=== PATIENT | female | born 1985 | race Caucasian/White ===

== ENCOUNTER → 2016-07-20 | Outpatient (CLI) | payer BC, OTHER ==
[~2016-07-20] MED LIST: CIPR-255 PO; FERR1TAB23 PO; LPR25 PO; METO25TA56 PO; METR500T PO; ONDA4TAB10 SL; PRENTAB26 PO
[2016-07-20 12:54] LABS: BASO % 0.3 %; BASO ABS # 0.02 K/uL (0-0.2); COMPLETE YES; EOS % 6.8 %; HEMATOCRIT 38.1 % (37-47); IG% 0.3 %; LYMPH % 25.6 %; MEAN CELL VOLUME 84.3 fL (80-100); MEAN CORPUSCULAR HEMOGLOBIN 28.5 pg (25-34); MEAN CORPUSCULAR HGB CONC 33.9 g/dl (32-36); MEAN PLATELET VOLUME 10.1 fL (7.4-10.4); PLATELET COUNT 275 K/uL (130-400); RED BLOOD COUNT 4.52 M/uL (4.2-5.4); WHITE BLOOD COUNT 7.03 K/uL (4.8-10.8)
== END | disposition home or self-care (01) ==
LOC: C.LAB1850 10:57
PROVIDERS: ATTEND Internal Medicine
DX: D64.9 Anemia, unspecified (principal); F43.22 Adjustment disorder with anxiety

== ENCOUNTER 2016-09-19 20:19 | Emergency (ER) | payer BC, OTHER ==
[~2016-09-19] VITALS: Ht 160 cm; Wt 80.3 kg
[~2016-09-19 20:19] MED LIST changes: -CIPR-255 PO; -LPR25 PO; -METR500T PO; -ONDA4TAB10 SL
[2016-09-19 20:22] VITALS: TEMP 36.7; Ht 160 cm; Wt 80.3 kg
[2016-09-19] MEDS ORDERED: METOPROLOL TARTRATE 25 MG TAB PO ONE (20:30)
[2016-09-19] MEDS ORDERED: LPR25 PO (20:52)
[2016-09-19 21:07] VITALS: BP 122/78; PULSE 92; O2SAT 95
--- NOTE | 2016-09-19 23:45 | EMERGENCY ROOM VISIT NOTE ---
History First contact with patient: 20:25 Chief Complaint: MEDICATION REFILL REQUEST Stated Complaint: FORGOT TO [facility], PHARM IS CLOSED History of Present Illness The patient is a 30 year old female who presents to the Emergency Room requesting a dose of Lopressor. The patient has a history of SVT and is on 25 mg twice daily. The patient completed her prescription this morning, and called in her refill. 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 She is concerned that she may have recurrence of her symptoms. She is currently asymptomatic and rates her discomfort a 0/10. Review of Systems More than 6 systems were reviewed and otherwise negative with the exception of history of present illness. Past Medical/Surgical History Medical Problems: (1) Anxiety (2) section (3) ECOLI UTI (4) Fever (5) Mitral valve prolapse (6) with viral (7) with viral (8) Supraventricular tachycardia (9) Tachycardia (10) Viral disease affecting in third trimester, antepartum Family History Diabetes mellitus Heart disease Hypertension Social History Smoking Status: Never Smoker Alcohol Use: occasionally Drug Use: none Marital Status: in relationship Housing Status: lives with family Occupation Status: employed Current/Historical Medications Scheduled Metoprolol Tartrate (Lopressor), 25 MG PO BID Multivit/Min/Iron/Fol Ac/Pren ( Vitamin), 1 TAB PO QAM Allergies Coded Allergies: No Known Allergies (Verified , 03/22/16) Physical Exam Vital Signs Date Time Temp Pulse Resp B/P Pulse Ox O2 Delivery O2 Flow Rate FiO2 09/19/16 21:07 92 18 122/78 95 09/19/16 20:22 36.7 96 18 117/75 95 Room Air Pain Rating (0-10): 0 Physical Exam VITALS: Vitals are noted on the nurse's note and reviewed by myself. Vital signs stable. GENERAL: Well-developed, well-nourished, white female, who is in no acute distress and resting comfortably. Patient is cooperative with the examination. HEART: Regular rate and rhythm without murmurs gallops or rubs. LUNGS: Clear to auscultation bilaterally without wheezes, rales or rhonchi. No retractions or accessory muscle use. Medical Decision & Procedures Medications Administered Medications (Trade) Dose Ordered Sig/Anthony Route Start Time Stop Time Status Last Admin Dose Admin Metoprolol Tartrate (Lopressor Tab) 25 mg NOW ONCE PO 09/19/16 20:30 09/19/16 20:31 DC 09/19/16 21:06 25 MG ED Course Physical exam and history were performed. Nursing notes and EMR were reviewed. Patient appears to have a need for a dose of Toprol. The patient evidently takes 25 mg twice daily, and was given a dose of the medication here in the department. She is confident that she will be able to make it to the pharmacy in the morning, and does not need an additional dose to go home with. The patient was invited back to the emergency department with any new, worsening, or concerning symptoms. The chart was completed utilizing [employer] Speech Voice Recognition Software. Grammatical errors, random word insertions, pronoun errors, and incomplete sentences are an occasional consequence of this system due to software limitations, ambient noise, and hardware issues. Any formal questions or concerns about the content, text, or information contained within the body of this dictation should be directly addressed to the provider for clarification. . Medical Decision Differential diagnosis includes, but is not limited to: Need for medication, medication refill, SVT, and others Impression Primary Impression: Medication administered Departure Information Dispostion Home / Self-Care Condition GOOD Forms HOME CARE DOCUMENTATION FORM, IMPORTANT VISIT INFORMATION Patient Instructions My [facility] Additional Instructions You were seen and evaluated today on an emergency basis only. This is not a substitute for, or an effort to provide, complete comprehensive medical care. It is not possible to recognize and treat all injuries or illnesses in a single emergency department visit. For this reason it is recommended that you followup with your primary care physician with any ongoing or persistent symptoms. Continue your medications as described. You are welcome to return to the emergency department anytime with new, worsening, or concerning symptoms.
== END 2016-09-19 21:08 | disposition home or self-care (01) ==
LOC: C.EDB 20:20 → C.EDD 21:08
DX: Z76.0 Encounter for issue of repeat prescription (principal); I47.1 Supraventricular tachycardia; F41.9 Anxiety disorder, unspecified; I34.1 Nonrheumatic mitral (valve) prolapse; Z83.3 Family history of diabetes mellitus; Z82.49 Family history of ischemic heart disease and other diseases of the circulatory system

== ENCOUNTER 2016-09-28 08:35 | Emergency (ER) | payer BC, OTHER ==
[~2016-09-28] VITALS: Ht 160 cm; Wt 71.0 kg
[~2016-09-28 08:35] MED LIST changes: -FERR1TAB23 PO; +LPR25 PO; -METO25TA56 PO
[2016-09-28 08:41] VITALS: TEMP 36.9; Ht 160 cm; Wt 71.0 kg
--- NOTE | 2016-09-28 09:10 | EMERGENCY ROOM VISIT NOTE ---
ED Visit Note First contact with patient: 09:07 CHIEF COMPLAINT: Allergic reaction HISTORY OF PRESENT ILLNESS: This 30-year-old female is patient presents to the emergency department via EMS after they developed sudden onset of hives and itching that started about 7 AM this morning. Patient states she will comply around 5 this morning having some abdominal cramps secondary to her menstrual period, she took 2 Aleve and went back to bed. She woke up at 7 with itching, redness, swelling of her hands and feet, and noted hives all over her body. She also states she felt that her face and lips were swollen, and she felt some difficulty breathing. She called the ambulance, who noted that her symptoms were improving on arrival and she did not have any notable facial swelling at that time. Patient states her symptoms lasted about 30-45 minutes and self resolved, she did not take any medications to treat her allergic reaction. She states she has taken Aleve one other time with no difficulties. Her only other recent change was a new body wash that she used during her shower last night at 8 PM. The patient does not have swelling of the face and lips and does not currently have a sensation of swelling in the throat. The patient has no current shortness of breath. Has not had previous reactions and like this before. The patient was offered IV Benadryl by EMS, however she declined this because her symptoms were improving. Per the patient she was noted to have an elevated heart rate in the 140s by EMS, which is why she was brought to the ER. Patient states she has a history of SVT and is prescribed metoprolol twice a day, she did not take her morning dose yet today. There have been no other changes in the patient's soaps, detergents, foods, medications, or other environmental factors. REVIEW OF SYSTEMS: A review of systems was performed with positives and pertinent negatives listed in the history of present illness. All other systems were reviewed and are negative. ALLERGIES: See chart MEDICATIONS: See chart PMH: See chart SOCIAL HISTORY: See chart PHYSICAL EXAM:VITALS: Vitals are noted on the nurse's note and reviewed by myself. Vital signs stable. GENERAL: Pleasant and cooperative, in no acute distress, non-diaphoretic, well- developed well-nourished. THROAT: No pharyngeal edema or injection, no exudates or tonsillar hypertrophy. Airway patent. No tongue swelling noted. LUNGS: Clear to auscultation and breath sounds equal, no wheezes, rales, or rhonchi. EYES: PERRLA, EOMI, no discharge or injection. NEUROLOGICAL: Alert and oriented to person, place, and time. Normal sensation to light and sharp touch. HEART: Regular rate without murmurs, ectopy, gallops, or rubs. SKIN: No hives or rash noted. No erythema or swelling to the hands or feet. The lips are not swollen. There is no periorbital swelling. EMERGENCY DEPARTMENT COURSE: I examined the patient. She states that her symptoms have fully resolved, she still remains mildly tachycardic. The patient was given IV fluid bolus, oral Benadryl and Zantac. She was monitored in the ED for more than 2 hours with no return of allergic symptoms. Tachycardia resolved. She felt much improved and was discharged in stable condition with the instructions for continued management and follow-up. Medication Reconciliation: I attest that I have personally reviewed the patient' s current medication list. Blood pressure screening: The patient was found to have normal blood pressure on screening and does not require follow-up for repeat blood pressure check. Problem List Medical Problems: (1) Anxiety Status: Chronic (2) section Status: Resolved (3) Mitral valve prolapse Status: Chronic (4) Supraventricular tachycardia Status: Chronic Current/Historical Medications Scheduled Metoprolol Tartrate (Lopressor), 25 MG PO BID Allergies Coded Allergies: No Known Allergies (Verified , 09/28/16) Vital Signs Date Time Temp Pulse Resp B/P (MAP) Pulse Ox O2 Delivery O2 Flow Rate FiO2 09/28/16 11:30 85 16 102/66 99 Room Air 09/28/16 10:33 79 16 99/66 98 Room Air 09/28/16 08:41 36.9 108 16 113/90 97 Room Air 09/28/16 08:39 110 Medications Administered Medications (Trade) Dose Ordered Sig/Anthony Route Start Time Stop Time Status Last Admin Dose Admin Sodium Chloride 1,000 ml @ 999 mls/hr Q1H1M STAT IV 09/28/16 09:33 09/28/16 10:33 DC 09/28/16 09:42 999 MLS/HR Diphenhydramine HCl (Benadryl Cap) 25 mg NOW ONCE PO 09/28/16 09:45 09/28/16 09:46 DC 09/28/16 09:42 25 MG Ranitidine HCl (zANTac TAB) 150 mg NOW ONCE PO 09/28/16 09:45 09/28/16 09:46 DC 09/28/16 09:41 150 MG Ondansetron HCl (Zofran Inj) 4 mg NOW STAT IV 09/28/16 09:43 09/28/16 09:44 DC 09/28/16 10:04 4 MG Departure Information Impression Primary Impression: Acute allergic reaction Dispostion Home / Self-Care Condition GOOD Referrals RV. Butts MD (PCP) Patient Instructions ED Allergic Reaction General Other, My [facility] Additional Instructions You have been treated in the Emergency Department for an Allergic Reaction. You have been treated and monitored in the Emergency Department appropriately. You may take Benadryl (diphenhydramine) 25-50 mg orally every 6 hours as needed for itching or rash.. This medication is [id number] and you will NOT need a prescription to purchase this at your local pharmacy. Drink plenty of fluids to stay well hydrated. As with every Emergency Department visit, you should follow-up with your primary care provider in a few days for reevaluation. Return to the Emergency Department if your current symptoms worsen despite treatment course outlined above, or if you develop any of the following symptoms : wheezing, tongue or face swelling, tightness in your throat, shortness of breath, or fainting. Problem Qualifiers Primary Impression: Acute allergic reaction Encounter type: initial encounter Qualified Codes: T78.40XA - Allergy, unspecified, initial encounter
[2016-09-28] MEDS ORDERED: SODIUM CHLORIDE 0.9% 1000ML 1,000 ML IV STA (09:33)
[2016-09-28] MEDS ORDERED: ONDANSETRON INJ 2 MG/ML 2 ML VIAL IV STA (09:43)
[2016-09-28] MEDS ORDERED: RANITIDINE HCL 150 MG TAB PO ONE (09:45)
[2016-09-28 11:30] VITALS: BP 102/66; PULSE 85; O2SAT 99
== END 2016-09-28 11:45 | disposition home or self-care (01) ==
LOC: EDBD 08:35 → C.EDB 08:36
DX: T78.40XA Allergy, unspecified, initial encounter (principal); X58.XXXA Exposure to other specified factors, initial encounter; I34.1 Nonrheumatic mitral (valve) prolapse; F41.9 Anxiety disorder, unspecified; Z79.899 Other long term (current) drug therapy

== ENCOUNTER 2016-10-24 05:52 | Emergency (ER) | payer BC, OTHER ==
[~2016-10-24] VITALS: Ht 157.5 cm; Wt 69.9 kg
[~2016-10-24 05:52] MED LIST changes: -PRENTAB26 PO
[2016-10-24 05:56] VITALS: TEMP 36.7; Ht 157.5 cm; Wt 69.9 kg
[2016-10-24] MEDS ORDERED: ONDANSETRON 4MG OD TAB PO STA (06:34)
[2016-10-24 06:41] LABS: BASO % 0.1 %; BASO ABS # 0.01 K/uL (0-0.2); COMPLETE YES; EOS % 2.9 %; HEMATOCRIT 44.6 % (37-47); IG% 0.4 %; LYMPH % 16.1 %; MEAN CELL VOLUME 82.9 fL (80-100); MEAN CORPUSCULAR HEMOGLOBIN 27.9 pg (25-34); MEAN CORPUSCULAR HGB CONC 33.6 g/dl (32-36); MEAN PLATELET VOLUME 9.3 fL (7.4-10.4); MONO % 6.2 %; NEUT % 74.3 %; PLATELET COUNT 392 K/uL (130-400); RED BLOOD COUNT 5.38 M/uL (4.2-5.4); WHITE BLOOD COUNT 13.68 K/uL (4.8-10.8)
[2016-10-24 06:43] LABS: CREATININE 0.86 mg/dl (0.60-1.20); POTASSIUM 3.6 mmol/L (3.5-5.1)
[2016-10-24 06:44] LABS: URINE APPEARANCE CLEAR (CLEAR); URINE BILIRUBIN NEG (NEG); URINE COLOR YELLOW; URINE EPITHELIAL CELL AUTO >30 /lpf (0-5); URINE NITRITE NEG (NEG); URINE SPECIFIC GRAVITY 1.029 (1.000-1.030); UROBILINOGEN NEG (NEG); ZZUR CULT IF INDIC CLEAN CATCH NO
--- NOTE | 2016-10-24 06:44 | EMERGENCY ROOM VISIT NOTE ---
History Report prepared by Amina: Juliana Lindsay Under the Supervision of: Dr. Jalil Contreras M.D. First contact with patient: 06:27 Chief Complaint: ABDOMINAL PAIN Stated Complaint: SEVERE STOMACH PAIN Nursing Triage Summary: Patient c/o upper abdominal pain with associated n/v that began yesterday. History of Present Illness The patient is a 31 year old female who presents to the Emergency Room with complaints of worsening epigastric abdominal pain that started 5 hours ago, around 0100. The patient states that the pain woke her up from sleep and she was unable to sleep afterward. She is also experiencing nausea and diarrhea. The diarrhea started yesterday. The patient denies vomiting as well as fevers and chills. She states that she experienced an achy feeling in her bilateral lower extremities last night, but she denies any lower extremity pain currently. The patient states that she ate [employer] 2 days ago and suspects that the pizza could have made her sick. However, she states that no one else that ate the pizza got sick. The patient states that the only thing that she ate yesterday was yogurt. She experienced similar abdominal pain and associated diarrhea in the past when she was here for an allergic reaction 1 month ago. She states that she experienced abdominal pain and diarrhea then it resolved and she developed hives. The patient states that she had an E. coli infection in her urine in 2010, but denies any history of infections in her stool. Source of History: patient Onset: 5 hours ago, around 0100 Position: abdomen (epigastric) Quality: other (abdominal pain) Timing: worsening Associated Symptoms: + nausea, + diarrhea, No fevers, No chills, No vomiting Note: ache in bilateral lower extremities Review of Systems All systems have been listed, reviewed, and are negative other than those previously mentioned. Please see Additional Medical History Sheet. Past Medical & Surgical Medical Problems: (1) Anxiety (2) section (3) ECOLI UTI (4) Fever (5) Mitral valve prolapse (6) with viral (7) with viral (8) Supraventricular tachycardia (9) Tachycardia (10) Viral disease affecting in third trimester, antepartum Family History Cancer Diabetes mellitus Heart disease Hypertension Lung disease Social History Smoking Status: Never Smoker Alcohol Use: occasionally Drug Use: none Marital Status: in relationship Housing Status: lives with family Occupation Status: employed Current/Historical Medications Scheduled Metoprolol Tartrate (Lopressor), 25 MG PO BID Ondasetron Odt (Zofran Odt), 4 MG SL Q6H Allergies Coded Allergies: Dicyclomine (Verified Allergy, Intermediate, hives, extremity swelling, 10/24/16) po Bentyl given in ER pt had reaction with in 30 mins with hives, swelling Physical Exam Vital Signs Date Time Temp Pulse Resp B/P (MAP) Pulse Ox O2 Delivery O2 Flow Rate FiO2 10/24/16 13:10 106 18 107/68 98 10/24/16 12:01 101 18 114/77 96 Room Air 10/24/16 10:08 109 20 109/79 100 Room Air 10/24/16 09:05 103 10/24/16 08:55 110 20 117/65 100 10/24/16 08:44 139 10/24/16 08:12 125 16 97 10/24/16 08:12 125 16 97 10/24/16 08:11 109/89 10/24/16 08:11 109/89 10/24/16 08:07 134 15 100 10/24/16 08:07 134 15 100 10/24/16 08:06 119/86 10/24/16 08:06 119/86 10/24/16 08:03 117/80 10/24/16 08:03 117/80 10/24/16 08:02 135 16 100 10/24/16 08:02 135 16 100 10/24/16 07:57 105/82 10/24/16 07:57 105/82 10/24/16 07:52 140 20 129/86 100 10/24/16 05:56 36.7 102 18 109/73 97 Room Air Physical Exam GENERAL: Patient awake, alert, oriented x 3. Patient follows commands. Patient does not appear toxic. Patient is adequately hydrated and well- nourished. SKIN: No erythema, pallor, cyanosis or rash HEENT: Normal head, pupils equal, reactive to light and accommodation. Oral cavity and posterior pharynx appear normal. Neck: Without adenopathy, no neck vein distention. LUNGS: Clear to auscultation. No wheezes, no rales, no rhonchi. HEART: No murmurs. No gallops. No rubs ABDOMEN: Vague epigastric tenderness. Bowel sounds present. No masses, no rebound, no guarding, no hepatomegaly or splenomegaly. EXTREMITIES: No signs of trauma. No pedal or pretibial edema. No calf or thigh tenderness. NEUROLOGIC: Cranial nerves II-XII within normal limits. No gross motor sensory function deficits. Medical Decision & Procedures Laboratory Results 10/24/16 06:08 Red Blood Count 5.38, Mean Corpuscular Volume 82.9, Mean Corpuscular Hemoglobin 27.9, Mean Corpuscular Hemoglobin Concent 33.6, Mean Platelet Volume 9.3, Neutrophils (%) (Auto) 74.3, Lymphocytes (%) (Auto) 16.1, Monocytes (%) (Auto) 6.2, Eosinophils (%) (Auto) 2.9, Basophils (%) (Auto) 0.1, Neutrophils # (Auto) 10.17, Lymphocytes # (Auto) 2.20, Monocytes # (Auto) 0.85, Eosinophils # (Auto) 0.39, Basophils # (Auto) 0.01 10/24/16 06:08 Test 10/24/16 06:08 White Blood Count 13.68 K/uL (4.8-10.8) Red Blood Count 5.38 M/uL (4.2-5.4) Hemoglobin 15.0 g/dL (12.0-16.0) Hematocrit 44.6 % (37-47) Mean Corpuscular Volume 82.9 fL (80-100) Mean Corpuscular Hemoglobin 27.9 pg (25-34) Mean Corpuscular Hemoglobin Concent 33.6 g/dl (32-36) Platelet Count 392 K/uL (130-400) Mean Platelet Volume 9.3 fL (7.4-10.4) Neutrophils (%) (Auto) 74.3 % Lymphocytes (%) (Auto) 16.1 % Monocytes (%) (Auto) 6.2 % Eosinophils (%) (Auto) 2.9 % Basophils (%) (Auto) 0.1 % Neutrophils # (Auto) 10.17 K/uL (1.4-6.5) Lymphocytes # (Auto) 2.20 K/uL (1.2-3.4) Monocytes # (Auto) 0.85 K/uL (0.11-0.59) Eosinophils # (Auto) 0.39 K/uL (0-0.5) Basophils # (Auto) 0.01 K/uL (0-0.2) RDW Standard Deviation 38.8 fL (36.4-46.3) RDW Coefficient of Variation 12.8 % (11.5-14.5) Immature Granulocyte % (Auto) 0.4 % Immature Granulocyte # (Auto) 0.06 K/uL (0.00-0.02) Nucleated RBC Absolute Count (auto) 0.00 K/uL (0-0) Nucleated Red Blood Cells % 0.0 % Urine Color YELLOW Urine Appearance CLEAR (CLEAR) Urine pH 6.0 (4.5-7.5) Urine Specific [place] 1.029 (1.000-1.030) Urine Protein TRACE (NEG) Urine Glucose (UA) NEG (NEG) Urine Ketones NEG (NEG) Urine Occult Blood TRACE (NEG) Urine Nitrite NEG (NEG) Urine Bilirubin NEG (NEG) Urine Urobilinogen NEG (NEG) Urine Leukocyte Esterase NEG (NEG) Urine WBC (Auto) 1-5 /hpf (0-5) Urine RBC (Auto) 0-4 /hpf (0-4) Urine Hyaline Casts (Auto) 5-10 /lpf (0-5) Urine Epithelial Cells (Auto) >30 /lpf (0-5) Urine Bacteria (Auto) NEG (NEG) Urine Test NEG (NEG) Anion Gap 7.0 mmol/L (3-11) Est Creatinine Clear Calc Drug Dose 88.4 ml/min Estimated GFR () 105.8 Estimated GFR (Non- 91.3 BUN/Creatinine Ratio 16.0 (10-20) Calcium Level 9.0 mg/dl (8.5-10.1) Total Bilirubin 0.6 mg/dl (0.2-1) Aspartate Amino Transf (AST/SGOT) 12 U/L (15-37) Alanine Aminotransferase (ALT/SGPT) 21 U/L (12-78) Alkaline Phosphatase 116 U/L (45-117) Total Protein 9.1 gm/dl (6.4-8.2) Albumin 4.1 gm/dl (3.4-5.0) Globulin 5.0 gm/dl (2.5-4.0) Albumin/Globulin Ratio 0.8 (0.9-2) Lipase 149 U/L (73-393) Date/Time Source Procedure Growth Status 10/24/16 07:40 Stool C.difficile Toxin B Gene (PCR) - Final No C. difficile toxin B gene detected Complete Laboratory results as stated above per my review. Medications Administered Medications (Trade) Dose Ordered Sig/Anthony Route Start Time Stop Time Status Last Admin Dose Admin Dicyclomine HCl (Bentyl Tab) 20 mg ONE ONCE PO 10/24/16 06:45 10/24/16 06:46 DC 10/24/16 06:59 20 MG Ondansetron HCl (Zofran Odt) 4 mg NOW STAT PO 10/24/16 06:34 10/24/16 06:36 DC 10/24/16 06:38 4 MG Diphenhydramine HCl (Benadryl Inj) 50 mg NOW STAT IV 10/24/16 07:46 10/24/16 07:48 DC 10/24/16 07:51 50 MG Morphine Sulfate (MoRPHine SULFATE INJ) 6 mg Q1H PRN IV 10/24/16 08:00 10/24/16 13:25 DC 10/24/16 09:57 6 MG Sodium Chloride 1,000 ml @ 1,000 mls/hr Q1H ONCE IV 10/24/16 08:00 10/24/16 08:59 DC 10/24/16 08:06 1,000 MLS/HR Methylprednisolone Sodium Succinate (Solu-Medrol IV) 125 mg STK-MED ONCE .ROUTE 10/24/16 07:56 10/24/16 07:57 DC 10/24/16 08:00 125 MG Diphenhydramine HCl (Benadryl Inj) 25 mg NOW STAT IV 10/24/16 10:33 10/24/16 10:34 DC 10/24/16 11:07 25 MG Ondansetron HCl (ZOFRAN ODT 4MG Home Pack) 1 homepack UD ONCE PO 10/24/16 12:30 10/24/16 12:31 DC 10/24/16 12:30 1 HOMEPACK ED Course 0628: Past medical records reviewed. The patient was evaluated in room A12. A complete history and physical examination was performed. 0634: Ordered Zofran Odt 4 mg PO 0645: Ordered Bentyl Tab 20 mg PO 0743: The nurse informed me that the patient seemed to be having an allergic reaction to the Bentyl so I went to reevaluate the patient. Upon reevaluation, the patient had erythema to her skin, tachycardia, and slight shortness of breath. 0746: Ordered Benadryl 50 mg IV 0755: I reassessed the patient. She is still experiencing more symptoms of an allergic reaction. 0756: Ordered Solu-Medrol 125 mg IV 0800: Ordered Sodium Chloride 1000 ml @ 1000 mls/hr IV, Morphine Sulfate 6 mg IV 0904: The patient is feeling much better and her heart rate has improved. 1033: Ordered Benadryl Inj 25 mg IV 1220: Upon reevaluation, the patient appeared to have improvement of her symptoms. The rash has resolve and the abdominal pain has subsided. She feels well enough to go home. I discussed today's findings with her. She verbalized agreement of the treatment plan. She was discharged home. 1230: Ordered Ondansetron HCl 1 homepack PO Medical Decision Nurses notes reviewed. Medical history sheet reviewed. Differential diagnosis includes but is not limited to: acute gastroenteritis, bowel obstruction, diverticulitis, cholecystitis. Medication Reconciliation: I attest that I have personally reviewed the patient' s current medication list. Blood pressure Screening: Patient was found to have normal blood pressure on screening and does not require follow up. Multiple labs were obtained. Please see above. WBC was slightly high. The patient was given IV fluids. The patient was given oral Bentyl and IV Zofran. She has had Zofran the past without reaction. The patient did develop an allergic reaction most likely from the Bentyl. She developed erythema over much of her body including her hands and feet. She had no wheezes. She had no respiratory distress but did have tachycardia. That resolved after treatment with Benadryl and solumedrol. Patient was observed for over 5 hours. At time of discharge the patient had minimal to no abdominal pain and the rash had completely resolved. The patient be sent home with prescription for Zofran. The patient is to take additional Benadryl as needed. She was instructed to drink extra fluids. White count is minimally elevated. C. difficile was negative. Medication Reconciliation: I attest that I have personally reviewed the patient' s current medication list. Blood pressure Screening: Patient was found to have normal blood pressure on screening and does not require follow up. Impression Primary Impression: Acute gastroenteritis Additional Impression: Acute allergic reaction Scribe Attestation The scribe's documentation has been prepared under my direction and personally reviewed by me in its entirety. I confirm that the note above accurately reflects all work, treatment, procedures, and medical decision making performed by me. Departure Information Dispostion Home / Self-Care Prescriptions Ondasetron Odt (ZOFRAN ODT) 4 Mg Tab 4 MG SL Q6H for Nausea, #10 TAB Prov: Jalil Contreras M.D. 10/24/16 Referrals RV. Butts MD (PCP) Forms HOME CARE DOCUMENTATION FORM, IMPORTANT VISIT INFORMATION Patient Instructions My [facility] Additional Instructions 1 Zofran every 4 hours as needed for nausea. Drink plenty of fluids. 25-50 mg of Benadryl every 4 hours as needed for allergic reaction. Follow-up with your family physician in 2-3 days if symptoms have not resolved. Return here sooner if abdominal pain or allergic reaction are getting worse. Problem Qualifiers Additional Impression: Acute allergic reaction Encounter type: initial encounter Qualified Codes: T78.40XA - Allergy, unspecified, initial encounter
[2016-10-24] MEDS ORDERED: DICYCLOMINE HCL 20 MG TAB PO ONE (06:45)
[2016-10-24 06:46] LABS: ALB/GLOB RATIO 0.8 (0.9-2)
[2016-10-24 06:51] LABS: MANUAL MICROSCOPIC REQUIRED? NO; REVIEW REQ? NO
[2016-10-24] MEDS ORDERED: DiphenhydrAMINE HCL 50 MG/ML VIAL IV STA ×2 (07:46→10:33)
[2016-10-24] MEDS: MoRPHine SULFATE 10 MG/ML CARP/VIAL IV PRN ×2 (07:52→09:57)
[2016-10-24] MEDS ORDERED: METHYLPREDNISOLONE 125 MG VIAL IV STA (07:56)
[2016-10-24] MEDS ORDERED: METHYLPREDNISOLONE 125 MG VIAL ONE (07:56)
[2016-10-24] MEDS ORDERED: SODIUM CHLORIDE 0.9% 1000ML 1,000 ML IV ONE (08:00)
[2016-10-24] MEDS ORDERED: ONDA4TAB10 SL (12:27)
[2016-10-24] MEDS ORDERED: ONDANSETRON HOME PACK 4MG OD TAB PO ONE (12:30)
[2016-10-24 13:10] VITALS: BP 107/68; PULSE 106; O2SAT 98
== END 2016-10-24 13:11 | disposition home or self-care (01) ==
LOC: C.EDB 05:53 → C.EDA 13:11
DX: K52.9 Noninfective gastroenteritis and colitis, unspecified (principal); T78.40XA Allergy, unspecified, initial encounter; F41.9 Anxiety disorder, unspecified; Z79.899 Other long term (current) drug therapy; Z86.19 Personal history of other infectious and parasitic diseases; Z86.79 Personal history of other diseases of the circulatory system; Z82.49 Family history of ischemic heart disease and other diseases of the circulatory system; Z83.3 Family history of diabetes mellitus; Z83.6 Family history of other diseases of the respiratory system

== ENCOUNTER 2017-01-15 10:00 | Emergency (ER) | payer BC, OTHER ==
[~2017-01-15] VITALS: Ht 157.5 cm; Wt 69.7 kg
[~2017-01-15 10:00] MED LIST changes: +ONDA4TAB10 SL
[2017-01-15 10:04] VITALS: TEMP 36.8; Ht 157.5 cm; Wt 69.7 kg
--- NOTE | 2017-01-15 10:53 | DIAGNOSTIC IMAGING REPORT ---
CHEST ONE VIEW PORTABLE HISTORY: 31 years-old Female ED eval for cp and SOB. Acute chest pain with shortness of breath. Initial exam. COMPARISON: Chest radiograph 03/22/2016 TECHNIQUE: Portable upright AP view of the chest FINDINGS: Cardiomediastinal and hilar silhouettes are within normal limits. There is no pneumothorax, pleural effusion, focal airspace consolidation or overt pulmonary edema. The bones appear grossly intact. IMPRESSION: No acute cardiopulmonary process. The above report was generated using voice recognition software. It may contain grammatical, syntax or spelling errors. Electronically signed by: Jeremy Guerrero M.D. 01/15/2017 10:52 AM Dictated Date/Time: 01/15/2017 10:51 AM
[2017-01-15 10:59] LABS: HEMATOCRIT 36.4 % (37-47); MEAN CELL VOLUME 83.3 fL (80-100); MEAN CORPUSCULAR HEMOGLOBIN 27.9 pg (25-34); MEAN CORPUSCULAR HGB CONC 33.5 g/dl (32-36); MEAN PLATELET VOLUME 9.8 fL (7.4-10.4); PLATELET COUNT 265 K/uL (130-400); RED BLOOD COUNT 4.37 M/uL (4.2-5.4); WHITE BLOOD COUNT 5.69 K/uL (4.8-10.8)
[2017-01-15] MEDS ORDERED: SODIUM CHLORIDE 0.9% 1000ML 1,000 ML IV STA (10:59)
[2017-01-15] MEDS ORDERED: KETOROLAC TROMETHAMINE 30 MG/ML VIAL IV STA (11:05)
[2017-01-15 11:08] LABS: PARTIAL THROMBOPLASTIN RATIO 1.1
[2017-01-15 11:18] LABS: ALT/SGPT 18 U/L (12-78); AST/SGOT 11 U/L (15-37); BLOOD UREA NITROGEN 12 mg/dl (7-18); BUN/CREATININE RATIO 18.9 (10-20); CALCIUM 8.4 mg/dl (8.5-10.1); CARBON DIOXIDE 23 mmol/L (21-32); CHLORIDE 109 mmol/L (98-107); CREATININE 0.65 mg/dl (0.60-1.20); GLUCOSE 89 mg/dl (70-99); POTASSIUM 3.7 mmol/L (3.5-5.1); SODIUM 140 mmol/L (136-145)
[2017-01-15 11:23] LABS: ALB/GLOB RATIO 0.9 (0.9-2); ALKALINE PHOSPHATASE 82 U/L (45-117)
[2017-01-15 11:41] LABS: PREG INTERNAL NEGATIVE QC NEG CLEAR BACKGROUND; PREG INTERNAL POSITIVE QC POS CONTROL LINE
[2017-01-15 11:59] LABS: MAGNESIUM 2.1 mg/dl (1.8-2.4)
[2017-01-15 12:24] LABS: URINE APPEARANCE CLEAR (CLEAR); URINE BILIRUBIN NEG (NEG); URINE COLOR YELLOW; URINE EPITHELIAL CELL AUTO 20-30 /lpf (0-5); URINE NITRITE NEG (NEG); URINE SPECIFIC GRAVITY 1.019 (1.000-1.030); UROBILINOGEN NEG (NEG); ZZUR CULT IF INDIC CLEAN CATCH NO
[2017-01-15 12:26] LABS: MANUAL MICROSCOPIC REQUIRED? NO; REVIEW REQ? NO
--- NOTE | 2017-01-15 13:10 | EMERGENCY ROOM VISIT NOTE ---
History Report prepared by Amina: Julieth Gaytan Under the Supervision of: Dr. Casimiro Aaron M.D. First contact with patient: 10:44 Chief Complaint: CHEST PAIN Stated Complaint: DR REFERRED, OFF/ON CHEST PAIN SINCE History of Present Illness The patient is a 31 year old female who presents to the Emergency Room with complaints of intermittent chest pain starting 4 days ago. She was sent to the ED after speaking with a nurse at her PCP's office. She has had chest pain several times throughout the day which lasts for 5 minutes at a time. She has had chest pain in the past, but never for several days at a time. The pain goes into her left shoulder and down her left arm. Yesterday, she took a deep breath and felt a sharp pain in her chest and back. She only experienced this 1 time. She has also has SOB and heart palpitations over the past 4 days. Yesterday, she felt lightheaded. She reports a persistent headache for the past 3 days. She notes that 1 week ago she had some right abdominal pain and aching in her hips. She notes that she has had this pain at times since she had a tubal ligation 1 year ago. She denies any nausea, vomiting, diaphoresis, cough, congestion, diarrhea, urinary symptoms, fever, or chills. Her last menstrual period was 3 weeks ago. She is not on control. She has a history of SVT and mitral valve prolapse. She experiences SVT once a year which usually required adenosine in the ED. She was recommended to have an ablation in the future. Her currently symptoms do not feel like SVT. She is on metoprolol. She denies any history of clots or cancer. She denies any recent travel or surgery. Source of History: patient Onset: 4 days ago Position: chest Quality: sharp, other (pain) Timing: intermittent Modifying Factors (Worsening): breathing (deep breathing, one time) Associated Symptoms: + headache, + SOB, + abdominal pain (right), + back pain (episodic), No fevers, No chills, No diaphoresis, No cough, No nausea, No vomiting, No diarrhea, No urinary symptoms Note: Pt reports left shoulder and left arm pain, palpitations, lightheadedness, hip pain. Pt denies congestion. Review of Systems See HPI for pertinent positives and negatives. A total of ten systems were reviewed and were otherwise negative. Past Medical & Surgical Medical Problems: (1) Anxiety (2) section (3) ECOLI UTI (4) Fever (5) Mitral valve prolapse (6) with viral (7) with viral (8) Supraventricular tachycardia (9) Tachycardia (10) Viral disease affecting in third trimester, antepartum Family History Cancer Diabetes mellitus Heart disease Hypertension Lung disease Social History Smoking Status: Never Smoker Alcohol Use: occasionally Drug Use: none Marital Status: in relationship Housing Status: lives with family Occupation Status: employed Current/Historical Medications Scheduled Metoprolol Tartrate (Lopressor), 25 MG PO BID Ondasetron Odt (Zofran Odt), 4 MG SL Q6H Allergies Coded Allergies: Dicyclomine (Verified Allergy, Intermediate, hives, extremity swelling, ) po Bentyl given in ER pt had reaction with in 30 mins with hives, swelling Physical Exam Vital Signs Date Time Temp Pulse Resp B/P (MAP) Pulse Ox O2 Delivery O2 Flow Rate FiO2 01/15/17 13:23 68 18 108/66 100 01/15/17 13:13 67 01/15/17 11:25 67 18 114/67 100 Room Air 01/15/17 10:35 99 Room Air 01/15/17 10:33 73 01/15/17 10:04 36.8 80 20 124/76 99 Room Air Physical Exam GENERAL: Awake, alert, well-appearing, in no distress HENT: Normocephalic, atraumatic. Oropharynx unremarkable. EYES: Normal conjunctiva. Sclera non-icteric. NECK: Supple. No nuchal rigidity. FROM. No JVD. RESPIRATORY: Clear to auscultation. CARDIAC: Regular rate, normal rhythm. Extremities warm and well perfused. Pulses equal. ABDOMEN: Soft, non-distended. No tenderness to palpation. No rebound or guarding. No masses. RECTAL: Deferred. MUSCULOSKELETAL: Chest examination reveals no tenderness. The back is symmetrical on inspection without obvious abnormality. There is no CVA tenderness to palpation. No joint edema. LOWER EXTREMITIES: Calves are equal size bilaterally and non-tender. No edema. No discoloration. NEURO: Normal sensorium. No sensory or motor deficits noted. SKIN: No rash or jaundice noted. Medical Decision & Procedures ER Provider Diagnostic Interpretation: Radiology results as stated below per my review and radiologist interpretation: CHEST ONE VIEW PORTABLE HISTORY: 31 years-old Female ED eval for cp and SOB. Acute chest pain with shortness of breath. Initial exam. COMPARISON: Chest radiograph 03/22/2016 TECHNIQUE: Portable upright AP view of the chest FINDINGS: Cardiomediastinal and hilar silhouettes are within normal limits. There is no pneumothorax, pleural effusion, focal airspace consolidation or overt pulmonary edema. The bones appear grossly intact. IMPRESSION: No acute cardiopulmonary process. The above report was generated using voice recognition software. It may contain grammatical, syntax or spelling errors. Electronically signed by: Jeremy Guerrero M.D. 01/15/2017 10:52 AM Dictated Date/Time: 01/15/2017 10:51 AM Laboratory Results 01/15/17 10:35 01/15/17 10:35 Test 01/15/17 10:35 01/15/17 11:20 Red Blood Count 4.37 M/uL (4.2-5.4) Mean Corpuscular Volume 83.3 fL (80-100) Mean Corpuscular Hemoglobin 27.9 pg (25-34) Mean Corpuscular Hemoglobin Concent 33.5 g/dl (32-36) RDW Standard Deviation 37.9 fL (36.4-46.3) RDW Coefficient of Variation 12.5 % (11.5-14.5) Mean Platelet Volume 9.8 fL (7.4-10.4) Prothrombin Time 11.0 SECONDS (9.0-12.0) Prothromb Time International Ratio 1.0 (0.9-1.1) Activated Partial Thromboplast Time 29.3 SECONDS (21.0-31.0) Partial Thromboplastin Ratio 1.1 Anion Gap 8.0 mmol/L (3-11) Est Creatinine Clear Calc Drug Dose 116.8 ml/min Estimated GFR () 139.1 Estimated GFR (Non- 120.0 BUN/Creatinine Ratio 18.9 (10-20) Calcium Level 8.4 mg/dl (8.5-10.1) Magnesium Level 2.1 mg/dl (1.8-2.4) Total Bilirubin 0.4 mg/dl (0.2-1) Aspartate Amino Transf (AST/SGOT) 11 U/L (15-37) Alanine Aminotransferase (ALT/SGPT) 18 U/L (12-78) Alkaline Phosphatase 82 U/L (45-117) Total Creatine Kinase 50 U/L (26-192) Creatine Kinase MB < 0.5 ng/ml (0.5-3.6) Creatine Kinase MB Ratio (0-3.0) Troponin I < 0.015 ng/ml (0-0.045) Total Protein 7.6 gm/dl (6.4-8.2) Albumin 3.7 gm/dl (3.4-5.0) Globulin 3.9 gm/dl (2.5-4.0) Albumin/Globulin Ratio 0.9 (0.9-2) Thyroid Stimulating Hormone (TSH) 1.350 uIu/ml (0.300-4.500) Human Chorionic Gonadotropin, Qual NEG (NEG) Urine Color YELLOW Urine Appearance CLEAR (CLEAR) Urine pH 7.0 (4.5-7.5) Urine Specific [place] 1.019 (1.000-1.030) Urine Protein NEG (NEG) Urine Glucose (UA) NEG (NEG) Urine Ketones NEG (NEG) Urine Occult Blood TRACE (NEG) Urine Nitrite NEG (NEG) Urine Bilirubin NEG (NEG) Urine Urobilinogen NEG (NEG) Urine Leukocyte Esterase NEG (NEG) Urine WBC (Auto) 0 /hpf (0-5) Urine RBC (Auto) 5-10 /hpf (0-4) Urine Hyaline Casts (Auto) 1-5 /lpf (0-5) Urine Epithelial Cells (Auto) 20-30 /lpf (0-5) Urine Bacteria (Auto) NEG (NEG) Laboratory results reviewed by me Medications Administered Medications (Trade) Dose Ordered Sig/Anthony Route Start Time Stop Time Status Last Admin Dose Admin Sodium Chloride 1,000 ml @ 999 mls/hr Q1H1M STAT IV 01/15/17 10:59 01/15/17 11:59 DC 01/15/17 11:19 999 MLS/HR Ketorolac Tromethamine (Toradol Inj) 30 mg NOW STAT IV 01/15/17 11:05 01/15/17 11:07 DC 01/15/17 11:19 30 MG ECG Indication: chest pain Rate (beats per minute): 75 Rhythm: normal sinus Findings: no acute ischemic change, other (normal axis, no PA depression) ED Course 1058: The patient was evaluated in room B10. A complete history and physical exam was performed. 1059: NSS 1000 ml @ 999 mls/hr IV. 1105: Toradol Inj 30 mg IV. 1252: I reevaluated the patient. She is feeling better. I discussed results and discharge instructions: she verbalized understanding and agreement. The patient is ready for discharge. Medical Decision I reviewed the patient's past medical history, medications, and the nursing notes as described above. Differential diagnosis: arrhythmia, ectopy, pericarditis, myocarditis, ACS, pneumonia, bronchitis, dehydration, electrolyte abnormality. The patient is a 31-year-old woman with a past medical history of SVT presents emergency Department with intermittent episodes of chest pain and palpitations. History of present illness. Arrival patient is well-appearing, no acute distress, afebrile with stable vital signs. EKG is unremarkable without PA depressions or PHI. Negative Spodick sign. Sherly-myocarditis not likely. Troponin negative setting of several days of pain and otherwise has a heart score of 0, low risk. Perc negative. PE not likely. Chest x-ray unremarkable. No ectopy on telemetry during ED observation. Labs otherwise unremarkable. Findings and plan for follow-up d/w patient. Patient agreeable and d/c'd per discharge instructions. Medication Reconcilliation Current Medication List: was personally reviewed by me Blood Pressure Screening Patient's blood pressure: Normal blood pressure Blood pressure disposition: Did not require urgent referral Impression Primary Impression: Left sided chest pain Scribe Attestation The scribe's documentation has been prepared under my direction and personally reviewed by me in its entirety. I confirm that the note above accurately reflects all work, treatment, procedures, and medical decision making performed by me. Departure Information Dispostion Home / Self-Care Referrals RV. Butts MD (PCP) Patient Instructions Chest Pain - [facility], My [facility] Additional Instructions Please follow up with your glass grinder in the next 1-3 days for re-evaluation and possible holter monitor. Your exam, EKG, chest xray, and lab results did not show signs of an emergent condition at this time. Ensure hydration. Return to the emergency department for worsening symptoms as described in the accompanying instructions.
[2017-01-15 13:23] VITALS: BP 108/66; PULSE 68; O2SAT 100
== END 2017-01-15 13:20 | disposition home or self-care (01) ==
LOC: C.EDB 10:02
DX: R07.9 Chest pain, unspecified (principal); I47.1 Supraventricular tachycardia; F41.9 Anxiety disorder, unspecified; Z98.51 Tubal ligation status; Z80.9 Family history of malignant neoplasm, unspecified; Z83.3 Family history of diabetes mellitus; Z82.49 Family history of ischemic heart disease and other diseases of the circulatory system; Z79.899 Other long term (current) drug therapy

== ENCOUNTER 2017-01-19 13:10 | Emergency (ER) | payer BC, OTHER ==
[~2017-01-19] VITALS: Ht 157.5 cm; Wt 66.7 kg
[2017-01-19 13:20] VITALS: Ht 157.5 cm; Wt 66.7 kg
[2017-01-19] MEDS ORDERED: SODIUM CHLORIDE 0.9% 1000ML 1,000 ML IV STA (14:17)
[2017-01-19] MEDS ORDERED: ONDANSETRON INJ 2 MG/ML 2 ML VIAL IV STA (14:17)
--- NOTE | 2017-01-19 14:20 | EMERGENCY ROOM VISIT NOTE ---
History First contact with patient: 14:05 Chief Complaint: GI ASSESSMENT Stated Complaint: SEVERE STOMACH PAIN,DIARRHEA,VOMITING History of Present Illness The patient is a 31 year old female who presents to the Emergency Room with complaints of abdominal pain, nausea and diarrhea. The patient states that for the past 2 days, she has had upper abdominal pain with associated diarrhea and nausea. She has not been vomiting. She has been unable to eat and states that she is trying to drink fluids, but this makes her very nauseous. She states that she did make chicken for dinner 2 days ago prior to onset of symptoms and states that it did not smell right, but none of her family members who ate the same meal became sick. She denies any recent antibiotic use or unusual water sources. She states the pain is located across the upper abdomen and is crampy in nature. She denies any associated fever. She denies any history of abdominal surgeries. The patient reports that she is concerned because she has had multiple episodes of similar symptoms in the past and has never been evaluated for it. Review of Systems A complete 10 point review of systems was reviewed with the patient with pertinent positives and negatives as per history of present illness. All else were negative. Past Medical/Surgical History Medical Problems: (1) Anxiety (2) section (3) ECOLI UTI (4) Fever (5) Mitral valve prolapse (6) with viral (7) with viral (8) Supraventricular tachycardia (9) Tachycardia (10) Viral disease affecting in third trimester, antepartum Family History Cancer Diabetes mellitus Heart disease Hypertension Lung disease Social History Smoking Status: Never Smoker Alcohol Use: occasionally Drug Use: none Marital Status: in relationship Housing Status: lives with family Occupation Status: employed Current/Historical Medications Scheduled Metoprolol Tartrate (Lopressor), 25 MG PO BID Physical Exam Vital Signs Date Time Temp Pulse Resp B/P (MAP) Pulse Ox O2 Delivery O2 Flow Rate FiO2 01/19/17 18:23 36.7 89 18 151/93 100 01/19/17 17:35 89 18 151/93 01/19/17 17:02 88 18 100 Room Air 01/19/17 13:20 36.7 101 18 112/79 100 Room Air Physical Exam VITALS: Vitals are noted on the nurse's note and reviewed by myself. Vital signs stable. GENERAL: This is a 31-year-old female, in no acute distress, nondiaphoretic, well-developed well-nourished. SKIN: Capillary reflex less than 2 seconds. HEENT: Normocephalic. PERRLA. Mucous membranes moist. Neck is supple without nuchal rigidity. HEART: Regular rate and rhythm without murmurs gallops or rubs. LUNGS: Clear to auscultation bilaterally without wheezes, rales or rhonchi. ABDOMEN: Positive bowel sounds x 4. Soft, nontender, without masses or organomegaly. NEURO: Patient was alert and oriented to person place and time. Medical Decision & Procedures ER Provider Diagnostic Interpretation: ABDOMINAL ULTRASOUND, RIGHT UPPER QUADRANT HISTORY: upper abd pain, nausea. COMPARISON: Abdomen and pelvis CT 09/24/2015. FINDINGS: Pancreas: Obscured by overlying bowel gas. Liver: Unremarkable. Gallbladder: No gallbladder wall thickening. No gallstones. CBD: 5 mm. Right kidney: No hydronephrosis. IMPRESSION: No significant abnormality identified within the right upper quadrant. The pancreas was obscured by overlying bowel gas. Laboratory Results 01/19/17 14:35 Red Blood Count 5.30, Mean Corpuscular Volume 84.0, Mean Corpuscular Hemoglobin 27.9, Mean Corpuscular Hemoglobin Concent 33.3, Mean Platelet Volume 9.3, Neutrophils (%) (Auto) 70.1, Lymphocytes (%) (Auto) 14.8, Monocytes (%) (Auto) 10.3, Eosinophils (%) (Auto) 4.4, Basophils (%) (Auto) 0.1, Neutrophils # (Auto ) 5.62, Lymphocytes # (Auto) 1.18, Monocytes # (Auto) 0.82, Eosinophils # (Auto ) 0.35, Basophils # (Auto) 0.01 01/19/17 14:35 Test 01/19/17 13:23 01/19/17 14:35 Urine Color DK YELLOW Urine Appearance CLOUDY (CLEAR) Urine pH 5.5 (4.5-7.5) Urine Specific [place] 1.045 (1.000-1.030) Urine Protein 1+ (NEG) Urine Glucose (UA) NEG (NEG) Urine Ketones 1+ (NEG) Urine Occult Blood 2+ (NEG) Urine Nitrite NEG (NEG) Urine Bilirubin NEG (NEG) Urine Urobilinogen NEG (NEG) Urine Leukocyte Esterase NEG (NEG) Urine WBC (Auto) 1-5 /hpf (0-5) Urine RBC (Auto) 10-30 /hpf (0-4) Urine Hyaline Casts (Auto) 5-10 /lpf (0-5) Urine Epithelial Cells (Auto) >30 /lpf (0-5) Urine Bacteria (Auto) 1+ (NEG) Urine Renal Epithelial Cells /lpf (0-5) Urine Pathogenic Casts /lpf (0) Urine Yeast (Auto) (NONE PRSENT) Urine Test NEG (NEG) White Blood Count 8.00 K/uL (4.8-10.8) Red Blood Count 5.30 M/uL (4.2-5.4) Hemoglobin 14.8 g/dL (12.0-16.0) Hematocrit 44.5 % (37-47) Mean Corpuscular Volume 84.0 fL (80-100) Mean Corpuscular Hemoglobin 27.9 pg (25-34) Mean Corpuscular Hemoglobin Concent 33.3 g/dl (32-36) Platelet Count 264 K/uL (130-400) Mean Platelet Volume 9.3 fL (7.4-10.4) Neutrophils (%) (Auto) 70.1 % Lymphocytes (%) (Auto) 14.8 % Monocytes (%) (Auto) 10.3 % Eosinophils (%) (Auto) 4.4 % Basophils (%) (Auto) 0.1 % Neutrophils # (Auto) 5.62 K/uL (1.4-6.5) Lymphocytes # (Auto) 1.18 K/uL (1.2-3.4) Monocytes # (Auto) 0.82 K/uL (0.11-0.59) Eosinophils # (Auto) 0.35 K/uL (0-0.5) Basophils # (Auto) 0.01 K/uL (0-0.2) RDW Standard Deviation 38.8 fL (36.4-46.3) RDW Coefficient of Variation 12.9 % (11.5-14.5) Immature Granulocyte % (Auto) 0.3 % Immature Granulocyte # (Auto) 0.02 K/uL (0.00-0.02) Anion Gap 9.0 mmol/L (3-11) Est Creatinine Clear Calc Drug Dose 85.5 ml/min Estimated GFR () 104.3 Estimated GFR (Non- 90.0 BUN/Creatinine Ratio 21.9 (10-20) Calcium Level 8.7 mg/dl (8.5-10.1) Total Bilirubin 0.7 mg/dl (0.2-1) Aspartate Amino Transf (AST/SGOT) 17 U/L (15-37) Alanine Aminotransferase (ALT/SGPT) 19 U/L (12-78) Alkaline Phosphatase 98 U/L (45-117) Total Protein 8.5 gm/dl (6.4-8.2) Albumin 4.1 gm/dl (3.4-5.0) Globulin 4.4 gm/dl (2.5-4.0) Albumin/Globulin Ratio 0.9 (0.9-2) Lipase 100 U/L (73-393) Medications Administered Medications (Trade) Dose Ordered Sig/Anthony Route Start Time Stop Time Status Last Admin Dose Admin Sodium Chloride 1,000 ml @ 999 mls/hr Q1H1M STAT IV 01/19/17 14:17 01/19/17 15:17 DC 01/19/17 14:52 999 MLS/HR Ondansetron HCl (Zofran Inj) 4 mg NOW STAT IV 01/19/17 14:17 01/19/17 14:18 DC 01/19/17 14:52 4 MG Ketorolac Tromethamine (Toradol Inj) 30 mg NOW STAT IV 01/19/17 17:16 01/19/17 17:18 DC 01/19/17 17:35 30 MG ECG Indication: abdominal pain Rate (beats per minute): 101 Rhythm: sinus tachycardia Findings: no acute ischemic change, no ectopy Change: no significant change ED Course The patient was evaluated as above. Labs were drawn and IV access was obtained. Patient was medicated with 1 L normal saline solution and 4 mg Zofran IV. Right upper quadrant ultrasound was performed and read by radiology as above. Patient was reevaluated and Toradol was ordered for pain. Discharge instructions were reviewed with the patient. The patient verbalized understanding of my assessment and treatment plan and was discharged home in good condition. Medical Decision Differential diagnosis includes gastroenteritis, colitis, cholecystitis, pancreatitis, hepatitis, GERD, among others. The patient is a 31-year-old female who presents today complaining of crampy upper abdominal pain, diarrhea and nausea. Labs revealed no leukocytosis, anemia or concerning electrolyte abnormalities. Urinalysis was suggestive of contamination and will be sent for culture. Urine was negative. EKG was interpreted by myself and shows a sinus tachycardia. The patient has no tenderness on exam. As she has had multiple episodes of upper abdominal pain and nausea in the past, I did choose to perform right upper quadrant ultrasound to rule out biliary disease. This was read by radiology and was within normal limits. Patient was hydrated with normal saline and medicated with Zofran and Toradol with some relief of symptoms. Patient likely has a gastroenteritis and was encouraged to follow-up with her primary care provider for further evaluation of these symptoms. She was given a home pack of Zofran for symptomatic relief. Based on the patient's presentation and work up, I feel the patient is stable for outpatient treatment. The patient was educated to return to the emergency department for any worsening of their current condition or new/concerning symptoms. She will follow up with her PCP. Medication Reconcilliation Current Medication List: was personally reviewed by me Blood Pressure Screening Patient's blood pressure: Elevated blood pressure Blood pressure disposition: Elevated BP felt to be situational Impression Primary Impression: Diarrhea Departure Information Dispostion Home / Self-Care Condition GOOD Referrals No Doctor, Assigned (PCP) Patient Instructions My [facility] Additional Instructions You have been prescribed Zofran to be used for any nausea or vomiting. Take as prescribed. For pain control, you can use the following [id number] medicines (if >12 yo): - Regular strength (325mg/tab) Tylenol (acetaminophen) 2 tabs every 4-6 hours as needed. Do not exceed 12 tablets in a 24 hour period. Avoid taking more than 4 grams (4000 mg) of Tylenol per day. This includes any other sources of acetaminophen you may take on a regular basis. - Regular strength (200 mg/tab) Advil (ibuprofen) 1-2 tabs every 4-6 hours as needed. Do not exceed a dose of 3200 mg per day. Rest and drink plenty of fluids. Follow-up with your primary care provider for further evaluation. Return here for any worsening or new/concerning symptoms. Problem Qualifiers Primary Impression: Diarrhea Diarrhea type: unspecified type Qualified Codes: R19.7 - Diarrhea, unspecified
[2017-01-19 14:53] LABS: BASO % 0.1 %; BASO ABS # 0.01 K/uL (0-0.2); COMPLETE YES; EOS % 4.4 %; HEMATOCRIT 44.5 % (37-47); IG% 0.3 %; LYMPH % 14.8 %; LYMPH ABS # 1.18 K/uL (1.2-3.4); MEAN CORPUSCULAR HEMOGLOBIN 27.9 pg (25-34); MEAN CORPUSCULAR HGB CONC 33.3 g/dl (32-36); MEAN PLATELET VOLUME 9.3 fL (7.4-10.4); MONO % 10.3 %; NEUT % 70.1 %; PLATELET COUNT 264 K/uL (130-400)
[2017-01-19 15:12] LABS: BUN/CREATININE RATIO 21.9 (10-20); CALCIUM 8.7 mg/dl (8.5-10.1); CREATININE 0.87 mg/dl (0.60-1.20); POTASSIUM 3.9 mmol/L (3.5-5.1)
[2017-01-19 15:15] LABS: ALB/GLOB RATIO 0.9 (0.9-2)
--- NOTE | 2017-01-19 16:47 | DIAGNOSTIC IMAGING REPORT ---
ABDOMINAL ULTRASOUND, RIGHT UPPER QUADRANT HISTORY: upper abd pain, nausea. COMPARISON: Abdomen and pelvis CT 09/24/2015. FINDINGS: Pancreas: Obscured by overlying bowel gas. Liver: Unremarkable. Gallbladder: No gallbladder wall thickening. No gallstones. CBD: 5 mm. Right kidney: No hydronephrosis. IMPRESSION: No significant abnormality identified within the right upper quadrant. The pancreas was obscured by overlying bowel gas. Electronically signed by: Nate Joshi M.D. 01/19/2017 4:45 PM Dictated Date/Time: 01/19/2017 4:42 PM
[2017-01-19] MEDS ORDERED: KETOROLAC TROMETHAMINE 30 MG/ML VIAL IV STA (17:16)
[2017-01-19] MEDS ORDERED: ONDA4TAB10 SL (18:08)
[2017-01-19 18:23] VITALS: BP 151/93; PULSE 89; TEMP 36.7; O2SAT 100
[2017-01-19 18:33] LABS: URINE APPEARANCE CLOUDY (CLEAR); URINE COLOR DK YELLOW; URINE EPITHELIAL CELL AUTO >30 /lpf (0-5); URINE NITRITE NEG (NEG); URINE PH 5.5 (4.5-7.5); URINE SPECIFIC GRAVITY 1.045 (1.000-1.030); UROBILINOGEN NEG (NEG); ZZUR CULT IF INDIC CLEAN CATCH YES
[2017-01-19 18:38] LABS: MANUAL MICROSCOPIC REQUIRED? NO; REVIEW REQ? YES; URINE BILIRUBIN NEG (NEG)
== END 2017-01-19 18:24 | disposition home or self-care (01) ==
LOC: C.EDB 13:11
DX: R19.7 Diarrhea, unspecified (principal); R10.10 Upper abdominal pain, unspecified; I34.1 Nonrheumatic mitral (valve) prolapse; F41.9 Anxiety disorder, unspecified; Z87.440 Personal history of urinary (tract) infections; Z79.899 Other long term (current) drug therapy; Z80.9 Family history of malignant neoplasm, unspecified; Z83.3 Family history of diabetes mellitus; Z82.49 Family history of ischemic heart disease and other diseases of the circulatory system

== ENCOUNTER 2017-01-20 19:13 | Emergency (ER) | payer BC, OTHER ==
[~2017-01-20] VITALS: Ht 157.5 cm; Wt 67.4 kg
[2017-01-20 19:17] VITALS: TEMP 36.6; Ht 157.5 cm; Wt 67.4 kg
[2017-01-20] MEDS ORDERED: SODIUM CHLORIDE 0.9% 1000ML 1,000 ML IV STA ×2 (19:25→20:55)
[2017-01-20] MEDS ORDERED: ONDANSETRON INJ 2 MG/ML 2 ML VIAL IV STA ×2 (19:25→21:07)
--- NOTE | 2017-01-20 19:31 | EMERGENCY ROOM VISIT NOTE ---
History Report prepared by Amina: Zeus Louise Under the Supervision of: Dr. Alvino Barrera D.O. First contact with patient: 19:19 Chief Complaint: SHORTNESS OF BREATH Stated Complaint: SOB,HEARTBETING FAST AND HARD History of Present Illness The patient is a 31 year old female who presents to the Emergency Room with complaints of shortness of breath that began last week. Ever since then, she has been battling GI symptoms such as diarrhea and nausea. However, last night the patient began to feel heart palpitations and more short of breath with exertion as well. She is having a strange feeling in her chest that she describes as "not getting enough oxygen throughout her body." She has a history of SVT and a mitral valve prolapse and is taking Metoprolol twice a day. She took her morning dose today. She denies any pain or swelling in her legs. She denies any history of blood clots in her legs or lungs. She is not on control and is currently on her period. She denies any problems with her thyroid. She has had 3 sections. She is currently nauseated. Source of History: patient Onset: 1 week ago Position: other (Respiratory System) Symptom Intensity: moderate Quality: other (Shortness of breath) Timing: other (Persistent) Modifying Factors (Worsening): exertion Associated Symptoms: + chest pain (Sensation of not getting enough oxygen into her body), + nausea, + diarrhea, No vomiting Review of Systems See HPI for pertinent positives & negatives. A total of 10 systems reviewed and were otherwise negative. Past Medical & Surgical Medical Problems: (1) Anxiety (2) section (3) ECOLI UTI (4) Fever (5) Mitral valve prolapse (6) with viral (7) with viral (8) Supraventricular tachycardia (9) Tachycardia (10) Viral disease affecting in third trimester, antepartum Family History Cancer Diabetes mellitus Heart disease Hypertension Lung disease Social History Smoking Status: Never Smoker Alcohol Use: occasionally Drug Use: none Marital Status: in relationship Housing Status: lives with family Occupation Status: employed Current/Historical Medications Scheduled Metoprolol Tartrate (Lopressor), 25 MG PO BID Allergies Coded Allergies: Dicyclomine (Verified Allergy, Intermediate, hives, extremity swelling, ) po Bentyl given in ER pt had reaction with in 30 mins with hives, swelling Physical Exam Vital Signs Date Time Temp Pulse Resp B/P (MAP) Pulse Ox O2 Delivery O2 Flow Rate FiO2 01/21/17 00:03 85 18 108/66 98 01/20/17 23:04 87 17 109/70 100 Room Air 01/20/17 20:54 92 20 108/66 100 Room Air 01/20/17 19:52 Room Air 01/20/17 19:50 90 01/20/17 19:17 36.6 116 22 121/73 100 Room Air Physical Exam GENERAL: Patient is awake, alert, and in no acute distress. Patient is resting comfortably and showing no signs of anxiety EYES: The conjunctivae are clear. The pupils are round and reactive. EARS, NOSE, MOUTH AND THROAT: The nose is without any evidence of any deformity. Mucous membranes are moist tongue is midline NECK: The neck is nontender and supple. RESPIRATORY: Normal respiratory effort is noted there is no evidence of wheezing rhonchi or rales CARDIOVASCULAR: Regular rate and rhythm noted there no murmurs rubs or gallops normal S1 normal S2 GASTROINTESTINAL: The abdomen is soft. Bowel sounds are present in all quadrants. Abdomen is nontender BACK: No midline tenderness or or step-off noted range of motion in flexion extension as well as rotation no signs of muscle spasm noted MUSCULOSKELETAL/EXTREMITIES: There is no evidence of gross deformity full range of motion is noted in the hips and shoulders SKIN: There is no obvious evidence of any rash. There are no petechiae, pallor or cyanosis noted. NEUROLOGIC: Patient is awake alert and oriented x3 strength is symmetric patellar reflexes are 2+ bilaterally Medical Decision & Procedures ER Provider Diagnostic Interpretation: Radiology results as stated below per my review and radiologist interpretation: CHEST ONE VIEW PORTABLE CLINICAL HISTORY: 31 years-old Female presenting with ABDOMINAL PAIN/GI. TECHNIQUE: Portable upright AP view of the chest was obtained. COMPARISON: 01/15/2017. FINDINGS: Cardiomediastinal silhouette normal. Lungs and pleural spaces clear. Osseous structures normal. Upper abdomen normal. IMPRESSION: 1. No acute cardiopulmonary disease. Electronically signed by: Delmar Pepe M.D. 01/20/2017 7:47 PM Dictated Date/Time: 01/20/2017 7:47 PM (CHEST FOR PE) ANGIO WITH CLINICAL HISTORY: 31 years-old Female presenting with shortness of breath. TECHNIQUE: Multidetector CT angiography of the chest was performed after administration of intravenous contrast. 3-D volumetric and/or maximum intensity projection (MIP) images were subsequently reconstructed for review. IV contrast: 104 mL of Optiray 320. A dose lowering technique was used consistent with the principles of ALARA (as low as reasonably achievable). COMPARISON: 05/27/2015. CT DOSE (mGy.cm): The estimated cumulative dose is 217.60 mGy.cm. FINDINGS: Equipment Superintendent topogram: Unremarkable. Pulmonary vasculature: The study is adequate for assessment of the pulmonary vascular tree. No filling defect within the pulmonary arteries to suggest embolus. Main pulmonary artery is not enlarged. No flattening of the interventricular septum. No intracardiac intracardiac filling defect. No reflux of contrast into the hepatic veins. Remaining chest: On soft tissue windows, normal thyroid and thoracic inlet. No axillary, supraclavicular, hilar, or mediastinal lymphadenopathy. Normal aorta. Normal heart size. No pericardial or pleural effusion. Upper abdomen normal. On lung windows, no focal infiltrate or nodule. Airways patent. On bone windows, normal osseous structures. IMPRESSION: 1. No evidence of pulmonary embolus. No acute intrathoracic pathology. Electronically signed by: Delmar Pepe M.D. 01/20/2017 8:46 PM Dictated Date/Time: 01/20/2017 8:41 PM Laboratory Results 01/20/17 19:45 Red Blood Count 4.98, Mean Corpuscular Volume 81.7, Mean Corpuscular Hemoglobin 27.7, Mean Corpuscular Hemoglobin Concent 33.9, Mean Platelet Volume 9.3, Neutrophils (%) (Auto) 60.8, Lymphocytes (%) (Auto) 18.7, Monocytes (%) (Auto) 12.6, Eosinophils (%) (Auto) 7.5, Basophils (%) (Auto) 0.1, Neutrophils # (Auto ) 4.81, Lymphocytes # (Auto) 1.48, Monocytes # (Auto) 1.00, Eosinophils # (Auto ) 0.59, Basophils # (Auto) 0.01 01/20/17 19:45 Test 01/20/17 19:45 01/20/17 19:49 White Blood Count 7.91 K/uL (4.8-10.8) Red Blood Count 4.98 M/uL (4.2-5.4) Hemoglobin 13.8 g/dL (12.0-16.0) Hematocrit 40.7 % (37-47) Mean Corpuscular Volume 81.7 fL (80-100) Mean Corpuscular Hemoglobin 27.7 pg (25-34) Mean Corpuscular Hemoglobin Concent 33.9 g/dl (32-36) Platelet Count 253 K/uL (130-400) Mean Platelet Volume 9.3 fL (7.4-10.4) Neutrophils (%) (Auto) 60.8 % Lymphocytes (%) (Auto) 18.7 % Monocytes (%) (Auto) 12.6 % Eosinophils (%) (Auto) 7.5 % Basophils (%) (Auto) 0.1 % Neutrophils # (Auto) 4.81 K/uL (1.4-6.5) Lymphocytes # (Auto) 1.48 K/uL (1.2-3.4) Monocytes # (Auto) 1.00 K/uL (0.11-0.59) Eosinophils # (Auto) 0.59 K/uL (0-0.5) Basophils # (Auto) 0.01 K/uL (0-0.2) RDW Standard Deviation 38.0 fL (36.4-46.3) RDW Coefficient of Variation 12.7 % (11.5-14.5) Immature Granulocyte % (Auto) 0.3 % Immature Granulocyte # (Auto) 0.02 K/uL (0.00-0.02) Prothrombin Time 11.7 SECONDS (9.0-12.0) Prothromb Time International Ratio 1.1 (0.9-1.1) Activated Partial Thromboplast Time 31.0 SECONDS (21.0-31.0) Partial Thromboplastin Ratio 1.2 Urine Color RED Urine Appearance CLOUDY (CLEAR) Urine pH 6.5 (4.5-7.5) Urine Specific Lovejoy >= 1.030 (1.000-1.030) Urine Protein 2+ (NEG) Urine Glucose (UA) NEG (NEG) Urine Ketones 3+ (NEG) Urine Occult Blood 3+ (NEG) Urine Nitrite NEG (NEG) Urine Bilirubin NEG (NEG) Urine Urobilinogen NEG (NEG) Urine Leukocyte Esterase NEG (NEG) Urine RBC >30 /hpf (0-4) Urine WBC 10-30 /hpf (0-5) Urine Epithelial Cells 10-20 /lpf (0-5) Urine Bacteria NEG (NEG) Urine Hyaline Casts 0 /lpf (0-5) Anion Gap 9.0 mmol/L (3-11) Est Creatinine Clear Calc Drug Dose 89.0 ml/min Estimated GFR () 108.9 Estimated GFR (Non- 93.9 BUN/Creatinine Ratio 16.8 (10-20) Calcium Level 8.4 mg/dl (8.5-10.1) Magnesium Level 1.8 mg/dl (1.8-2.4) Total Bilirubin 0.5 mg/dl (0.2-1) Direct Bilirubin 0.1 mg/dl (0-0.2) Aspartate Amino Transf (AST/SGOT) 19 U/L (15-37) Alanine Aminotransferase (ALT/SGPT) 15 U/L (12-78) Alkaline Phosphatase 83 U/L (45-117) Total Creatine Kinase 34 U/L (26-192) Creatine Kinase MB < 0.5 ng/ml (0.5-3.6) Creatine Kinase MB Ratio (0-3.0) Troponin I < 0.015 ng/ml (0-0.045) Total Protein 7.8 gm/dl (6.4-8.2) Albumin 3.7 gm/dl (3.4-5.0) Lipase 105 U/L (73-393) Thyroid Stimulating Hormone (TSH) 2.060 uIu/ml (0.300-4.500) Human Chorionic Gonadotropin, Qual NEG (NEG) Bedside D-Dimer > 450 ng/mlFEU (0-450) Date/Time Source Procedure Growth Status 01/20/17 21:50 Stool C.difficile Toxin B Gene (PCR) - Final No C. difficile toxin B gene detected Complete Laboratory results per my review. Medications Administered Medications (Trade) Dose Ordered Sig/Anthony Route Start Time Stop Time Status Last Admin Dose Admin Sodium Chloride 1,000 ml @ 999 mls/hr Q1H1M STAT IV 01/20/17 19:25 01/20/17 20:25 DC 01/20/17 19:45 999 MLS/HR Ondansetron HCl (Zofran Inj) 4 mg NOW STAT IV 01/20/17 19:25 01/20/17 19:28 DC 01/20/17 19:45 4 MG Sodium Chloride 1,000 ml @ 999 mls/hr Q1H1M STAT IV 01/20/17 20:55 01/20/17 21:55 DC 01/20/17 21:00 999 MLS/HR Ondansetron HCl (Zofran Inj) 4 mg NOW STAT IV 01/20/17 21:07 01/20/17 21:08 DC 01/20/17 21:10 4 MG Oxycodone HCl (Roxicodone Immediate Rel Tab) 5 mg NOW STAT PO 01/20/17 22:21 01/20/17 22:22 DC 01/20/17 22:28 5 MG Metoprolol Tartrate (Lopressor Tab) 25 mg NOW STAT PO 01/20/17 23:06 01/20/17 23:07 DC 01/20/17 23:11 25 MG ECG Indication: SOB/dyspnea Rate (beats per minute): 84 Rhythm: normal sinus Findings: no ectopy, other (No acute STS abnormalities) Comparison ECG Date: no prior available (15 Jan 2017) Change: no significant change ED Course 1918: The patient was evaluated in room C4. A complete history and physical examination were performed. 1924: Zofran Inj 4 mg IV, NSS 1,000 ml @ 999 mls/hr IV 2054: Ordered NSS 1,000 ml @ 999 mls/hr IV 2106: Ordered Zofran Inj 4 mg IV 2220: Ordered Oxycodone HCl 5 mg PO 2306: Ordered Lopressor Tab 25 mg PO 0000: Upon reevaluation, the patient is resting. I discussed the results and treatment plan with her. She verbalized agreement of the treatment plan. She was discharged home. Medical Decision Differential diagnosis: Etiologies such as premature contractions, electrolyte abnormality, cardiac dysrhythmia, thyroid dysfunction, pulmonary embolism, infection, gastrointestinal, as well as others were entertained. Nursing notes reviewed. The patient's previous electronic medical records reviewed. The patient is a 31-year-old female who presented to the emergency department for evaluation of palpitations. The patient has had a recent GI illness included nausea and diarrhea. She was treated recently for dehydration. She states that her symptoms felt better but she return to emergency department today for palpitations and shortness of breath. The patient was treated with IV fluids in the emergency department. On subsequent reevaluation she was somewhat improved. I discussed the patient's laboratory and radiographic studies with her. She was encouraged to rest and avoid any strenuous activity. She was also encouraged to continue all medications as prescribed and drink plenty clear liquids. She was also encouraged return to the emergency department immediately if symptoms change worsen or the need arises. Medication Reconcilliation Current Medication List: was personally reviewed by me Blood Pressure Screening Patient's blood pressure: Normal blood pressure Blood pressure disposition: Did not require urgent referral Impression Primary Impression: Dehydration Additional Impressions: SOB (shortness of breath) Palpitations Scribe Attestation The scribe's documentation has been prepared under my direction and personally reviewed by me in its entirety. I confirm that the note above accurately reflects all work, treatment, procedures, and medical decision making performed by me. Departure Information Dispostion Home / Self-Care Referrals RV. Butts MD (PCP) Forms HOME CARE DOCUMENTATION FORM, IMPORTANT VISIT INFORMATION Patient Instructions Dehydration, My [facility] Additional Instructions Call your family to schedule a follow-up appointment. Drink plenty clear liquids. Rest and avoid any strenuous activity. Problem Qualifiers
--- NOTE | 2017-01-20 19:48 | DIAGNOSTIC IMAGING REPORT ---
CHEST ONE VIEW PORTABLE CLINICAL HISTORY: 31 years-old Female presenting with ABDOMINAL PAIN/GI. TECHNIQUE: Portable upright AP view of the chest was obtained. COMPARISON: 01/15/2017. FINDINGS: Cardiomediastinal silhouette normal. Lungs and pleural spaces clear. Osseous structures normal. Upper abdomen normal. IMPRESSION: 1. No acute cardiopulmonary disease. Electronically signed by: Delmar Pepe M.D. 01/20/2017 7:47 PM Dictated Date/Time: 01/20/2017 7:47 PM
[2017-01-20 19:58] LABS: BASO % 0.1 %; BASO ABS # 0.01 K/uL (0-0.2); COMPLETE YES; EOS % 7.5 %; HEMATOCRIT 40.7 % (37-47); IG% 0.3 %; LYMPH % 18.7 %; LYMPH ABS # 1.48 K/uL (1.2-3.4); MEAN CELL VOLUME 81.7 fL (80-100); MEAN CORPUSCULAR HEMOGLOBIN 27.7 pg (25-34); MEAN CORPUSCULAR HGB CONC 33.9 g/dl (32-36); MEAN PLATELET VOLUME 9.3 fL (7.4-10.4); MONO % 12.6 %; NEUT % 60.8 %; PLATELET COUNT 253 K/uL (130-400); RED BLOOD COUNT 4.98 M/uL (4.2-5.4); WHITE BLOOD COUNT 7.91 K/uL (4.8-10.8)
[2017-01-20 20:06] LABS: MANUAL MICROSCOPIC REQUIRED? YES; URINE APPEARANCE CLOUDY (CLEAR); URINE COLOR RED; URINE NITRITE NEG (NEG); URINE PH 6.5 (4.5-7.5); URINE SPECIFIC GRAVITY >= 1.030 (1.000-1.030); UROBILINOGEN NEG (NEG)
[2017-01-20 20:07] LABS: INR 1.1 (0.9-1.1); PARTIAL THROMBOPLASTIN RATIO 1.2; PROTHROMBIN TIME (PATIENT) 11.7 SECONDS (9.0-12.0)
[2017-01-20 20:11] LABS: REVIEW REQ? NO
[2017-01-20 20:12] LABS: URINE BILIRUBIN NEG (NEG)
[2017-01-20 20:17] LABS: ALT/SGPT 15 U/L (12-78); BLOOD UREA NITROGEN 14 mg/dl (7-18); BUN/CREATININE RATIO 16.8 (10-20); CALCIUM 8.4 mg/dl (8.5-10.1); CARBON DIOXIDE 19 mmol/L (21-32); CHLORIDE 109 mmol/L (98-107); CREATININE 0.84 mg/dl (0.60-1.20); GLUCOSE 90 mg/dl (70-99); MAGNESIUM 1.8 mg/dl (1.8-2.4); SODIUM 137 mmol/L (136-145)
[2017-01-20 20:18] LABS: URINE BACTERIA NEG (NEG); URINE RBC >30 /hpf (0-4)
[2017-01-20 20:20] LABS: URINE HYALINE CAST 0 /lpf (0-5)
[2017-01-20 20:28] LABS: ALKALINE PHOSPHATASE 83 U/L (45-117); AST/SGOT 19 U/L (15-37)
[2017-01-20 20:29] LABS: POTASSIUM 3.3 mmol/L (3.5-5.1)
[2017-01-20 20:37] LABS: PREG INTERNAL NEGATIVE QC NEG CLEAR BACKGROUND; PREG INTERNAL POSITIVE QC POS CONTROL LINE
[2017-01-20] MEDS ORDERED: OPTIRAY 320 IV PRN (20:45)
--- NOTE | 2017-01-20 20:47 | DIAGNOSTIC IMAGING REPORT ---
(CHEST FOR PE) ANGIO WITH CLINICAL HISTORY: 31 years-old Female presenting with shortness of breath. TECHNIQUE: Multidetector CT angiography of the chest was performed after administration of intravenous contrast. 3-D volumetric and/or maximum intensity projection (MIP) images were subsequently reconstructed for review. IV contrast: 104 mL of Optiray 320. A dose lowering technique was used consistent with the principles of ALARA (as low as reasonably achievable). COMPARISON: 05/27/2015. CT DOSE (mGy.cm): The estimated cumulative dose is 217.60 mGy.cm. FINDINGS: Cash Poster topogram: Unremarkable. Pulmonary vasculature: The study is adequate for assessment of the pulmonary vascular tree. No filling defect within the pulmonary arteries to suggest embolus. Main pulmonary artery is not enlarged. No flattening of the interventricular septum. No intracardiac intracardiac filling defect. No reflux of contrast into the hepatic veins. Remaining chest: On soft tissue windows, normal thyroid and thoracic inlet. No axillary, supraclavicular, hilar, or mediastinal lymphadenopathy. Normal aorta. Normal heart size. No pericardial or pleural effusion. Upper abdomen normal. On lung windows, no focal infiltrate or nodule. Airways patent. On bone windows, normal osseous structures. IMPRESSION: 1. No evidence of pulmonary embolus. No acute intrathoracic pathology. Electronically signed by: Delmar Pepe M.D. 01/20/2017 8:46 PM Dictated Date/Time: 01/20/2017 8:41 PM
[2017-01-20] MEDS ORDERED: OXYCODONE HCL IR 5 MG TAB (IMMEDIATE RELEASE) PO STA (22:21)
[2017-01-20] MEDS ORDERED: METOPROLOL TARTRATE 50 MG TAB PO STA (23:06)
[2017-01-21 00:03] VITALS: BP 108/66; PULSE 85; O2SAT 98
[2017-01-22] MEDS ORDERED: ONDA4TAB10 SL (22:32)
[2017-01-22] MEDS ORDERED: METR500T PO (22:32)
[2017-01-22] MEDS ORDERED: CIPR-255 PO (22:32)
== END 2017-01-21 00:05 | disposition home or self-care (01) ==
LOC: C.EDB 19:14 → C.EDC 01-21 00:05
DX: E86.0 Dehydration (principal); R06.02 Shortness of breath; R00.2 Palpitations; R07.9 Chest pain, unspecified; R11.0 Nausea; R19.7 Diarrhea, unspecified; F41.9 Anxiety disorder, unspecified; Z79.899 Other long term (current) drug therapy; Z86.79 Personal history of other diseases of the circulatory system; Z87.440 Personal history of urinary (tract) infections; Z82.49 Family history of ischemic heart disease and other diseases of the circulatory system; Z83.3 Family history of diabetes mellitus; Z83.6 Family history of other diseases of the respiratory system

== ENCOUNTER 2017-01-22 18:24 | Emergency (ER) | payer BC, OTHER ==
[~2017-01-22] VITALS: Ht 157.5 cm; Wt 66.2 kg
[~2017-01-22 18:24] MED LIST changes: -ONDA4TAB10 SL
[2017-01-22 18:33] VITALS: Ht 157.5 cm; Wt 66.2 kg
[2017-01-22] MEDS ORDERED: SODIUM CHLORIDE 0.9% 1000ML 1,000 ML IV STA ×2 (19:11→21:20)
[2017-01-22] MEDS ORDERED: ONDANSETRON INJ 2 MG/ML 2 ML VIAL IV STA ×2 (19:11→22:01)
[2017-01-22] MEDS ORDERED: OPTIRAY 320 IV PRN (19:45)
--- NOTE | 2017-01-22 19:49 | EMERGENCY ROOM VISIT NOTE ---
History Report prepared by Sairaibabelardo: Abelino Brunson Under the Supervision of: Dr. Martin Mckeon M.D. First contact with patient: 18:59 Chief Complaint: TACHYCARDIA Stated Complaint: HEART RACING, SHORTNESS OF BREATH, STOMACH PAIN Nursing Triage Summary: Pt states feels like her heart is racing, has been sick and started with a fever today, has been here 4 times in the last week. Pt a/ox3, lungs CTA, abd soft positive BS, states she has diarrhea, and not drinking enough fluids, positive BS, positive pulses. History of Present Illness The patient is a 31 year old white female with a past medical history of SVT, NVP, 3 C-sections who presents to the ED with a cc of constant tachycardia beginning three days ago. She rates her discomfort as an 8/10 in severity. The patient states that she has been experiencing nausea and diarrhea starting 5 days ago. She reports that starting 3 days ago she started to experience tachycardia. The patient states that she has had a headache everyday that is unaffected by Tylenol and Ibuprofen. She reports that she checked her heart rate today, which was 118. The patient also reports a fever of 101. She reports that she has been experiencing normal bowel movements and urination. The patient admits that she is currently on her menstrual period. She states that she has been here 4 times in one week. Positive abdominal pain, nausea, diarrhea , headache, fever. Negative alcohol, drug, tobacco use, sore throat, cough, sick contact, recent travel. Source of History: patient Onset: three days ago Position: other (global) Symptom Intensity: 8/10 Quality: other (118) Timing: constant Associated Symptoms: + fevers, + headache, + nausea, + abdominal pain, + diarrhea, No sorethroat, No cough Review of Systems See HPI for pertinent positives and negatives. A total of ten systems were reviewed and were otherwise negative. Past Medical & Surgical Medical Problems: (1) Anxiety (2) section (3) ECOLI UTI (4) Fever (5) Mitral valve prolapse (6) with viral (7) with viral (8) Supraventricular tachycardia (9) Tachycardia (10) Viral disease affecting in third trimester, antepartum Family History Cancer Diabetes mellitus Heart disease Hypertension Lung disease Social History Smoking Status: Never Smoker Alcohol Use: occasionally Drug Use: none Marital Status: in relationship Housing Status: lives with family Occupation Status: employed Current/Historical Medications Scheduled Ciprofloxacin Hcl (Cipro), 500 MG PO BID Metoprolol Tartrate (Lopressor), 25 MG PO BID Metronidazole (Flagyl), 500 MG PO TID Ondasetron Odt (Zofran Odt), 4 MG SL Q6H Allergies Coded Allergies: Dicyclomine (Verified Allergy, Intermediate, hives, extremity swelling, ) po Bentyl given in ER pt had reaction with in 30 mins with hives, swelling Physical Exam Vital Signs Date Time Temp Pulse Resp B/P (MAP) Pulse Ox O2 Delivery O2 Flow Rate FiO2 01/22/17 23:13 36.6 105 18 119/70 100 Room Air 01/22/17 21:43 102 18 117/77 100 Room Air 01/22/17 20:38 104 18 113/75 100 Room Air 01/22/17 20:11 100 Room Air 01/22/17 19:25 107 01/22/17 18:49 Room Air 01/22/17 18:33 36.8 130 18 114/74 100 Room Air Physical Exam GENERAL: Awake, alert, well-appearing, NAD HENT: Normocephalic, atraumatic. EYES: Normal conjunctiva. Sclera non-icteric. NECK: Supple. No nuchal rigidity. FROM. RESPIRATORY: CTAB, no rhonchi, wheezing, crackles CARDIAC: tachycardic but regular no MRG ABDOMEN: Soft, ND, BS+, mild diffuse nonspecific tenderness to palpation. Negative obturator's and psoae's sign. MSK: No chest wall TTP, no LE edema, no erythema or calor. NEURO: GCS 15, CN 2-12 intact, moves all 4s on command SKIN: No rash or jaundice noted. Medical Decision & Procedures ER Provider Diagnostic Interpretation: Radiology results as stated below per my review and radiologist interpretation CT OF THE ABDOMEN AND PELVIS WITH CONTRAST CLINICAL HISTORY: Diffuse abdominal pain. COMPARISON STUDY: CT of the abdomen and pelvis September 24, 2015 and right upper quadrant ultrasound January 19, 2017. TECHNIQUE: Following IV administration of 92 mL of Optiray-320, axial images of the abdomen and pelvis were obtained from the lung bases to the proximal femurs. Images were reviewed in the axial, sagittal, and coronal planes. IV contrast was administered without complication. A dose lowering technique was utilized adhering to the principles of ALARA. CT DOSE: 317.52 mGy.cm FINDINGS: The liver, adrenal glands, kidneys and pancreas are unremarkable. There is no biliary or pancreatic ductal dilatation. No hydronephrosis is present. Mild splenomegaly is noted. This similar to previous exam. There is no evidence for a bowel obstruction. The appendix is normal. The colon and small bowel are fluid filled. There are multiple mildly enlarged mesenteric lymph nodes. An index mesenteric node shown on image 210 of 466 measures 1.8 x 1.2 cm. This lymphadenopathy was not present on exam of September 24, 2015. There is no pneumatosis, free air or portal venous gas. Trace fluid within the pelvis is noted. No significant bowel wall thickening is present. No suspicious skeletal lesions are identified. IMPRESSION: 1. Fluid-filled small and large bowel. No bowel obstruction. The findings may reflect an enterocolitis with diarrheal state. Trace fluid within the pelvis. 2. Normal appendix. 3. Mild mesenteric lymphadenopathy. This is likely reactive however a follow-up CT in 3 months is recommended to ensure resolution and exclude the less likely possibility of a lymphoproliferative process. 4. Mild splenomegaly, similar to prior exam. Electronically signed by: Magno Romo M.D. 01/22/2017 9:13 PM Dictated Date/Time: 01/22/2017 9:02 PM Laboratory Results 01/22/17 19:30 Red Blood Count 4.75, Mean Corpuscular Volume 82.3, Mean Corpuscular Hemoglobin 28.0, Mean Corpuscular Hemoglobin Concent 34.0, Mean Platelet Volume 9.3, Neutrophils (%) (Auto) 46.9, Lymphocytes (%) (Auto) 31.8, Monocytes (%) (Auto) 14.5, Eosinophils (%) (Auto) 5.2, Basophils (%) (Auto) 1.2, Neutrophils # (Auto ) 2.36, Lymphocytes # (Auto) 1.60, Monocytes # (Auto) 0.73, Eosinophils # (Auto ) 0.26, Basophils # (Auto) 0.06 01/22/17 19:30 Test 01/22/17 19:30 01/22/17 20:45 01/22/17 21:00 01/22/17 21:35 White Blood Count 5.03 K/uL (4.8-10.8) Red Blood Count 4.75 M/uL (4.2-5.4) Hemoglobin 13.3 g/dL (12.0-16.0) Hematocrit 39.1 % (37-47) Mean Corpuscular Volume 82.3 fL (80-100) Mean Corpuscular Hemoglobin 28.0 pg (25-34) Mean Corpuscular Hemoglobin Concent 34.0 g/dl (32-36) Platelet Count 244 K/uL (130-400) Mean Platelet Volume 9.3 fL (7.4-10.4) Neutrophils (%) (Auto) 46.9 % Lymphocytes (%) (Auto) 31.8 % Monocytes (%) (Auto) 14.5 % Eosinophils (%) (Auto) 5.2 % Basophils (%) (Auto) 1.2 % Neutrophils # (Auto) 2.36 K/uL (1.4-6.5) Lymphocytes # (Auto) 1.60 K/uL (1.2-3.4) Monocytes # (Auto) 0.73 K/uL (0.11-0.59) Eosinophils # (Auto) 0.26 K/uL (0-0.5) Basophils # (Auto) 0.06 K/uL (0-0.2) RDW Standard Deviation 39.8 fL (36.4-46.3) RDW Coefficient of Variation 13.1 % (11.5-14.5) Immature Granulocyte % (Auto) 0.4 % Immature Granulocyte # (Auto) 0.02 K/uL (0.00-0.02) Prothrombin Time 11.7 SECONDS (9.0-12.0) Prothromb Time International Ratio 1.1 (0.9-1.1) Activated Partial Thromboplast Time 28.5 SECONDS (21.0-31.0) Partial Thromboplastin Ratio 1.1 Est Creatinine Clear Calc Drug Dose 96.2 ml/min Estimated GFR () 120.9 Estimated GFR (Non- 104.3 BUN/Creatinine Ratio 6.6 (10-20) Calcium Level 8.5 mg/dl (8.5-10.1) Magnesium Level 1.8 mg/dl (1.8-2.4) Total Bilirubin 0.3 mg/dl (0.2-1) Direct Bilirubin < 0.1 mg/dl (0-0.2) Aspartate Amino Transf (AST/SGOT) 24 U/L (15-37) Alanine Aminotransferase (ALT/SGPT) 19 U/L (12-78) Alkaline Phosphatase 70 U/L (45-117) Total Protein 7.5 gm/dl (6.4-8.2) Albumin 3.4 gm/dl (3.4-5.0) Lipase 139 U/L (73-393) Thyroid Stimulating Hormone (TSH) 1.070 uIu/ml (0.300-4.500) Bedside Hemoglobin 12.9 g/dl (12.0-16.0) Bedside Hematocrit 38 % (37-47) Bedside Sodium 140 mEq/L (135-144) Bedside Potassium 3.2 mEq/L (3.3-5.0) Bedside Chloride 109 mEq/L (101-112) Bedside Total CO2 15 mEq/l (24-31) Anion Gap 20.0 mmol/L (16-25) Bedside Blood Urea Nitrogen 4 mg/dl (7-18) Bedside Creatinine 0.7 mg/dl (0.6-1.3) Bedside Glucose (other) 60 mg/dl (70-99) Bedside Ionized Calcium (Serina) 1.22 mmol/l (1.12-1.32) Urine Color YELLOW Urine Appearance CLEAR (CLEAR) Urine pH 6.0 (4.5-7.5) Urine Specific [place] > 1.045 (1.000-1.030) Urine Protein 1+ (NEG) Urine Glucose (UA) NEG (NEG) Urine Ketones 4+ (NEG) Urine Occult Blood 3+ (NEG) Urine Nitrite NEG (NEG) Urine Bilirubin NEG (NEG) Urine Urobilinogen NEG (NEG) Urine Leukocyte Esterase NEG (NEG) Urine WBC (Auto) 1-5 /hpf (0-5) Urine RBC (Auto) >30 /hpf (0-4) Urine Hyaline Casts (Auto) 0 /lpf (0-5) Urine Epithelial Cells (Auto) >30 /lpf (0-5) Urine Bacteria (Auto) NEG (NEG) Venous Blood pH 7.23 (7.36-7.41) Venous Blood Partial Pressure CO2 34 mmHg (38.0-50.0) Venous Blood Partial Pressure O2 25 mmHg Venous Blood HCO3 14 mmol/L Venous Blood Oxygen Saturation < 60.0 % Venous Blood Base Excess -12.8 mEq/L Lactic Acid Level 1.2 mmol/L (0.4-2.0) Test 01/22/17 22:22 Laboratory results reviewed by me Medications Administered Medications (Trade) Dose Ordered Sig/Anthony Route Start Time Stop Time Status Last Admin Dose Admin Sodium Chloride 1,000 ml @ 999 mls/hr Q1H1M STAT IV 01/22/17 19:11 01/22/17 20:11 DC 01/22/17 19:11 999 MLS/HR Ondansetron HCl (Zofran Inj) 4 mg NOW STAT IV 01/22/17 19:11 01/22/17 19:12 DC 01/22/17 20:40 4 MG Ciprofloxacin (Cipro Tab) 500 mg NOW STAT PO 01/22/17 21:19 01/22/17 21:21 DC 01/22/17 21:33 500 MG Metronidazole (Flagyl Tab) 500 mg NOW STAT PO 01/22/17 21:19 01/22/17 21:21 DC 01/22/17 21:34 500 MG Sodium Chloride 1,000 ml @ 999 mls/hr Q1H1M STAT IV 01/22/17 21:20 01/22/17 22:20 DC 01/22/17 21:37 999 MLS/HR Magnesium Oxide (Mag-Ox Tab) 800 mg QAM STAT PO 01/22/17 21:21 01/22/17 21:22 DC 01/22/17 21:35 800 MG Potassium Chloride (Klor-Con M10) 40 meq NOW STAT PO 01/22/17 21:21 01/22/17 21:22 DC 01/22/17 21:34 40 MEQ Morphine Sulfate (MoRPHine SULFATE INJ) 4 mg NOW STAT IV 01/22/17 22:01 01/22/17 22:07 DC 01/22/17 22:23 4 MG Ondansetron HCl (Zofran Inj) 4 mg NOW STAT IV 01/22/17 22:01 01/22/17 22:07 DC 01/22/17 22:22 4 MG ECG Indication: tachycardia Rate (beats per minute): 106 Rhythm: sinus tachycardia Findings: other (Normal axis and intervals. T wave flattening inferiorly. No other ST changes or TWI.) ED Course 1917: The patient was evaluated in room C03. A complete history and physical exam was performed. 2234: I reevaluated the patient. Discussed results and discharge instructions: She verbalized understanding and agreement. The patient is ready for discharge. Medical Decision Differential diagnosis: Etiologies such as appendicitis, diverticulitis, PUD, biliary pathology, UTI, pancreatitis, obstruction, mesenteric ischemia, aortic pathology, infections, inflammatory bowel disease, renal colic, as well as others were entertained. Patient was seen and evaluated at the bedside. Patient did have blood work, urine, and CT the abdomen pelvis completed. Patient said multiple visits within last 5 days. Patient has had a recent CTA of the chest without any noted PE. Patient complains more of infectious symptoms with diarrhea. Patient does complain of some mild diffuse abdominal pain. Patient's blood work was notable for a bicarbonate of 14 which isn't limited downtrending since her last 3 visits. Patient did have a VBG lactate completed. Patient's pH was greater than 7.2 with a PCO2 in the 30s. Patient likely has just slightly under the appropriate respiratory compensation for her metabolic acidosis. Patient did have a lactate that was completed which is less than 2. Patient did have ketones in the urine. Patient has not been eating very much. Patient' s CT was consistent with some mild enterocolitis. Patient was given antibiotics given her severity of symptoms. Patient's pain had improved. Patient had been taking some Motrin and Tylenol but had not been taking any salicylates. Given the patient's mild anion gap of 16 with a low bicarbonate patient is had a sugar greater than 60. She is not uremic. Patient has not been drinking alcohol. Patient does not have an elevated lactate. Patient is not on iron supplements. Given the patient's symptomatology she may have a concomitant diarrheal illness combined with starvation ketosis. Patient was able tolerate by mouth here. Patient was informed of all findings and told to stick with clear liquids with calories and consulted reintroduce items back into her diet. Patient agreed with plan of care patient was safely discharged home. Medication Reconcilliation Current Medication List: was personally reviewed by me Blood Pressure Screening Patient's blood pressure: Normal blood pressure Impression Primary Impression: Abdominal pain Additional Impressions: Enterocolitis Dehydration Starvation ketoacidosis Scribe Attestation The scribe's documentation has been prepared under my direction and personally reviewed by me in its entirety. I confirm that the note above accurately reflects all work, treatment, procedures, and medical decision making performed by me. Departure Information Dispostion Home / Self-Care Prescriptions Ondasetron Odt (ZOFRAN ODT) 4 Mg Tab 4 MG SL Q6H for Nausea, #12 TAB Prov: Martin Mckeon M.D. 01/22/17 Metronidazole (FLAGYL) 500 Mg Tab 500 MG PO TID for 7 Days, #21 TAB Prov: Martin Mckeon M.D. 01/22/17 Ciprofloxacin Hcl (CIPRO) 500 Mg Tab 500 MG PO BID, #14 TAB Prov: Martin Mckeon M.D. 01/22/17 Referrals RV. Butts MD (PCP) Patient Instructions ED Gastritis, My [facility] Additional Instructions Please return to the emergency department if you have worsening or recurrent symptoms not amenable to at-home treatment. Please call for a follow-up appointment with her primary care physician. Please take your medications as prescribed. If you have other concerns and/or complaints please feel free to also call your primary care physician's office or return the ED for further evaluation, management, and treatment. You were found to have an elevated blood pressure today (>120 sytolic or >90 diastolic). Per medicare guidelines, you need to follow up with this blood pressure screening with your Primary Care Physician (PCP). For a new PCP call [phone]. You received narcotic or benzodiazepene medication while in the emergency room today. This is an addictive medication that may cause drowziness as well as constipation. Do not drive, operate heavy machinery, or drink alcohol under the influence of this medication. You may take 600 mg Ibuprofen every 6 hours as needed for pain with food for no more than 2 consecutive days. You may take tylenol 1000 mg every 6 hours as needed for pain. You may take motrin and tylenol separately or at the same time. Take your antibiotics as prescribed. Please avoid alcohol while taking these. You may take zofran for nausea. Consider clear liquid diet and slowly advance as your are able. You have been examined and treated today on an emergency basis only. This is not a substitute for, or an effort to provide, complete comprehensive medical care. It is impossible to recognize and treat all injuries or illnesses in a single emergency department visit. It is therefore important that you follow up closely with [facility]. Call as soon as possible for an appointment. Thank you for your time and consideration. I look forward to speaking with you again soon. Please don't hesitate to call us if you have any questions. Problem Qualifiers Primary Impression: Abdominal pain Abdominal location: generalized Qualified Codes: R10.84 - Generalized abdominal pain
[2017-01-22 20:02] LABS: BASO % 1.2 %; BASO ABS # 0.06 K/uL (0-0.2); COMPLETE YES; EOS % 5.2 %; HEMATOCRIT 39.1 % (37-47); IG% 0.4 %; LYMPH % 31.8 %; MEAN CELL VOLUME 82.3 fL (80-100); MEAN PLATELET VOLUME 9.3 fL (7.4-10.4); MONO % 14.5 %; NEUT % 46.9 %; PLATELET COUNT 244 K/uL (130-400); RED BLOOD COUNT 4.75 M/uL (4.2-5.4); WHITE BLOOD COUNT 5.03 K/uL (4.8-10.8)
[2017-01-22 20:11] VITALS: O2SAT 100
[2017-01-22 20:12] LABS: INR 1.1 (0.9-1.1); PARTIAL THROMBOPLASTIN RATIO 1.1; PROTHROMBIN TIME (PATIENT) 11.7 SECONDS (9.0-12.0)
[2017-01-22 20:31] LABS: CREATININE 0.77 mg/dl (0.60-1.20); GLUCOSE 61 mg/dl (70-99)
[2017-01-22 20:32] LABS: ALT/SGPT 19 U/L (12-78); BUN/CREATININE RATIO 6.6 (10-20); CALCIUM 8.5 mg/dl (8.5-10.1); CARBON DIOXIDE 14 mmol/L (21-32); CHLORIDE 110 mmol/L (98-107); MAGNESIUM 1.8 mg/dl (1.8-2.4); POTASSIUM 3.2 mmol/L (3.5-5.1); SODIUM 140 mmol/L (136-145)
[2017-01-22 20:45] LABS: ALKALINE PHOSPHATASE 70 U/L (45-117); AST/SGOT 24 U/L (15-37)
[2017-01-22 20:46] LABS: BLOOD UREA NITROGEN 5 mg/dl (7-18)
[2017-01-22 20:55] LABS: ISTAT CREATININE 0.7 mg/dl (0.6-1.3); ISTAT HEMOGLOBIN 12.9 g/dl (12.0-16.0); ISTAT IONIZED CALCIUM 1.22 mmol/l (1.12-1.32)
--- NOTE | 2017-01-22 21:15 | DIAGNOSTIC IMAGING REPORT ---
CT OF THE ABDOMEN AND PELVIS WITH CONTRAST CLINICAL HISTORY: Diffuse abdominal pain. COMPARISON STUDY: CT of the abdomen and pelvis September 24, 2015 and right upper quadrant ultrasound January 19, 2017. TECHNIQUE: Following IV administration of 92 mL of Optiray-320, axial images of the abdomen and pelvis were obtained from the lung bases to the proximal femurs. Images were reviewed in the axial, sagittal, and coronal planes. IV contrast was administered without complication. A dose lowering technique was utilized adhering to the principles of ALARA. CT DOSE: 317.52 mGy.cm FINDINGS: The liver, adrenal glands, kidneys and pancreas are unremarkable. There is no biliary or pancreatic ductal dilatation. No hydronephrosis is present. Mild splenomegaly is noted. This similar to previous exam. There is no evidence for a bowel obstruction. The appendix is normal. The colon and small bowel are fluid filled. There are multiple mildly enlarged mesenteric lymph nodes. An index mesenteric node shown on image 210 of 466 measures 1.8 x 1.2 cm. This lymphadenopathy was not present on exam of September 24, 2015. There is no pneumatosis, free air or portal venous gas. Trace fluid within the pelvis is noted. No significant bowel wall thickening is present. No suspicious skeletal lesions are identified. IMPRESSION: 1. Fluid-filled small and large bowel. No bowel obstruction. The findings may reflect an enterocolitis with diarrheal state. Trace fluid within the pelvis. 2. Normal appendix. 3. Mild mesenteric lymphadenopathy. This is likely reactive however a follow-up CT in 3 months is recommended to ensure resolution and exclude the less likely possibility of a lymphoproliferative process. 4. Mild splenomegaly, similar to prior exam. Electronically signed by: Magno Romo M.D. 01/22/2017 9:13 PM Dictated Date/Time: 01/22/2017 9:02 PM
[2017-01-22] MEDS ORDERED: METRONIDAZOLE 250 MG TAB PO STA (21:19)
[2017-01-22] MEDS ORDERED: CIPROFLOXACIN 500 MG TAB PO STA (21:19)
[2017-01-22] MEDS ORDERED: MAGNESIUM OXIDE 400 MG TAB PO STA (21:21)
[2017-01-22] MEDS ORDERED: POTASSIUM CHLORIDE 10 MEQ TABCR PO STA (21:21)
[2017-01-22 21:55] LABS: VEN BLOOD GAS BASE EXCESS -12.8 mEq/L; VENOUS BLOOD GAS PCO2 34 mmHg (38.0-50.0); VENOUS BLOOD GAS PO2 25 mmHg
[2017-01-22 21:56] LABS: VEN BLD GAS O2 SATURATION < 60.0 %
[2017-01-22] MEDS ORDERED: MoRPHine SULFATE 4 MG/ML 1 ML CARP\\VIAL IV STA (22:01)
[2017-01-22] MEDS ORDERED: CIPR-255 PO (22:32)
[2017-01-22] MEDS ORDERED: METR500T PO (22:32)
[2017-01-22] MEDS ORDERED: ONDA4TAB10 SL (22:32)
[2017-01-22 22:44] LABS: URINE APPEARANCE CLEAR (CLEAR); URINE BILIRUBIN NEG (NEG); URINE COLOR YELLOW; URINE EPITHELIAL CELL AUTO >30 /lpf (0-5); URINE NITRITE NEG (NEG); URINE SPECIFIC GRAVITY > 1.045 (1.000-1.030); UROBILINOGEN NEG (NEG)
[2017-01-22 22:45] LABS: MANUAL MICROSCOPIC REQUIRED? NO; REVIEW REQ? NO
[2017-01-22 23:13] VITALS: BP 119/70; PULSE 105; TEMP 36.6; O2SAT 100
[2017-01-24 19:14] LABS: O&P GIARDIA AG NOT DETECTED (NOT DETECTED)
== END 2017-01-22 23:26 | disposition home or self-care (01) ==
LOC: C.EDB 18:25 → C.EDC 23:26
DX: R10.84 Generalized abdominal pain (principal); K52.9 Noninfective gastroenteritis and colitis, unspecified; E86.0 Dehydration; E87.2 Acidosis; T73.0XXA Starvation, initial encounter; X58.XXXA Exposure to other specified factors, initial encounter; F41.9 Anxiety disorder, unspecified; I34.1 Nonrheumatic mitral (valve) prolapse; Z80.9 Family history of malignant neoplasm, unspecified; Z83.3 Family history of diabetes mellitus; Z82.49 Family history of ischemic heart disease and other diseases of the circulatory system; Z83.6 Family history of other diseases of the respiratory system

== ENCOUNTER 2017-05-20 03:15 | Emergency (ER) | payer OTHER ==
[~2017-05-20] VITALS: Ht 157.5 cm; Wt 70.0 kg
[~2017-05-20 03:15] MED LIST changes: +CIPR-255 PO; +ONDA4TAB10 SL
[2017-05-20] MEDS ORDERED: METHYLPREDNISOLONE 125 MG VIAL ONE (03:16)
[2017-05-20 03:18] VITALS: TEMP 36.1; Ht 157.5 cm; Wt 70.0 kg
[2017-05-20] MEDS ORDERED: FAMOTIDINE 20MG/102 ML D5W IV STA (03:39)
--- NOTE | 2017-05-20 04:05 | EMERGENCY ROOM VISIT NOTE ---
History First contact with patient: 03:21 Chief Complaint: ALLERGIC REACTION Stated Complaint: ALLERGIC REACTION Nursing Triage Summary: pt arrives via EMS reports being woke out of sleep with itchy skin, abdominal pain and feeling like throat was closing pt reports cont feeling of tightness in throat , denies difficulty swallowing or talking pt took 50mg of benedryl pt denies exposure to any known allergy History of Present Illness The patient is a 31 year old female who presents to the Emergency Room with complaints of an allergic reaction. The patient states that she woke up with abdominal cramping and had a bowel movement. She reports that she then developed itching of her skin, swelling of her lips, hands and feet, and a feeling of difficulty swallowing. The patient took 50 mg of Benadryl. She called EMS when her symptoms did not improve. She was given 125 mg Solu-Medrol en route. She states she feels much better at this time. She does still report some abdominal cramping and has had diarrhea. She reports she has had a similar reaction in the past, but is unsure what she could be allergic to. She denies any new environmental exposures, medications, foods, lotions or detergents. She denies shortness of breath or chest pain. Review of Systems A complete 10 point review of systems was reviewed with the patient with pertinent positives and negatives as per history of present illness. All else were negative. Past Medical/Surgical History Medical Problems: (1) Anxiety (2) section (3) ECOLI UTI (4) Fever (5) Mitral valve prolapse (6) with viral (7) with viral (8) Supraventricular tachycardia (9) Tachycardia (10) Viral disease affecting in third trimester, antepartum Family History Cancer Diabetes mellitus Heart disease Hypertension Lung disease Social History Smoking Status: Never Smoker Alcohol Use: occasionally Drug Use: none Marital Status: in relationship Housing Status: lives with family Occupation Status: employed Current/Historical Medications Scheduled Epinephrine (Epipen), 0.3 MG IM UD Metoprolol Tartrate (Lopressor), 25 MG PO BID Physical Exam Vital Signs Date Time Temp Pulse Resp B/P (MAP) Pulse Ox O2 Delivery O2 Flow Rate FiO2 05/20/17 05:49 95 18 113/66 98 05/20/17 04:50 87 20 92/63 98 Room Air 05/20/17 03:22 105 05/20/17 03:18 36.1 105 20 117/92 98 Room Air Physical Exam VITALS: Vitals are noted on the nurse's note and reviewed by myself. Vital signs stable. GENERAL: This is a 31-year-old female, in no acute distress, nondiaphoretic, well-developed well-nourished. SKIN: The skin is mildly erythematous without obvious hives. EARS: External auditory canals clear, tympanic membranes pearly guevara without erythema or effusion bilaterally. EYES: Pupils equal round and reactive to light and accommodation. MOUTH: Mucous membranes moist. Tonsils are not enlarged. Pharynx without erythema or exudate. Airway patent. NECK: Supple without nuchal rigidity. No lymphadenopathy. HEART: Regular rate and rhythm without murmurs gallops or rubs. LUNGS: Clear to auscultation bilaterally without wheezes, rales or rhonchi. No retractions or accessory muscle use. ABDOMEN: Positive bowel sounds x 4. Soft, mild epigastric tenderness to palpation. No guarding or rebound tenderness. NEURO: Patient was alert and oriented to person place and time. Medical Decision & Procedures Medications Administered Medications (Trade) Dose Ordered Sig/Anthony Route Start Time Stop Time Status Last Admin Dose Admin Famotidine (Pepcid 20mg Iv Push) 20 mg STK-MED ONCE IV 05/20/17 04:12 05/20/17 04:13 DC 05/20/17 04:12 20 MG Ketorolac Tromethamine (Toradol Inj) 30 mg NOW STAT IV 05/20/17 04:37 05/20/17 04:38 DC 05/20/17 04:50 30 MG Sodium Chloride 1,000 ml @ 999 mls/hr Q1H1M STAT IV 05/20/17 04:56 05/20/17 05:56 DC 05/20/17 04:56 999 MLS/HR ED Course The patient was evaluated as above. Labs were drawn and IV access was obtained. Patient was medicated with 20 mg Pepcid. Patient was reevaluated and was feeling slightly better. She complained of some stomach cramping. She was given 30 mg Toradol with good relief. Discharge instructions were reviewed with the patient. The patient verbalized understanding of my assessment and treatment plan and was discharged home in good condition. Medical Decision Differential diagnosis includes allergic reaction, anaphylaxis, among others. The patient was evaluated as above. She was treated with Benadryl and Solu- Medrol prior to arrival. She was given IV Pepcid here with improvement. She was given Toradol for abdominal cramping. Patient reports she has had an identical episode of symptoms a few months ago. She is unsure what she is allergic to. I recommended she go for allergy testing. She'll follow-up with her primary care provider for recheck. She verbalized understanding of my assessment and treatment plan was discharged home in good condition. Medication Reconcilliation Current Medication List: was personally reviewed by me Blood Pressure Screening Patient's blood pressure: Normal blood pressure Impression Primary Impression: Allergic reaction Departure Information Dispostion Home / Self-Care Condition GOOD Prescriptions Epinephrine (EPIPEN) 0.3 Mg/0.3 Ml Inj 0.3 MG IM UD, #1 BOX Prov: Cindy Vargas ., GINO 05/20/17 Referrals RV. Butts MD (PCP) Patient Instructions My [facility] Additional Instructions You have been treated in the Emergency Department for an Allergic Reaction. You have been treated and monitored in the Emergency Department appropriately. You should take Benadryl (diphenhydramine) 25-50 mg orally every 4-6 hours for the next 3-4 days. This medication is [id number] and you will NOT need a prescription to purchase this at your local pharmacy. You should take Zantac (ranitidine) 75 mg orally twice daily for the next 7 days. This medication is [id number] and you will NOT need a prescription to purchase this at your local pharmacy. You have been prescribed an EpiPen to be used in the case of an Emergency. Please read the packet you have been given and ask your pharmacist for instructions on proper administration. If you begin to experience the symptoms that brought you to the Emergency Department today, you should give yourself the injection and then report IMMEDIATELY to the Emergency Department for further evaluation and treatment. As with every Emergency Department visit, you should follow-up with your primary care provider in 2-3 days for reevaluation. You may also want to follow up with an back padder. You may consider taking a daily antihistamine (Claritin, Zyrtec, Romy) for prevention of allergic reactions. Return to the Emergency Department if your current symptoms worsen despite treatment course outlined above, or if you develop any of the following symptoms : wheezing, tongue or face swelling, tightness in your throat, shortness of breath, or fainting. Problem Qualifiers Primary Impression: Allergic reaction Encounter type: initial encounter Qualified Codes: T78.40XA - Allergy, unspecified, initial encounter
[2017-05-20] MEDS ORDERED: FAMOTIDINE 20MG/5ML IV PUSH IV ONE (04:12)
[2017-05-20] MEDS ORDERED: KETOROLAC TROMETHAMINE 30 MG/ML VIAL IV STA (04:37)
[2017-05-20] MEDS ORDERED: SODIUM CHLORIDE 0.9% 1000ML 1,000 ML IV STA (04:56)
[2017-05-20] MEDS ORDERED: EPP3/2 IM (05:29)
[2017-05-20 05:49] VITALS: BP 113/66; PULSE 95; O2SAT 98
== END 2017-05-20 05:50 | disposition home or self-care (01) ==
LOC: EDBD 03:15 → C.EDB 03:18
DX: T78.40XA Allergy, unspecified, initial encounter (principal); X58.XXXA Exposure to other specified factors, initial encounter; Z80.9 Family history of malignant neoplasm, unspecified; Z83.3 Family history of diabetes mellitus; Z82.49 Family history of ischemic heart disease and other diseases of the circulatory system

== ENCOUNTER → 2017-11-13 | Outpatient (CLI) | payer OTHER ==
[~2017-11-13] MED LIST changes: -CIPR-255 PO; +EPP3/2 IM; -ONDA4TAB10 SL
== END | disposition home or self-care (01) ==
LOC: C.LAB1850 14:21
PROVIDERS: ATTEND Physician Assistant
DX: R19.7 Diarrhea, unspecified (principal)

== ENCOUNTER → 2017-11-16 | Outpatient (CLI) | payer OTHER ==
--- NOTE | 2017-11-16 14:42 | DIAGNOSTIC IMAGING REPORT ---
ABDOMEN AND PELVIS CT WITH IV AND ORAL CONTRAST CT DOSE: 363.69 mGy.cm HISTORY: Acute diarrhea R19.[id number] scan, gastrointestinal [id number]. TECHNIQUE: Multiaxial CT images of the abdomen and pelvis were performed following the use of intravenous and oral contrast. A dose lowering technique was utilized adhering to the principles of ALARA. COMPARISON STUDY: CT abdomen and pelvis 01/22/2017. FINDINGS: Lung bases appear generally clear. No pneumatosis or pneumoperitoneum. Imaged inferior cardiac chambers are unremarkable. Spleen is mildly enlarged, 14.3 cm. Gallbladder, liver, pancreas and adrenal glands are unremarkable. Kidneys, ureters and bladder are unremarkable. Uterus and adnexa are also within normal limits. The aorta and IVC are unremarkable. Mildly prominent lymph nodes of the mid mesentery measuring up to 6 mm have decreased in size from comparison, previously measuring up to 1.2 cm in short axis. No bowel obstruction. Mild to moderate formed stool throughout the colon. Terminal ileum and appendix appear normal. There is resolution of the previously described multiple fluid-filled loops of bowel. No ascites or mesenteric inflammatory changes. Mild diastases recti. The soft tissues and imaged breast parenchyma otherwise appear unremarkable. The bones appear to be intact. Mild degenerative spurring about the SI joints. IMPRESSION: 1. No acute intra-abdominal or intrapelvic abnormality identified. 2. Mild to moderate formed stool throughout the colon may reflect constipation. No evidence of bowel obstruction or focal bowel wall thickening. 3. Normal appendix. 4. Resolution of the previously described mesenteric adenopathy suggests resolved physiologic response. 5. Mild splenomegaly. Electronically signed by: Jeremy Guerrero M.D. 11/16/2017 2:40 PM Dictated Date/Time: 11/16/2017 2:35 PM
== END | disposition home or self-care (01) ==
LOC: C.CTS 13:59
PROVIDERS: ATTEND Physician Assistant
DX: R19.7 Diarrhea, unspecified (principal); R10.9 Unspecified abdominal pain; R93.3 Abnormal findings on diagnostic imaging of other parts of digestive tract

== ENCOUNTER 2017-12-16 19:58 | Emergency (ER) | payer OTHER ==
[~2017-12-16] VITALS: Ht 157.5 cm; Wt 75.7 kg
[~2017-12-16 19:58] MED LIST changes: -LPR25 PO
[2017-12-16 20:01] VITALS: Ht 157.5 cm; Wt 75.7 kg
[2017-12-16] MEDS ORDERED: PENI-82 PO (20:19)
[2017-12-16] MEDS ORDERED: ACET-1256 PO (20:22)
[2017-12-16] MEDS ORDERED: IBUP-103 PO (20:22)
[2017-12-16] MEDS ORDERED: EPP3/2 IM (20:22)
[2017-12-16] MEDS ORDERED: PENICILLIN HOME PACK 500MG (4 DOSES)BTL PO ONE (20:30)
[2017-12-16] MEDS ORDERED: NORCO 5/325MG HOME PACK PO ONE (20:30)
[2017-12-16 20:32] VITALS: BP 119/78; PULSE 92; TEMP 36.9; O2SAT 98
--- NOTE | 2017-12-16 20:37 | EMERGENCY ROOM VISIT NOTE ---
ED Visit Note First contact with patient: 20:09 CHIEF COMPLAINT: Right upper dental pain HISTORY OF PRESENT ILLNESS: This 32-year-old white female patient has had a progressive toothache since last night. She denies any trauma. The pain is now steady and severe and radiates to the cheek. She has been unable to see a dentist. She states it is giving her headache. Denies facial swelling, chills , sweats, or fever. No nausea or vomiting. No foul taste. She has been using Tylenol and Motrin every 6 hours without improvement in her pain. Pain is 8/ 10. She states she had 5 teeth removed a few months ago. She was seen here previously for right upper dental pain, and states she had that tooth removed. REVIEW OF SYSTEMS: Head: No headache, injury or neck pain. Throat: No sore throat, dysphagia, or hoarseness. Neck: No stiffness, or swelling. Respiratory: No cough, change in sputum, wheezes, hemoptysis, shortness of breath, or stridor. PMH: Supplemental sheet was reviewed. Previous Surgeries: Dental surgery, Medical history: Significant for SVT and anxiety Family history: Noncontributory Current medications: Lopressor, EpiPen Allergies: Dicyclomine SOCIAL HISTORY: Patient lives at home. PHYSICAL EXAM: Vital Signs: Afebrile. Reviewed and filed in patient's chart. General: Well-developed, well-nourished, young white female, in no acute distress. They appear in some discomfort. She is sitting on a bed. Alert and oriented. Skin: Warm and dry with good turgor. No rashes or lesions. No ecchymosis or erythema. The patient is not diaphoretic. No abrasions. HEENT : Normocephalic atraumatic. Eyes PERRLA, EOMI. No conjunctiva or scleral injection. Nares patent bilaterally without turbinate enlargement. No significant drainage. No epistaxis. Oropharynx without erythema or exudate. Uvula midline, oral mucosa moist. No lesions present. The tooth in question, # 3, has multiple fillings and the gum tissue is tender around it. No edema or pointing. It is nonfluctuant. Tooth is not loose. There is no facial swelling , cervical or submandibular lymphadenopathy. DIAGNOSIS: Dental pain DISCHARGE INSTRUCTIONS & TREATMENT: The patient was educated regarding today's findings. Conservative care measures were discussed. [place] 5mg every 6 hours if needed for pain. Driving precautions were given. Home pack was provided. Penicillin V, 500 mg 4 times a day for 10 days. Home pack and prescription were provided. See a dentist as soon as possible for definitive care. She will call tomorrow. Saltwater gargles after every meal. Continue to brush her teeth. Continue Orajel or oil of clove for breakthrough pain. She was reassured that there is nothing to drain at this point and no abscesses visible. Problem List Medical Problems: (1) Anxiety Status: Chronic (2) section Status: Resolved (3) Mitral valve prolapse Status: Chronic (4) Supraventricular tachycardia Status: Chronic Current/Historical Medications Scheduled Metoprolol Tartrate (Lopressor), 25 MG PO BID Penicillin V Potassium (Veetids), 500 MG PO QID Scheduled PRN Acetaminophen (Tylenol), 1,000 MG PO Q6H PRN for Pain Epinephrine (Epipen), 0.3 MG IM UD PRN for Allergic Reaction Ibuprofen Tab (Advil), 400 MG PO Q6H PRN for Pain Allergies Coded Allergies: Dicyclomine (Verified Allergy, Intermediate, hives, extremity swelling, 10/26/17) po Bentyl given in ER pt had reaction with in 30 mins with hives, swelling Vital Signs Date Time Temp Pulse Resp B/P (MAP) Pulse Ox O2 Delivery O2 Flow Rate FiO2 12/16/17 20:32 36.9 92 20 119/78 98 12/16/17 20:01 36.9 92 20 119/78 98 Room Air Medications Administered Medications (Trade) Dose Ordered Sig/Anthony Route Start Time Stop Time Status Last Admin Dose Admin Acetaminophen/ Hydrocodone Bitart ([place] 5/325mg Home Pack) 1 homepack UD ONCE PO 12/16/17 20:30 12/16/17 20:31 DC 12/16/17 20:28 1 HOMEPACK Penicillin V Potassium (Pen-Vk 500MG Home Pack) 1 homepack UD ONCE PO 12/16/17 20:30 12/16/17 20:31 DC 12/16/17 20:28 1 HOMEPACK Departure Information Impression Primary Impression: Pain, dental Dispostion Home / Self-Care Prescriptions Penicillin V Potassium (Veetids) 500 Mg Tab 500 MG PO QID, #40 TAB Prov: Nikolay Wallis,P.A. 12/16/17 Forms HOME CARE DOCUMENTATION FORM, SPECIAL NARCOTICS INSTRUCTIONS, MOTRIN USE, TYLENOL USE, IMPORTANT VISIT INFORMATION Patient Instructions My [facility] Additional Instructions Continue to brush your teeth You may try saltwater gargles after every meal Penicillin 1 pill 4 times a day 10 days [place] 1-2 tablets every 6 hours as needed for severe pain-no driving Tylenol 650mg and Motrin 600mg every 6 hours as needed for mild discomfort Call your dentist in the morning for follow-up this week
[2017-12-16] MEDS ORDERED: LPR25 PO (20:52)
== END 2017-12-16 20:33 | disposition home or self-care (01) ==
LOC: C.EDB 19:59 → C.EDD 20:33
DX: K08.89 Other specified disorders of teeth and supporting structures (principal); R51 Headache; I47.1 Supraventricular tachycardia; Z98.890 Other specified postprocedural states; Z79.899 Other long term (current) drug therapy; Z88.8 Allergy status to other drugs, medicaments and biological substances

== ENCOUNTER 2022-02-05 13:01 | Inpatient (IN) ==
[2022-02-05] MEDS ORDERED: SODIUM CHLORIDE 0.9% 1000ML 1,000 ML IV SCH (13:30)
--- NOTE | 2022-02-05 13:32 | Emergency Department Note ---
Impression & Plan Dysfunctional uterine bleeding, Symptomatic anemia ED Provider Note NAME: JEB POTTER AGE: 36 SEX: F : 1985 ARRIVES VIA: Ambulance INFORMANT: Patient ED PROVIDER(S): Uriel Cisneros DO CHIEF COMPLAINT: vaginal bleeding HPI: Patient is a 36-year-old female who presents to the ER for vaginal bleeding. She notes this started 5 days ago and was the appropriate time for her normal menstrual cycle. Since then her bleeding has remained persistent like it usually is in the first 2 days of her menstrual cycle. She is going through a tampon twice an hour. She admits to dizziness, lightheadedness, weakness, and some shortness of breath without moving around. No chest pain or belly pain. She does feel her heart rate racing. No dysuria, urgency, or frequency. She does have a history of SVT. No other exacerbating or remitting factors. ROS: See above HPI for pertinent positives & negatives. A total of 10 systems reviewed and were otherwise negative. PAST MEDICAL HISTORY:See Below PAST SURGICAL HISTORY:See Below FAMILY HISTORY:See Below SOCIAL HISTORY:See Below HOME MEDICATIONS:See Below ALLERGIES:See Below VITALS:See Below PHYSICAL EXAMINATION: GENERAL: Sitting up in bed, alert, well appearing, well nourished, no distress, non-toxic EYE EXAM: normal conjunctiva. OROPHARYNX: no exudate, no erythema, lips, buccal mucosa, and tongue normal and mucous membranes are moist NECK: supple, no nuchal rigidity, no adenopathy, non-tender LUNGS: Clear to auscultation. Normal chest wall mechanics HEART: no murmurs, S1 normal and S2 normal ABDOMEN: abdomen soft, non-tender, normo-active bowel sounds, no masses, no rebound or guarding. UPPER EXTREMITIES: upper extremities are grossly normal. LOWER EXTREMITIES: No pitting edema. NEURO EXAM: Normal sensorium, cranial nerves II-XII grossly intact, normal speech, no gross weakness of arms, no gross weakness of legs. MEDICAL DECISION MAKING: Patient is a 36-year-old female who presents ER for vaginal bleeding which is been present for the past 5 days. She is going through 2 pads an hour. No blood thinners. Labs show mild leukopenia 4. There is a significant anemia at 7 which is down from baseline of 13 back in August. BMP was unremarkable as well as bilirubin LFTs and lipase. hCG was negative. UA shows a ton of red cells. There were some white cells. Favor the secondary from the vaginal bleeding. COVID was negative. Patient was typed and crossed and given 2 units PRBCs while in the ER. Discussed with Dr. Madrigal who evaluate the patient at bedside admitted her to the hospital service. Ultrasound did show questionable retained products/hypervascular region in the uterus. was negative. Triage Nursing notes reviewed. Limited review of prior medical records performed Vital Signs: reviewed and remarkable for no significant abnormalities Differential diagnosis: Differential diagnoses includes but is not limited to appendicitis, diverticulitis, small bowel obstruction, malignancy, hernia, urinary tract infection, torsion, and ectopic (if female), perforation, trauma, infectious. ER treatment provided: See below Diagnostics interpreted by me: ECG: Sinus rhythm rate of 73 Normal axis No PVCs QTC 438 Cardiac Monitoring: An order was placed for continuous cardiac monitoring. The monitor shows a rate of 70 with sinus rhythm. Laboratory studies: As stated above and show below. Imaging studies: Ultrasound as described above Consultation(s): Discussed with Dr. Krishnamurthy as described above Procedures: none Critical Care: I have personally spent 32 minutes of critical care time in the direct management of this patient. This includes bedside care, interpretation of diagnostic studies, and testing, discussion with consultants, patient, and family members, and other required patient management activities. This 32 minutes is in excess of all separately billable procedures. 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 [employer] Feels Safe at Home: Yes Childhood Exposure to Second-Hand Smoke: Yes Dental Care, Regularly: Yes Physical Activity Frequency: 3-4 Times per Week Seatbelt Use: always Sunscreen Use: Yes Allergies Allergies Allergy/AdvReac Type Severity Reaction Status Date / Time dicyclomine Allergy Intermediate hives, Verified 02/05/22 15:07 extremity swelling Home Meds Home Medications Medication Instructions Recorded Confirmed ferrous sulfate 325 mg (65 mg 325 mg PO BID 08/17/20 02/05/22 iron) tablet (FeroSul) hydroxyzine HCl 25 mg tablet 25 mg PO HS PRN as directed 02/05/22 02/05/22 Previous Rx's Medication Instructions Recorded metoprolol tartrate 25 mg tablet 25 mg PO BID #180 tabs 03/08/20 omeprazole 20 mg tablet,delayed 20 mg PO DAILY #14 tabs 08/23/21 release ondansetron 4 mg disintegrating 4 mg PO Q6H PRN nausea and 09/07/21 tablet vomiting #12 tabs promethazine 25 mg tablet 25 mg PO TID PRN nausea and 09/07/21 vomiting #10 tabs oxybutynin chloride 5 mg tablet 5 mg PO BID PRN bladder spasms #60 01/17/22 tabs Results & Data (ED) Vital Signs Vital Signs - 24 hr 02/05/22 13:06 02/05/22 13:45 02/05/22 15:13 Temperature 36.9 C Temperature Source Oral Pulse Rate 90 Pulse Rate [Right Finger] 106 H Respiratory Rate 18 Blood Pressure 107/60 Blood Pressure [Right Arm] 132/87 Blood Pressure Mean 75 Blood Pressure Mean [Right Arm] 102 Pulse Oximetry 98 98 98 Oxygen Delivery Method Room Air Room Air Room Air Sepsis Recent Fever Within 48 Hours No Sepsis New/Unexplained Change in Mental Status No Sepsis Action Taken by Nursing No Action Required 02/05/22 15:40 02/05/22 16:01 02/05/22 16:37 Temperature 36.5 C 36.6 C Temperature Source Oral Oral Pulse Rate 130 H 113 H Pulse Rate [Right Finger] Respiratory Rate 24 Blood Pressure 109/82 Blood Pressure [Right Arm] Blood Pressure Mean 91 Blood Pressure Mean [Right Arm] Pulse Oximetry 100 100 100 Oxygen Delivery Method Room Air Sepsis Recent Fever Within 48 Hours Sepsis New/Unexplained Change in Mental Status Sepsis Action Taken by Nursing 02/05/22 16:16 02/05/22 16:46 Temperature 36.9 C Temperature Source Oral Pulse Rate 126 H 105 H Pulse Rate [Right Finger] Respiratory Rate Blood Pressure 110/66 111/72 Blood Pressure [Right Arm] Blood Pressure Mean 80 85 Blood Pressure Mean [Right Arm] Pulse Oximetry 100 100 Oxygen Delivery Method Sepsis Recent Fever Within 48 Hours Sepsis New/Unexplained Change in Mental Status Sepsis Action Taken by Nursing Laboratory Data Result diagrams: 02/05/22 13:44 02/05/22 13:44 Lab Results 02/05/22 02/05/22 02/05/22 Range/Units 13:44 13:44 13:44 WBC 4.30 L (4.8-10.8) K/ul RBC 2.37 L (3.93-5.22) M/uL Hgb 7.0 L (12.0-16.0) g/dl Hct 21.0 L (34.1-44.9) % MCV 88.6 (80.0-100.0) fL MCH 29.5 (25.0-34.0) pg MCHC 33.3 (32.0-36.0) g/dL RDW Std Deviation 39.7 (36.4-46.3) fL RDW Coeff of [place]al[place] 12.3 (11.5-14.5) % Plt Count 226 (130-400) K/uL MPV 10.1 (9.4-12.3) fL Immature Gran % (Auto) 0.2 % Neut % (Auto) 63.2 % Lymph % (Auto) 23.7 % [place] % (Auto) 7.4 % Eos % (Auto) 5.3 % Baso % (Auto) 0.2 % Neut # (Auto) 2.71 (1.4-6.5) K/uL Lymph # (Auto) 1.02 L (1.2-3.4) K/uL [place] # (Auto) 0.32 (0.24-0.82) K/uL Eos # (Auto) 0.23 (0-0.50) K/uL Baso # (Auto) 0.01 (0-0.2) K/uL Immature Gran # (Auto) 0.01 (0.00-0.02) K/uL Anisocytosis Present Sodium 139 (136-145) mmol/L Potassium 3.6 (3.5-5.1) mmol/L Chloride 109 H (98-107) mmol/L Carbon Dioxide 25 (21-32) mmol/L Anion Gap 5 (3-11) BUN 14 (6-23) mg/dl Creatinine 0.71 (0.6-1.2) mg/dl Est Cr Clr Drug Dosing 92.4 ml/min Est GFR ( Amer) 128.8 ml/min Est GFR (Non-Af Amer) 111.1 ml/min BUN/Creatinine Ratio 19.7 (10-20) Glucose 95 (70-99(Fasting)) mg/dl Calcium 8.2 L (8.5-10.1) mg/dl Total Bilirubin 0.2 (0.2-1.0) mg/dl AST 15 (13-39) U/L ALT 14 (7-52) U/L Alkaline Phosphatase 46 (34-104) U/L Total Protein 5.9 L (6.0-8.3) gm/dl Albumin 3.4 (3.4-5.0) gm/dl Globulin 2.5 (2.5-4.0) gm/dl Albumin/Globulin Ratio 1.4 (0.9-2) Lipase 21 (11-82) U/L HCG, Quant mIU/ml Urine Color Red Urine Appearance Turbid A (Clear) Urine pH 6.0 (4.5-7.5) Ur Specific [place] >= 1.030 (1.000-1.030) Urine Protein 3+ H (Negative) Urine Glucose (UA) Negative (Negative) Urine Ketones Negative (Negative) Urine Blood 2+ H (Negative) Urine Nitrite Negative (Negative) Urine Bilirubin Negative (Negative) Urine Urobilinogen Negative (Negative) Ur Leukocyte Esterase Negative (Negative) Urine RBC >30 H (0-4) /hpf Urine WBC 10-30 H (0-5) /hpf Ur Epithelial Cells 0-5 (0-5) /lpf Urine Bacteria Negative (Negative) Urine Test (Negative) SARS-CoV-2, RNA, NAAT (NEGATIVE) Blood Type Blood Type Recheck Antibody Screen Crossmatch 02/05/22 02/05/22 02/05/22 Range/Units 13:44 14:00 14:40 WBC (4.8-10.8) K/ul RBC (3.93-5.22) M/uL Hgb (12.0-16.0) g/dl Hct (34.1-44.9) % MCV (80.0-100.0) fL MCH (25.0-34.0) pg MCHC (32.0-36.0) g/dL RDW Std Deviation (36.4-46.3) fL RDW Coeff of [place] (11.5-14.5) % Plt Count (130-400) K/uL MPV (9.4-12.3) fL Immature Gran % (Auto) % Neut % (Auto) % Lymph % (Auto) % [place] % (Auto) % Eos % (Auto) % Baso % (Auto) % Neut # (Auto) (1.4-6.5) K/uL Lymph # (Auto) (1.2-3.4) K/uL [place] # (Auto) (0.24-0.82) K/uL Eos # (Auto) (0-0.50) K/uL Baso # (Auto) (0-0.2) K/uL Immature Gran # (Auto) (0.00-0.02) K/uL Anisocytosis Sodium (136-145) mmol/L Potassium (3.5-5.1) mmol/L Chloride (98-107) mmol/L Carbon Dioxide (21-32) mmol/L Anion Gap (3-11) BUN (6-23) mg/dl Creatinine (0.6-1.2) mg/dl Est Cr Clr Drug Dosing ml/min Est GFR ( Amer) ml/min Est GFR (Non-Af Amer) ml/min BUN/Creatinine Ratio (10-20) Glucose (70-99(Fasting)) mg/dl Calcium (8.5-10.1) mg/dl Total Bilirubin (0.2-1.0) mg/dl AST (13-39) U/L ALT (7-52) U/L Alkaline Phosphatase (34-104) U/L Total Protein (6.0-8.3) gm/dl Albumin (3.4-5.0) gm/dl Globulin (2.5-4.0) gm/dl Albumin/Globulin Ratio (0.9-2) Lipase (11-82) U/L HCG, Quant < 1 mIU/ml Urine Color Urine Appearance (Clear) Urine pH (4.5-7.5) Ur Specific [place] (1.000-1.030) Urine Protein (Negative) Urine Glucose (UA) (Negative) Urine Ketones (Negative) Urine Blood (Negative) Urine Nitrite (Negative) Urine Bilirubin (Negative) Urine Urobilinogen (Negative) Ur Leukocyte Esterase (Negative) Urine RBC (0-4) /hpf Urine WBC (0-5) /hpf Ur Epithelial Cells (0-5) /lpf Urine Bacteria (Negative) Urine Test (Negative) SARS-CoV-2, RNA, NAAT NEGATIVE (NEGATIVE) Blood Type O Positive Blood Type Recheck Antibody Screen NEGATIVE Crossmatch See Detail 02/05/22 02/05/22 Range/Units 15:29 Unknown WBC (4.8-10.8) K/ul RBC (3.93-5.22) M/uL Hgb (12.0-16.0) g/dl Hct (34.1-44.9) % MCV (80.0-100.0) fL MCH (25.0-34.0) pg MCHC (32.0-36.0) g/dL RDW Std Deviation (36.4-46.3) fL RDW Coeff of [place] (11.5-14.5) % Plt Count (130-400) K/uL MPV (9.4-12.3) fL Immature Gran % (Auto) % Neut % (Auto) % Lymph % (Auto) % [place] % (Auto) % Eos % (Auto) % Baso % (Auto) % Neut # (Auto) (1.4-6.5) K/uL Lymph # (Auto) (1.2-3.4) K/uL [place] # (Auto) (0.24-0.82) K/uL Eos # (Auto) (0-0.50) K/uL Baso # (Auto) (0-0.2) K/uL Immature Gran # (Auto) (0.00-0.02) K/uL Anisocytosis Sodium (136-145) mmol/L Potassium (3.5-5.1) mmol/L Chloride (98-107) mmol/L Carbon Dioxide (21-32) mmol/L Anion Gap (3-11) BUN (6-23) mg/dl Creatinine (0.6-1.2) mg/dl Est Cr Clr Drug Dosing ml/min Est GFR ( Amer) ml/min Est GFR (Non-Af Amer) ml/min BUN/Creatinine Ratio (10-20) Glucose (70-99(Fasting)) mg/dl Calcium (8.5-10.1) mg/dl Total Bilirubin (0.2-1.0) mg/dl AST (13-39) U/L ALT (7-52) U/L Alkaline Phosphatase (34-104) U/L Total Protein (6.0-8.3) gm/dl Albumin (3.4-5.0) gm/dl Globulin (2.5-4.0) gm/dl Albumin/Globulin Ratio (0.9-2) Lipase (11-82) U/L HCG, Quant mIU/ml Urine Color Urine Appearance (Clear) Urine pH (4.5-7.5) Ur Specific [place] (1.000-1.030) Urine Protein (Negative) Urine Glucose (UA) (Negative) Urine Ketones (Negative) Urine Blood (Negative) Urine Nitrite (Negative) Urine Bilirubin (Negative) Urine Urobilinogen (Negative) Ur Leukocyte Esterase (Negative) Urine RBC (0-4) /hpf Urine WBC (0-5) /hpf Ur Epithelial Cells (0-5) /lpf Urine Bacteria (Negative) Urine Test Negative (Negative) SARS-CoV-2, RNA, NAAT (NEGATIVE) Blood Type Blood Type Recheck O Positive Antibody Screen Crossmatch Administered Medications Discontinued Medications Estradiol (Estradiol 1 Mg Tab) 2 mg PO NOW STA Stop: 02/05/22 15:21 Last Admin: 02/05/22 15:49 Dose: 2 mg Documented By: MES Sodium Chloride (Nss 1000ml) 1,000 mls @ 999 mls/hr IV .Q1H1M RAJAN Stop: 02/05/22 14:30 Last Infusion: 02/05/22 14:52 Dose: 0 mls/hr Documented By: Admin: 02/05/22 13:48 Dose: 999 mls/hr Documented By: ES Lorazepam (Lorazepam 1 Mg Tab) 1 mg SL NOW STA Stop: 02/05/22 15:13 Last Admin: 02/05/22 15:19 Dose: 1 mg Documented By: MES Imaging Data Radiologist's Impression: Pelvis Ultrasound 02/05/22 13:28 US pelvic complete CLINICAL HISTORY: vag bleed TECHNIQUE: Real-time sonographic images of the pelvic contents were obtained with transabdominal and transvaginal technique. Comparison: None available at the time of this dictation. FINDINGS: The uterus measures 9.1 x 4.7 x 6.1 cm. The endometrial cavity echo stripe measures 0.4 cm in thickness. There is a vascular area seen in the lower uterine segment just above the cervix measuring 4.6 x 2.8 x 2.7 cm. The right ovary measures 2.3 x 2.0 x 3.2 cm. The left ovary measures 3.0 x 1.4 x 2.6 cm. Normal appearance of the ovaries bilaterally. Doppler flow is seen bilaterally. There was trace fluid in the cul-de-sac. IMPRESSION: There is a hypervascular focus in the lower uterus. Clinical correlation is recommended as this may represent retained products of conception, gestational trophoblastic disease, or other acute abnormality. ACT 112: Negative or not required by law. Electronically signed by: Damon Napier M.D. 02/05/2022 3:02 PM Discharge Plan Visit Data Chief Complaint: Vaginal Bleeding Stated Complaint: VAG, BLEEDING, SOB, DIZZINESS, ED Provider: Uriel Cisneros Discharge Problem: Dysfunctional uterine bleeding, Symptomatic anemia Forms Stand Alone Forms: My [facility] [employer] Prescriptions Prescriptions: No Action metoprolol tartrate 25 mg tablet 25 mg PO BID Qty: 180 3RF ferrous sulfate [FeroSul] 325 mg (65 mg iron) tablet 325 mg PO BID oxybutynin chloride 5 mg tablet 5 mg PO BID PRN (Reason: bladder spasms) Qty: 60 5RF omeprazole 20 mg tablet,delayed release (DR/EC) 20 mg PO DAILY Qty: 14 0RF ondansetron 4 mg tablet,disintegrating 4 mg PO Q6H PRN (Reason: nausea and vomiting) Qty: 12 0RF promethazine 25 mg tablet 25 mg PO TID PRN (Reason: nausea and vomiting) Qty: 10 0RF hydroxyzine HCl 25 mg tablet 25 mg PO HS PRN (Reason: as directed) Referrals Referrals: Alvino Griffin MD [Primary Care Provider] -
[2022-02-05 13:57] LABS: Basophils # (auto) 0.01 K/uL (0-0.2); Basophils % (auto) 0.2 %; Eosinophils # (auto) 0.23 K/uL (0-0.50); Eosinophils % (auto) 5.3 %; Immature Granulocytes # (auto) 0.01 K/uL (0.00-0.02); Immature Granulocytes % (auto) 0.2 %; Lymphocytes # (auto) 1.02 K/uL (1.2-3.4); Lymphocytes % (auto) 23.7 %; Mean Corpuscular Hemoglobin 29.5 pg (25.0-34.0); Mean Corpuscular Hgb Conc 33.3 g/dL (32.0-36.0); Mean Corpuscular Volume 88.6 fL (80.0-100.0); Mean Platelet Volume 10.1 fL (9.4-12.3); Monocytes # (auto) 0.32 K/uL (0.24-0.82); Monocytes % (auto) 7.4 %; Neutrophils # (auto) 2.71 K/uL (1.4-6.5); Neutrophils % (auto) 63.2 %; Platelet Count 226 K/uL (130-400); RDW Coefficient of Variation 12.3 % (11.5-14.5); RDW Standard Deviation 39.7 fL (36.4-46.3); Red Blood Count 2.37 M/uL (3.93-5.22)
[2022-02-05 14:10] LABS: Appearance Urine Turbid (Clear); Bilirubin Urine Negative (Negative); Blood Urine 2+ (Negative); Color Urine Red; Glucose Urine UA Negative (Negative); Ketones Urine Negative (Negative); Leukocyte Esterase Urine Negative (Negative); Nitrite Urine Negative (Negative); Protein Urine 3+ (Negative); Specific Gravity Urine >= 1.030 (1.000-1.030); Urobilinogen Urine Negative (Negative)
[2022-02-05 14:14] LABS: Anisocytosis Present
[2022-02-05 14:18] LABS: Albumin Globulin Ratio 1.4 (0.9-2); Albumin Level 3.4 gm/dl (3.4-5.0); BUN Creatinine Ratio 19.7 (10-20); Bilirubin,Total 0.2 mg/dl (0.2-1.0); Calcium 8.2 mg/dl (8.5-10.1); Creatinine Clr Calc Pharmacy 92.4 ml/min; Est GFR (African American) 128.8 ml/min; Est GFR (Non-African American) 111.1 ml/min; Globulin 2.5 gm/dl (2.5-4.0); Potassium 3.6 mmol/L (3.5-5.1); Total Protein 5.9 gm/dl (6.0-8.3)
[2022-02-05] MEDS ORDERED: SODIUM CHLORIDE 0.9% 250 ML IV PRN ×2 (14:23→14:29)
[2022-02-05 14:28] LABS: Pregnancy Test, Urine Negative (Negative)
[2022-02-05 14:37] LABS: Epithelial Cell Urine 0-5 /lpf (0-5); RBC Urine >30 /hpf (0-4)
[2022-02-05 14:58] LABS: Bacteria Urine Negative (Negative)
--- NOTE | 2022-02-05 15:04 | Ultrasound Report ---
US pelvic complete CLINICAL HISTORY: vag bleed TECHNIQUE: Real-time sonographic images of the pelvic contents were obtained with transabdominal and transvaginal technique. Comparison: None available at the time of this dictation. FINDINGS: The uterus measures 9.1 x 4.7 x 6.1 cm. The endometrial cavity echo stripe measures 0.4 cm in thickne ss. There is a vascular area seen in the lower uterine segment just above the cervix measuring 4.6 x 2.8 x 2.7 cm. The right ovary measures 2.3 x 2.0 x 3.2 cm. The left ovary measures 3.0 x 1.4 x 2.6 cm. Normal appea dread of the ovaries bilaterally. Doppler flow is seen bilaterally. There was trace fluid in the cul-de-sac. IMPRESSION: There is a hypervascular focus in the lower uterus. Clinical correlation is recommended as this may r epresent retained products of conception, gestational trophoblastic disease, or other acute abnormali ty. ACT 112: Negative or not required by law. Electronically signed by: Damon Napier M.D. 02/05/2022 3:02 PM
[2022-02-05] MEDS ORDERED: LORazepam 1 MG TAB SL STA (15:12)
[2022-02-05] MEDS ORDERED: estradioL 1 MG TAB PO STA (15:20)
[2022-02-05] MEDS ORDERED: ONDANSETRON INJ 2 MG/ML 2 ML VIAL IV PRN (16:16)
[2022-02-05] MEDS ORDERED: ZOLPIDEM TARTRATE 5 MG TAB PO PRN (16:16)
[2022-02-05] MEDS ORDERED: ACETAMINOPHEN 325 MG TAB PO PRN (16:16)
[2022-02-05] MEDS ORDERED: ALUMINUM/MAGNESIUM/SIMETH (MAALOX MAX) 30 ML UDC PO PRN (16:16)
[2022-02-05] MEDS ORDERED: LORazepam 0.5 MG TAB PO PRN (16:16)
[2022-02-05] MEDS ORDERED: MAGNESIUM HYDROXIDE SUSP 30 ML UDC PO PRN (16:16)
[2022-02-05] MEDS ORDERED: OXYBUTYNIN CHLORIDE 5 MG TAB PO PRN (16:19)
[2022-02-05] MEDS ORDERED: hydrOXYzine HCl 25 MG TAB PO PRN (16:19)
--- NOTE | 2022-02-05 16:44 | OB/GYN Consultation ---
Date of Consultation February 05, 2022 Assessment & Plan (1) H/O tubal ligation: (2) Anxiety: (3) Heavy menstrual period: 36-year-old -0-0-3 status post 3 C-sections and tubal ligation, presenting with heavy vaginal bleeding, symptomatic anemia, tachycardia, getting blood transfusion now, Clinically stable, no active bleeding per pelvic exam, Ultrasound with normal endometrial lining and the upper uterine cavity with thickening on lower uterine cavity, ?blood clots, ?tissue or polyp? No s/s of Plan to admit, monitor, complete 2 units of packed red blood cell, p.o. estrogen, repeat ultrasound tomorrow and possible discharge tomorrow morning, Discussed future management of heavy periods with possible hysteroscopy, biopsy of lesion, polypectomy if needed, Mirena IUD versus control pills versus endometrial ablation in details, Patient agrees to follow-up in office. All questions were answered. (4) Episode of heavy vaginal bleeding: (5) Anemia due to blood loss, acute: History of Present Illness Reason for Consultation: Heavy vaginal bleeding History of Present Illness Patient is a 36-year-old -0-0-3, s/p 3 C-sections and tubal ligation, who is presenting with episodes of heavy vaginal bleeding. Her periods have been regular with 2 days of heavy bleeding followed by light bleeding for total of 5 days. This time she is on day 5 and still heavy. She has been changing her pad and tampon every 30 to 45 minutes and passing large clots, plum size. She felt palpitations and dizzy/lightheaded at home and came to ER. Blood pressures have been normal but her pulse has been high since she presented to ER. She believes she is also anxious this is affecting her symptoms. She gets painful cramping with her periods and saw [employer] in November 2021 when she was recommended to get Mirena IUD. She was thinking about that and is also asking for endometrial ablation. We discussed endometrial ablation in details and failure rate and intrauterine scarring/synechia and post tubal/ ablation syndrome. He denies pelvic pain today, has not taken anything for pain. She has been with same partner for 8 years and has not had STDs in the past. Allergies Allergy/AdvReac Type Severity Reaction Status Date / Time dicyclomine Allergy Intermediate hives, Verified 02/05/22 15:07 extremity swelling Home Medications Medication Instructions Recorded Confirmed Type metoprolol tartrate 25 mg tablet 25 mg PO BID #180 tabs 03/08/20 02/05/22 Rx ferrous sulfate 325 mg (65 mg 325 mg PO BID 08/17/20 02/05/22 History iron) tablet (FeroSul) omeprazole 20 mg tablet,delayed 20 mg PO DAILY #14 tabs 08/23/21 02/05/22 Rx release ondansetron 4 mg disintegrating 4 mg PO Q6H PRN nausea and 09/07/21 02/05/22 Rx tablet vomiting #12 tabs promethazine 25 mg tablet 25 mg PO TID PRN nausea and 09/07/21 02/05/22 Rx vomiting #10 tabs oxybutynin chloride 5 mg tablet 5 mg PO BID PRN bladder spasms #60 01/17/22 02/05/22 Rx tabs hydroxyzine HCl 25 mg tablet 25 mg PO HS PRN as directed 02/05/22 02/05/22 History Patient History Medical History Anxiety SVT (supraventricular tachycardia) Surgical History H/O tubal ligation Family History Other No pertinent family history Denies family history of Ovarian cancer Prostate cancer Myocardial infarction Breast cancer Colorectal cancer Social History Smoking Status: Never smoker Second Hand Exposure: No; Hx Alcohol Use: Yes (Rarely ) Hx Substance Use: No Preferred Language: Arabic marital status: current occupational status: employed 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 [employer] Feels Safe at Home: Yes Childhood Exposure to Second-Hand Smoke: Yes Dental Care, Regularly: Yes Physical Activity Frequency: 3-4 Times per Week Seatbelt Use: always Sunscreen Use: Yes Review of Systems Constitutional: as per Subjective / HPI Physical Exam Constitutional: WD/WN, vitals as above well developed, well nourished and comfortable Not in acute distress, mildly anxious Gastrointestinal (Abdomen): normal bowel sounds, soft, nontender, no hepatosplenomegaly Genitourinary: normal external appearance (Blood) Speculum/Bimanual Exam: normal appearance of the vagina (No blood in vagina), normal appearance of the cervix (No blood on cervix, cleaned and cervix is normal, stenotic, no active bleed), + abnormal uterine size (8-week size), normal vaginal palpation and normal cervical palpation Uterus is nontender, no cervical motion tenderness, adnexa are nonpalpable nontender. Results & Data ([facility]) Vital Signs (Past 12 Hours) Vital Signs Temp Pulse Pulse Resp BP BP Pulse Ox 02/05/22 16:01 36.6 C 113 H 100 02/05/22 15:40 36.5 C 130 H 24 109/82 100 02/05/22 15:13 106 H 132/87 98 02/05/22 13:45 98 02/05/22 13:06 36.9 C 90 18 107/60 98 O2 Del Method 02/05/22 16:01 02/05/22 15:40 02/05/22 15:13 Room Air 02/05/22 13:45 Room Air 02/05/22 13:06 Room Air Laboratory Results Lab Results 02/05/22 02/05/22 02/05/22 Range/Units 13:44 13:44 13:44 WBC 4.30 L (4.8-10.8) K/ul RBC 2.37 L (3.93-5.22) M/uL Hgb 7.0 L (12.0-16.0) g/dl Hct 21.0 L (34.1-44.9) % MCV 88.6 (80.0-100.0) fL MCH 29.5 (25.0-34.0) pg MCHC 33.3 (32.0-36.0) g/dL RDW Std Deviation 39.7 (36.4-46.3) fL RDW Coeff of Rosalinda 12.3 (11.5-14.5) % Plt Count 226 (130-400) K/uL MPV 10.1 (9.4-12.3) fL Immature Gran % (Auto) 0.2 % Neut % (Auto) 63.2 % Lymph % (Auto) 23.7 % Mitchell % (Auto) 7.4 % Eos % (Auto) 5.3 % Baso % (Auto) 0.2 % Neut # (Auto) 2.71 (1.4-6.5) K/uL Lymph # (Auto) 1.02 L (1.2-3.4) K/uL Mitchell # (Auto) 0.32 (0.24-0.82) K/uL Eos # (Auto) 0.23 (0-0.50) K/uL Baso # (Auto) 0.01 (0-0.2) K/uL Immature Gran # (Auto) 0.01 (0.00-0.02) K/uL Anisocytosis Present Sodium 139 (136-145) mmol/L Potassium 3.6 (3.5-5.1) mmol/L Chloride 109 H (98-107) mmol/L Carbon Dioxide 25 (21-32) mmol/L Anion Gap 5 (3-11) BUN 14 (6-23) mg/dl Creatinine 0.71 (0.6-1.2) mg/dl Est Cr Clr Drug Dosing 92.4 ml/min Est GFR ( Amer) 128.8 ml/min Est GFR (Non-Af Amer) 111.1 ml/min BUN/Creatinine Ratio 19.7 (10-20) Glucose 95 (70-99(Fasting)) mg/dl Calcium 8.2 L (8.5-10.1) mg/dl Total Bilirubin 0.2 (0.2-1.0) mg/dl AST 15 (13-39) U/L ALT 14 (7-52) U/L Alkaline Phosphatase 46 (34-104) U/L Total Protein 5.9 L (6.0-8.3) gm/dl Albumin 3.4 (3.4-5.0) gm/dl Globulin 2.5 (2.5-4.0) gm/dl Albumin/Globulin Ratio 1.4 (0.9-2) Lipase 21 (11-82) U/L HCG, Quant mIU/ml Urine Color Red Urine Appearance Turbid A (Clear) Urine pH 6.0 (4.5-7.5) Ur Specific [place] >= 1.030 (1.000-1.030) Urine Protein 3+ H (Negative) Urine Glucose (UA) Negative (Negative) Urine Ketones Negative (Negative) Urine Blood 2+ H (Negative) Urine Nitrite Negative (Negative) Urine Bilirubin Negative (Negative) Urine Urobilinogen Negative (Negative) Ur Leukocyte Esterase Negative (Negative) Urine RBC >30 H (0-4) /hpf Urine WBC 10-30 H (0-5) /hpf Ur Epithelial Cells 0-5 (0-5) /lpf Urine Bacteria Negative (Negative) Urine Test (Negative) SARS-CoV-2, RNA, NAAT (NEGATIVE) Blood Type Blood Type Recheck Antibody Screen Crossmatch 02/05/22 02/05/22 02/05/22 Range/Units 13:44 14:00 14:40 WBC (4.8-10.8) K/ul RBC (3.93-5.22) M/uL Hgb (12.0-16.0) g/dl Hct (34.1-44.9) % MCV (80.0-100.0) fL MCH (25.0-34.0) pg MCHC (32.0-36.0) g/dL RDW Std Deviation (36.4-46.3) fL RDW Coeff of Rosalinda (11.5-14.5) % Plt Count (130-400) K/uL MPV (9.4-12.3) fL Immature Gran % (Auto) % Neut % (Auto) % Lymph % (Auto) % Mitchell % (Auto) % Eos % (Auto) % Baso % (Auto) % Neut # (Auto) (1.4-6.5) K/uL Lymph # (Auto) (1.2-3.4) K/uL [place] # (Auto) (0.24-0.82) K/uL Eos # (Auto) (0-0.50) K/uL Baso # (Auto) (0-0.2) K/uL Immature Gran # (Auto) (0.00-0.02) K/uL Anisocytosis Sodium (136-145) mmol/L Potassium (3.5-5.1) mmol/L Chloride (98-107) mmol/L Carbon Dioxide (21-32) mmol/L Anion Gap (3-11) BUN (6-23) mg/dl Creatinine (0.6-1.2) mg/dl Est Cr Clr Drug Dosing ml/min Est GFR ( Amer) ml/min Est GFR (Non-Af Amer) ml/min BUN/Creatinine Ratio (10-20) Glucose (70-99(Fasting)) mg/dl Calcium (8.5-10.1) mg/dl Total Bilirubin (0.2-1.0) mg/dl AST (13-39) U/L ALT (7-52) U/L Alkaline Phosphatase (34-104) U/L Total Protein (6.0-8.3) gm/dl Albumin (3.4-5.0) gm/dl Globulin (2.5-4.0) gm/dl Albumin/Globulin Ratio (0.9-2) Lipase (11-82) U/L HCG, Quant < 1 mIU/ml Urine Color Urine Appearance (Clear) Urine pH (4.5-7.5) Ur Specific [place] (1.000-1.030) Urine Protein (Negative) Urine Glucose (UA) (Negative) Urine Ketones (Negative) Urine Blood (Negative) Urine Nitrite (Negative) Urine Bilirubin (Negative) Urine Urobilinogen (Negative) Ur Leukocyte Esterase (Negative) Urine RBC (0-4) /hpf Urine WBC (0-5) /hpf Ur Epithelial Cells (0-5) /lpf Urine Bacteria (Negative) Urine Test (Negative) SARS-CoV-2, RNA, NAAT NEGATIVE (NEGATIVE) Blood Type O Positive Blood Type Recheck Antibody Screen NEGATIVE Crossmatch See Detail 02/05/22 02/05/22 Range/Units 15:29 Unknown WBC (4.8-10.8) K/ul RBC (3.93-5.22) M/uL Hgb (12.0-16.0) g/dl Hct (34.1-44.9) % MCV (80.0-100.0) fL MCH (25.0-34.0) pg MCHC (32.0-36.0) g/dL RDW Std Deviation (36.4-46.3) fL RDW Coeff of Rosalinda (11.5-14.5) % Plt Count (130-400) K/uL MPV (9.4-12.3) fL Immature Gran % (Auto) % Neut % (Auto) % Lymph % (Auto) % [place] % (Auto) % Eos % (Auto) % Baso % (Auto) % Neut # (Auto) (1.4-6.5) K/uL Lymph # (Auto) (1.2-3.4) K/uL [place] # (Auto) (0.24-0.82) K/uL Eos # (Auto) (0-0.50) K/uL Baso # (Auto) (0-0.2) K/uL Immature Gran # (Auto) (0.00-0.02) K/uL Anisocytosis Sodium (136-145) mmol/L Potassium (3.5-5.1) mmol/L Chloride (98-107) mmol/L Carbon Dioxide (21-32) mmol/L Anion Gap (3-11) BUN (6-23) mg/dl Creatinine (0.6-1.2) mg/dl Est Cr Clr Drug Dosing ml/min Est GFR ( Amer) ml/min Est GFR (Non-Af Amer) ml/min BUN/Creatinine Ratio (10-20) Glucose (70-99(Fasting)) mg/dl Calcium (8.5-10.1) mg/dl Total Bilirubin (0.2-1.0) mg/dl AST (13-39) U/L ALT (7-52) U/L Alkaline Phosphatase (34-104) U/L Total Protein (6.0-8.3) gm/dl Albumin (3.4-5.0) gm/dl Globulin (2.5-4.0) gm/dl Albumin/Globulin Ratio (0.9-2) Lipase (11-82) U/L HCG, Quant mIU/ml Urine Color Urine Appearance (Clear) Urine pH (4.5-7.5) Ur Specific [place] (1.000-1.030) Urine Protein (Negative) Urine Glucose (UA) (Negative) Urine Ketones (Negative) Urine Blood (Negative) Urine Nitrite (Negative) Urine Bilirubin (Negative) Urine Urobilinogen (Negative) Ur Leukocyte Esterase (Negative) Urine RBC (0-4) /hpf Urine WBC (0-5) /hpf Ur Epithelial Cells (0-5) /lpf Urine Bacteria (Negative) Urine Test Negative (Negative) SARS-CoV-2, RNA, NAAT (NEGATIVE) Blood Type Blood Type Recheck O Positive Antibody Screen Crossmatch Diagnostic Findings FINDINGS: The uterus measures 9.1 x 4.7 x 6.1 cm. The endometrial cavity echo stripe measures 0.4 cm in thickness. There is a vascular area seen in the lower uterine segment just above the cervix measuring 4.6 x 2.8 x 2.7 cm. The right ovary measures 2.3 x 2.0 x 3.2 cm. The left ovary measures 3.0 x 1.4 x 2.6 cm. Normal appearance of the ovaries bilaterally. Doppler flow is seen bilaterally. There was trace fluid in the cul-de-sac. IMPRESSION: There is a hypervascular focus in the lower uterus. Clinical correlation is recommended as this may represent retained products of conception, gestational trophoblastic disease, or other acute abnormality.
[2022-02-05] MEDS: METOPROLOL TARTRATE 25 MG TAB PO SCH (21:41)
[2022-02-05] MEDS: FERROUS SULFATE 325 MG TAB PO SCH (21:41)
[2022-02-05] MEDS: PANTOprazole 40 MG TAB PO SCH ×2 (21:42→21:44)
--- NOTE | 2022-02-06 06:18 | Obstetrical Progress Note ---
Date of Service February 06, 2022 Assessment & Plan Admission and Anticipated Discharge Date Admission Date: February 05, 2022 Subjective Epic chart review: US done at [facility] on 07/2021: 1. A hypoechoic area with vascularity extending from the anterior lower uterine segment into the cervical/endometrial region. As before, findings may represent a fibroid, scar or lesion. Recommend correlation with MRI pelvis with contrast. MRI of pelvis on 09/2021: UTERUS: Anteverted in position measuring 6.0 x 6.5 x 10.4 cm (AP x TR x CC). Postsurgical changes of prior . Prolapsing 2.3 x 2.6 x 3.5 cm predominately intracavitary viable fibroid within lower uterine segment/upper endocervix. This fibroid originates off the lower anterior uterine body. Normal thickness endometrium. Mildly distended in the cervix, otherwise normal appearance of the cervix Patient was scheduled for Hysterectomy, Removal of fibroid vs polyp, placement of IUD on 01/[address] Ward but she has cancelled the procedure. The vascular area seen on yesterdays US most likely the same lesion. Patient was changing jobs at that point and had to cancel. She likes to schedule again. I will let office know to help to schedule. Her bleeding stopped. All questions were answered. Plan to d/c after CBC. Results & Data ([facility]) Vital Signs (Past 12 Hours) Vital Signs Temp Pulse Pulse Resp BP BP Pulse Ox 02/06/22 04:30 36.7 C 85 16 94/58 L 99 02/06/22 00:00 36.9 C 86 16 92/58 L 98 02/05/22 22:20 36.9 C 86 16 92/58 L 98 02/05/22 21:50 36.9 C 97 H 16 95/62 L 101 H 02/05/22 21:20 36.8 C 107 H 16 108/67 98 02/05/22 20:50 37 C 101 H 16 96/61 L 100 02/05/22 21:00 37 C 101 H 16 96/61 L 100 02/05/22 20:35 37.4 C 113 H 18 99/62 L 98 02/05/22 20:16 37.1 C 111 H 18 103/67 97 02/05/22 18:25 37.3 C 101 H 18 116/71 100 O2 Del Method 02/06/22 04:30 Room Air 02/06/22 00:00 Room Air 02/05/22 22:20 02/05/22 21:50 02/05/22 21:20 02/05/22 20:50 02/05/22 21:00 Room Air 02/05/22 20:35 02/05/22 20:16 02/05/22 18:25 Room Air
[2022-02-06 07:24] LABS: Basophils # (auto) 0.03 K/uL (0-0.2); Basophils % (auto) 0.6 %; Eosinophils # (auto) 0.23 K/uL (0-0.50); Eosinophils % (auto) 4.9 %; Hemoglobin 8.3 g/dl (12.0-16.0); Immature Granulocytes # (auto) 0.02 K/uL (0.00-0.02); Immature Granulocytes % (auto) 0.4 %; Lymphocytes # (auto) 1.98 K/uL (1.2-3.4); Lymphocytes % (auto) 42.1 %; Mean Corpuscular Hemoglobin 29.3 pg (25.0-34.0); Mean Corpuscular Hgb Conc 33.2 g/dL (32.0-36.0); Mean Corpuscular Volume 88.3 fL (80.0-100.0); Mean Platelet Volume 10.1 fL (9.4-12.3); Monocytes # (auto) 0.43 K/uL (0.24-0.82); Monocytes % (auto) 9.1 %; Neutrophils # (auto) 2.01 K/uL (1.4-6.5); Neutrophils % (auto) 42.9 %; Platelet Count 202 K/uL (130-400); RDW Coefficient of Variation 12.8 % (11.5-14.5); RDW Standard Deviation 41.4 fL (36.4-46.3); Red Blood Count 2.83 M/uL (3.93-5.22)
--- NOTE | 2022-02-06 08:15 | Electrocardiogram Report ---
Test Reason : Blood Pressure : / mmHG Vent. Rate : 073 BPM Atrial Rate : 073 BPM P-R Int : 168 ms QRS Dur : 080 ms QT Int : 398 ms P-R-T Axes : 071 070 063 degrees QTc Int : 438 ms Sinus rhythm with occasional Premature ventricular complexes Otherwise normal ECG When compared with ECG of 07-SEP-2021 05:31, Premature ventricular complexes are now Present Confirmed by Pablo Godwin ([id number]) on 02/06/2022 8:15:33 AM Referred By: REFERRED SELF Confirmed By:Pablo Godwin
[2022-02-06] MEDS: METOPROLOL TARTRATE 25 MG TAB PO SCH (08:26)
[2022-02-06] MEDS: PANTOprazole 40 MG TAB PO SCH (08:30)
[2022-02-06] MEDS: FERROUS SULFATE 325 MG TAB PO SCH (08:30)
[2022-02-06] MEDS ORDERED: estradioL 1 MG TAB PO SCH (09:00)
--- NOTE | 2022-02-06 10:05 | Gynecologic Progress Note ---
Date of Service February 06, 2022 Assessment & Plan (1) Dysfunctional uterine bleeding: Plan: follow up in office for IUD continue Fe as outpatient (2) Symptomatic anemia: (3) Anemia due to blood loss, acute: Admission and Anticipated Discharge Date Admission Date: February 05, 2022 Subjective doing well bleeding has stopped and would like to go home Physical Exam Constitutional: WD/WN, vitals as above Gastrointestinal (Abdomen): normal bowel sounds, soft, nontender, no hepatosplenomegaly Inspection/Auscultation: abdomen normal to inspection abdomen soft and non-tender Musculoskeletal: no cyanosis or clubbing, extremities motor strength 5/5 Extremities: extremities normal to inspection Skin: no rashes, warm and dry Neurologic: patellar DTR's 2+ bilat, sensation intact Results & Data ([facility]) Vital Signs (Past 12 Hours) Vital Signs Temp Pulse Pulse Resp BP BP BP 02/06/22 07:30 37 C 88 16 102/64 02/06/22 04:30 36.7 C 85 16 94/58 L 02/06/22 00:00 36.9 C 86 16 92/58 L 02/05/22 22:20 36.9 C 86 16 92/58 L Pulse Ox O2 Del Method 02/06/22 07:30 99 Room Air 02/06/22 04:30 99 Room Air 02/06/22 00:00 98 Room Air 02/05/22 22:20 98 Laboratory Results 02/05/22 02/05/22 02/05/22 13:44 13:44 13:44 WBC 4.30 L RBC 2.37 L Hgb 7.0 L Hct 21.0 L MCV 88.6 MCH 29.5 MCHC 33.3 RDW Std Deviation 39.7 RDW Coeff of Rosalinda 12.3 Plt Count 226 MPV 10.1 Immature Gran % (Auto) 0.2 Neut % (Auto) 63.2 Lymph % (Auto) 23.7 Dol[place] % (Auto) 7.4 Eos % (Auto) 5.3 Baso % (Auto) 0.2 Neut # (Auto) 2.71 Lymph # (Auto) 1.02 L [place] # (Auto) 0.32 Eos # (Auto) 0.23 Baso # (Auto) 0.01 Immature Gran # (Auto) 0.01 Anisocytosis Present Sodium 139 Potassium 3.6 Chloride 109 H Carbon Dioxide 25 Anion Gap 5 BUN 14 Creatinine 0.71 Est Cr Clr Drug Dosing 92.4 Est GFR ( Amer) 128.8 Est GFR (Non-Af Amer) 111.1 BUN/Creatinine Ratio 19.7 Glucose 95 Calcium 8.2 L Total Bilirubin 0.2 AST 15 ALT 14 Alkaline Phosphatase 46 Total Protein 5.9 L Albumin 3.4 Globulin 2.5 Albumin/Globulin Ratio 1.4 Lipase 21 HCG, Quant Urine Color Red Urine Appearance Turbid A Urine pH 6.0 Ur Specific [place] >= 1.030 Urine Protein 3+ H Urine Glucose (UA) Negative Urine Ketones Negative Urine Blood 2+ H Urine Nitrite Negative Urine Bilirubin Negative Urine Urobilinogen Negative Ur Leukocyte Esterase Negative Urine RBC >30 H Urine WBC 10-30 H Ur Epithelial Cells 0-5 Urine Bacteria Negative Urine Test SARS-CoV-2, RNA, NAAT Blood Type Blood Type Recheck Antibody Screen Crossmatch 02/05/22 02/05/22 02/05/22 13:44 14:00 14:40 WBC RBC Hgb Hct MCV MCH MCHC RDW Std Deviation RDW Coeff of Rosalinda Plt Count MPV Immature Gran % (Auto) Neut % (Auto) Lymph % (Auto) Dolores % (Auto) Eos % (Auto) Baso % (Auto) Neut # (Auto) Lymph # (Auto) Dol[place] # (Auto) Eos # (Auto) Baso # (Auto) Immature Gran # (Auto) Anisocytosis Sodium Potassium Chloride Carbon Dioxide Anion Gap BUN Creatinine Est Cr Clr Drug Dosing Est GFR ( Amer) Est GFR (Non-Af Amer) BUN/Creatinine Ratio Glucose Calcium Total Bilirubin AST ALT Alkaline Phosphatase Total Protein Albumin Globulin Albumin/Globulin Ratio Lipase HCG, Quant < 1 Urine Color Urine Appearance Urine pH Ur Specific [place] Urine Protein Urine Glucose (UA) Urine Ketones Urine Blood Urine Nitrite Urine Bilirubin Urine Urobilinogen Ur Leukocyte Esterase Urine RBC Urine WBC Ur Epithelial Cells Urine Bacteria Urine Test SARS-CoV-2, RNA, NAAT NEGATIVE Blood Type O Positive Blood Type Recheck Antibody Screen NEGATIVE Crossmatch See Detail 02/05/22 02/05/22 02/06/22 15:29 Unknown 06:29 WBC 4.70 L RBC 2.83 L Hgb 8.3 L Hct 25.0 L MCV 88.3 MCH 29.3 MCHC 33.2 RDW Std Deviation 41.4 RDW Coeff of Rosalinda 12.8 Plt Count 202 MPV 10.1 Immature Gran % (Auto) 0.4 Neut % (Auto) 42.9 Lymph % (Auto) 42.1 Dol[place] % (Auto) 9.1 Eos % (Auto) 4.9 Baso % (Auto) 0.6 Neut # (Auto) 2.01 Lymph # (Auto) 1.98 [place] # (Auto) 0.43 Eos # (Auto) 0.23 Baso # (Auto) 0.03 Immature Gran # (Auto) 0.02 Anisocytosis Sodium Potassium Chloride Carbon Dioxide Anion Gap BUN Creatinine Est Cr Clr Drug Dosing Est GFR ( Amer) Est GFR (Non-Af Amer) BUN/Creatinine Ratio Glucose Calcium Total Bilirubin AST ALT Alkaline Phosphatase Total Protein Albumin Globulin Albumin/Globulin Ratio Lipase HCG, Quant Urine Color Urine Appearance Urine pH Ur Specific [place] Urine Protein Urine Glucose (UA) Urine Ketones Urine Blood Urine Nitrite Urine Bilirubin Urine Urobilinogen Ur Leukocyte Esterase Urine RBC Urine WBC Ur Epithelial Cells Urine Bacteria Urine Test Negative SARS-CoV-2, RNA, NAAT Blood Type Blood Type Recheck O Positive Antibody Screen Crossmatch
== END 2022-02-06 10:43 | disposition home or self-care (01) | DRG 760 ==
LOC: ED 13:01 → 4E2 16:16

== ENCOUNTER 2022-03-05 05:04 | Inpatient (IN) ==
[2022-03-05] MEDS ORDERED: SODIUM CHLORIDE 0.9% 250 ML IV PRN ×4 (05:29→20:19)
[2022-03-05] MEDS ORDERED: PANTOprazole 40 MG in SYRINGE 0 ML IV ONE (05:30)
[2022-03-05] MEDS ORDERED: ONDANSETRON INJ 2 MG/ML 2 ML VIAL IV STA (05:30)
[2022-03-05] MEDS ORDERED: FAMOTIDINE 20MG IV PUSH 20 MG/5 ML SYR IV STA (05:30)
[2022-03-05] MEDS ORDERED: SODIUM CHLORIDE 0.9% 1000ML 1,000 ML IV ONE (05:30)
[2022-03-05 05:38] LABS: iSTAT Creatinine 0.7 mg/dl (0.6-1.3); iSTAT Hemoglobin 5.8 g/dl (12.0-16.0); iSTAT Ionized Calcium 1.13 mmol/l (1.12-1.32); iSTAT Potassium 3.7 mmol/L (3.3-5.0)
--- NOTE | 2022-03-05 05:41 | Emergency Department Note ---
History of Present Illness General Chief complaint: Shortness of Breath/Dyspnea Stated complaint: SHORT OF BREATH/LIGHTHEADED Time Seen by Provider: 03/05/22 05:31 History of Present Illness This 36-year-old presents to the ER complaining of heavy vaginal bleeding for the past few days Location: Vaginal Quality: Heavy Severity: Heavy Duration: Past few days Timing: Started few days ago Context: Symptoms got much worse and patient came back Modifying factors: better with rest; worse with activity Patient was seen yesterday morning and had blood work and ultrasound done. Patient denies chest pain, fever, chills. She does feel lightheaded and short of breath. She has received blood in the past. She is due next month to get an ablation and an IUD placed by IT GENERALIST. Home Medications Medication Instructions Recorded Confirmed Type metoprolol tartrate 25 mg tablet 25 mg PO BID #180 tabs 03/08/20 02/05/22 Rx ferrous sulfate 325 mg (65 mg 325 mg PO BID 08/17/20 02/05/22 History iron) tablet (FeroSul) omeprazole 20 mg tablet,delayed 20 mg PO DAILY #14 tabs 08/23/21 02/05/22 Rx release ondansetron 4 mg disintegrating 4 mg PO Q6H PRN nausea and 09/07/21 02/05/22 Rx tablet vomiting #12 tabs promethazine 25 mg tablet 25 mg PO TID PRN nausea and 09/07/21 02/05/22 Rx vomiting #10 tabs oxybutynin chloride 5 mg tablet 5 mg PO BID PRN bladder spasms #60 01/17/22 02/05/22 Rx tabs hydroxyzine HCl 25 mg tablet 25 mg PO HS PRN as directed 02/05/22 02/05/22 History ferrous sulfate 325 mg (65 mg 325 mg PO BID #60 tabs 02/06/22 Rx iron) tablet,delayed release norethindrone acetate 5 mg tablet 5 mg PO TID 5 days #15 tabs 03/04/22 Rx (Aygestin) Allergies Allergy/AdvReac Type Severity Reaction Status Date / Time dicyclomine Allergy Intermediate hives, Verified 02/05/22 15:07 extremity swelling Past Med/Surg History Medical History Anxiety SVT (supraventricular tachycardia) Surgical History H/O tubal ligation Family History Other No pertinent family history Denies family history of Ovarian cancer Prostate cancer Myocardial infarction Breast cancer Colorectal cancer Social History Smoking Status: Never smoker Second Hand Exposure: No; Hx Alcohol Use: No Hx Substance Use: No Preferred Language: Colombian Communication Ability: Effective Tread Booker Required: Voice Beliefs That Will Affect Care: None marital status: Current Living Situation: Family current occupational status: employed 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 [employer] Feels Safe at Home: Yes Childhood Exposure to Second-Hand Smoke: Yes Dental Care, Regularly: Yes Physical Activity Frequency: 3-4 Times per Week Seatbelt Use: always Sunscreen Use: Yes Review of Systems A total of 10 systems reviewed and were otherwise negative Physical Exam Vital Signs Vital Signs - 24 hr 03/05/22 05:11 03/05/22 05:40 Temperature 36.7 C Temperature Source Oral Pulse Rate 97 H Respiratory Rate 16 Respiratory Depth Normal Blood Pressure 95/59 L Blood Pressure Mean 71 Pulse Oximetry 98 100 Oxygen Delivery Method Room Air Room Air Sepsis Recent Fever Within 48 Hours No Sepsis New/Unexplained Change in Mental Status N/A Sepsis Action Taken by Nursing No Action Required VITALS: Vitals are noted on the nurse's note and reviewed by myself. Vital signs hypotensive GENERAL: Pleasant female pale appearing SKIN: The skin was without rashes, erythema, edema, or bruising. There is no tenting of the skin. Capillary reflex less than 2 seconds. HEAD: Normocephalic atraumatic. EARS: External auditory canals clear, EYES: Pupils equal round and reactive to light and accommodation. Conjunctivae without injection, sclerae without icterus. Extraocular movements intact. NOSE: Patent, turbinates without inflammation or discharge. MOUTH: Mucous membranes moist. Pharynx without erythema or exudate. Uvula midline. Airway patent. Tongue does not deviate. NECK: Supple without nuchal rigidity. No lymphadenopathy. No thyromegaly. Cervical spine is nontender. No JVD. HEART: Regular rate and rhythm LUNGS: Clear to auscultation bilaterally without wheezes, rales or rhonchi. No retractions or accessory muscle use. ABDOMEN: Positive bowel sounds x 4. Normal tympanic percussion. Soft, mild suprapubic tenderness, without masses or organomegaly. Galeano sign negative. No guarding or rebound tenderness. No CVA tenderness MUSCULOSKELETAL: No muscle atrophy, erythema, or edema noted. NEURO: Patient was alert and oriented to person place and time. Normal sensation to light and sharp touch. No focal neurological deficits. Course Administered Medications Sodium Chloride (Nss 1000ml) 1,000 mls @ 999 mls/hr IV .Q1H1M ONE Stop: 03/05/22 06:30 Last Admin: 03/05/22 05:59 Dose: 999 mls/hr Documented By: CECI Discontinued Medications Famotidine (Pepcid 20mg Iv Push) 20 mg in 5 mls @ 2.5 mls/min IV NOW STA Stop: 03/05/22 05:31 Last Admin: 03/05/22 05:56 Dose: 2.5 mls/min Documented By: CECI Lorazepam (Lorazepam 1 Mg/1 Ml Syr) 1 mg IV NOW STA; Protocol Stop: 03/05/22 05:43 Last Admin: 03/05/22 05:57 Dose: 1 mg Documented By: CECI Ondansetron HCl (Ondansetron Inj 2 Mg/Ml 2 Ml Vial) 4 mg IV NOW STA Stop: 03/05/22 05:31 Last Admin: 03/05/22 05:57 Dose: 4 mg Documented By: CECI Medical Decision Making Medical Records Attestation: I reviewed the patient's medical records. Home Medications Current Medication List: was personally reviewed by me Laboratory Data Attestation: I reviewed the patient's lab results. Result diagrams: 03/05/22 04:48 03/05/22 04:48 Lab Results 03/05/22 03/05/22 03/05/22 Range/Units 04:48 04:48 04:48 WBC 7.32 (4.8-10.8) K/ul RBC 2.21 L (3.93-5.22) M/uL Hgb 6.4 L* (12.0-16.0) g/dl POC Hgb (12.0-16.0) g/dl Hct 19.2 L* (34.1-44.9) % POC Hct (37-47) % MCV 86.9 (80.0-100.0) fL MCH 29.0 (25.0-34.0) pg MCHC 33.3 (32.0-36.0) g/dL RDW Std Deviation 39.3 (36.4-46.3) fL RDW Coeff of Rosalinda 12.4 (11.5-14.5) % Plt Count 264 (130-400) K/uL MPV 10.5 (9.4-12.3) fL PT 10.8 (9.0-12.0) Seconds INR 1.0 (0.9-1.1) APTT 21.9 (21.0-31.0) Seconds PTT Ratio 0.8 POC Sodium (135-144) mmol/L Sodium 135 L (136-145) mmol/L POC Potassium (3.3-5.0) mmol/L Potassium 3.7 (3.5-5.1) mmol/L POC Chloride (101-112) mmol/L Chloride 107 (98-107) mmol/L Carbon Dioxide 22 (21-32) mmol/L POC Total CO2 (24-31) mmol/L Anion Gap 6 (3-11) POC Anion Gap (16-25) mmol/L POC BUN (7-18) mg/dl BUN 28 H (6-23) mg/dl Creatinine 0.71 (0.6-1.2) mg/dl POC Creatinine (0.6-1.3) mg/dl Est Cr Clr Drug Dosing 92.4 ml/min Est GFR ( Amer) 128.8 ml/min Est GFR (Non-Af Amer) 111.1 ml/min BUN/Creatinine Ratio 39.4 H (10-20) Glucose 126 H (70-99(Fasting)) mg/dl POC Glucose (other) (70-99) mg/dl Calcium 8.0 L (8.5-10.1) mg/dl POC Ioniz Calcium Serina (1.12-1.32) mmol/l Total Bilirubin 0.2 (0.2-1.0) mg/dl AST 14 (13-39) U/L ALT 14 (7-52) U/L Alkaline Phosphatase 48 (34-104) U/L Total Protein 6.0 (6.0-8.3) gm/dl Albumin 3.5 (3.4-5.0) gm/dl Globulin 2.5 (2.5-4.0) gm/dl Albumin/Globulin Ratio 1.4 (0.9-2) HCG, Qual (Negative) SARS-CoV-2, RNA, NAAT (NEGATIVE) Blood Type Antibody Screen Crossmatch 03/05/22 03/05/22 03/05/22 Range/Units 04:48 05:21 05:25 WBC (4.8-10.8) K/ul RBC (3.93-5.22) M/uL Hgb (12.0-16.0) g/dl POC Hgb 5.8 L* (12.0-16.0) g/dl Hct (34.1-44.9) % POC Hct 17 L* (37-47) % MCV (80.0-100.0) fL MCH (25.0-34.0) pg MCHC (32.0-36.0) g/dL RDW Std Deviation (36.4-46.3) fL RDW Coeff of Rosalinda (11.5-14.5) % Plt Count (130-400) K/uL MPV (9.4-12.3) fL PT (9.0-12.0) Seconds INR (0.9-1.1) APTT (21.0-31.0) Seconds PTT Ratio POC Sodium 139 (135-144) mmol/L Sodium (136-145) mmol/L POC Potassium 3.7 (3.3-5.0) mmol/L Potassium (3.5-5.1) mmol/L POC Chloride 106 (101-112) mmol/L Chloride (98-107) mmol/L Carbon Dioxide (21-32) mmol/L POC Total CO2 21 L (24-31) mmol/L Anion Gap (3-11) POC Anion Gap 17.0 (16-25) mmol/L POC BUN 24 H (7-18) mg/dl BUN (6-23) mg/dl Creatinine (0.6-1.2) mg/dl POC Creatinine 0.7 (0.6-1.3) mg/dl Est Cr Clr Drug Dosing ml/min Est GFR ( Amer) ml/min Est GFR (Non-Af Amer) ml/min BUN/Creatinine Ratio (10-20) Glucose (70-99(Fasting)) mg/dl POC Glucose (other) 114 H (70-99) mg/dl Calcium (8.5-10.1) mg/dl POC Ioniz Calcium Serina 1.13 (1.12-1.32) mmol/l Total Bilirubin (0.2-1.0) mg/dl AST (13-39) U/L ALT (7-52) U/L Alkaline Phosphatase (34-104) U/L Total Protein (6.0-8.3) gm/dl Albumin (3.4-5.0) gm/dl Globulin (2.5-4.0) gm/dl Albumin/Globulin Ratio (0.9-2) HCG, Qual Negative (Negative) SARS-CoV-2, RNA, NAAT (NEGATIVE) Blood Type O Positive Antibody Screen NEGATIVE Crossmatch See Detail 03/05/22 Range/Units 05:35 WBC (4.8-10.8) K/ul RBC (3.93-5.22) M/uL Hgb (12.0-16.0) g/dl POC Hgb (12.0-16.0) g/dl Hct (34.1-44.9) % POC Hct (37-47) % MCV (80.0-100.0) fL MCH (25.0-34.0) pg MCHC (32.0-36.0) g/dL RDW Std Deviation (36.4-46.3) fL RDW Coeff of Rosalinda (11.5-14.5) % Plt Count (130-400) K/uL MPV (9.4-12.3) fL PT (9.0-12.0) Seconds INR (0.9-1.1) APTT (21.0-31.0) Seconds PTT Ratio POC Sodium (135-144) mmol/L Sodium (136-145) mmol/L POC Potassium (3.3-5.0) mmol/L Potassium (3.5-5.1) mmol/L POC Chloride (101-112) mmol/L Chloride (98-107) mmol/L Carbon Dioxide (21-32) mmol/L POC Total CO2 (24-31) mmol/L Anion Gap (3-11) POC Anion Gap (16-25) mmol/L POC BUN (7-18) mg/dl BUN (6-23) mg/dl Creatinine (0.6-1.2) mg/dl POC Creatinine (0.6-1.3) mg/dl Est Cr Clr Drug Dosing ml/min Est GFR ( Amer) ml/min Est GFR (Non-Af Amer) ml/min BUN/Creatinine Ratio (10-20) Glucose (70-99(Fasting)) mg/dl POC Glucose (other) (70-99) mg/dl Calcium (8.5-10.1) mg/dl POC Ioniz Calcium Serina (1.12-1.32) mmol/l Total Bilirubin (0.2-1.0) mg/dl AST (13-39) U/L ALT (7-52) U/L Alkaline Phosphatase (34-104) U/L Total Protein (6.0-8.3) gm/dl Albumin (3.4-5.0) gm/dl Globulin (2.5-4.0) gm/dl Albumin/Globulin Ratio (0.9-2) HCG, Qual (Negative) SARS-CoV-2, RNA, NAAT NEGATIVE (NEGATIVE) Blood Type Antibody Screen Crossmatch Imaging Data Attestation: I personally reviewed and interpreted this imaging study as follows: MDM Narrative Prior records/ancillary studies reviewed. Triage Nursing notes reviewed. Additional history obtained from the family. The patient's history was concerning for vaginal bleeding and abdominal pain. Differential diagnosis: Etiologies such as ectopic , dysfunction uterine bleeding, bleeding dyscrasia, trauma, infection, as well as others were entertained. Physical examination: As above. Vitals signs revealed reviewed. ER treatment provided: Two IV lines, fluids Pepcid Protonix Zofran type and cross for 2 units and consented On reassessment the patient felt better. Diagnostic interpretation by me: Severe anemia much worse than yesterday. Patient was consented to blood and 2 units were written for. Imaging studies: [facility] [place], [place] [phone] Ultrasound Report Patient:JEB POTTER Admit Date:03/04/22 MR#:[id number] Address1:[address] [place] [address] Acct ID:[id number] Address2: Date:1985 [facility] Zip:[place] [address] Age:36 Location:ED Sex:F Room/Bed: Att Phy: Diagnosis:VAGINAL BLEEDING, SHORTNESS OF BREATH Felicity Phy:Alvino Griffin MD Service Date:03/04/22 [facility] Phy: Interpreting Phy:Nate Joshi MDAdmit Phy: Ordering Phy:Ned Cruz D.O. cc: ~ PELVIC ULTRASOUND, TRANSABDOMINAL AND TRANSVAGINAL HISTORY: heavy vag bleeding COMPARISON: Pelvic ultrasound 02/05/2022. FINDINGS: Uterus: 10.8 x 6.6 x 5.0 cm. Fluid and debris filled vaginal canal. This is avascular and therefore favors blood products. Endometrial stripe: Redemonstration of the 3.9 x 3.4 x 2.0 cm hypoechoic focus at the lower uterine segment. This demonstrates color flow. Right ovary: Normal in size and demonstrates normal color flow. Left ovary: Normal in size and demonstrates normal color flow. Miscellaneous:No pelvic free fluid. IMPRESSION: 1. Redemonstration of the hypoechoic hypervascular focus within the lower uterine segment measuring 3.9 x 3.4 x 2.0 cm. Gynecologic consultation recommended to assess for a possible mass. 2. Fluid and debris filled vaginal canal likely representing blood products. 3. Normal ovaries. ACT 112: Negative or not required by law. Electronically signed by: Nate Joshi M.D. Consultation: A consultation was placed with the travel rn physician, Dr. Cr. The case was discussed and diagnostics were reviewed. He will admit the patient. This appears to be consistent with symptomatic anemia. OB was consulted. They will evaluate and admit the patient. Patient is agreeable. By the evaluation outlined above emergent etiologies such as bleeding dyscrasia, ectopic , trauma, as well as others were deemed relatively unlikely. The pt informed about the findings as listed above. All questions were answered and pleased with the treatment. The chart was completed utilizing [employer] voice recognition software. Grammatical errors, random word insertions, pronoun errors, and incomplete sentences are an occassional consequence of this system due to software limitations, ambient noise, and hardware issues. Any formal questions or concerns about the content, text, or information contained within the body of this dictation should be directly addressed to the physician assistant press operator offset for clarification. Impression & Plan Symptomatic anemia, Abnormal vaginal bleeding Discharge Plan Visit Data Chief Complaint: Shortness of Breath/Dyspnea Stated Complaint: SHORT OF BREATH/LIGHTHEADED ED Provider: Melly Martin ED Midlevel Provider: Delilah Caban Discharge Problem: Symptomatic anemia, Abnormal vaginal bleeding Patient Disposition: Admitted As Inpatient Condition: Fair Forms Stand Alone Forms: [employer] Prescriptions Prescriptions: No Action metoprolol tartrate 25 mg tablet 25 mg PO BID Qty: 180 3RF ferrous sulfate [FeroSul] 325 mg (65 mg iron) tablet 325 mg PO BID oxybutynin chloride 5 mg tablet 5 mg PO BID PRN (Reason: bladder spasms) Qty: 60 5RF omeprazole 20 mg tablet,delayed release (DR/EC) 20 mg PO DAILY Qty: 14 0RF ondansetron 4 mg tablet,disintegrating 4 mg PO Q6H PRN (Reason: nausea and vomiting) Qty: 12 0RF promethazine 25 mg tablet 25 mg PO TID PRN (Reason: nausea and vomiting) Qty: 10 0RF hydroxyzine HCl 25 mg tablet 25 mg PO HS PRN (Reason: as directed) ferrous sulfate 325 mg (65 mg iron) Tablet,Delayed Release (Dr/Ec) 325 mg PO BID Qty: 60 2RF norethindrone acetate [Aygestin] 5 mg tablet 5 mg PO TID 5 Days Qty: 15 0RF Referrals Referrals: Alvino Griffin MD [Primary Care Provider] -
[2022-03-05] MEDS ORDERED: LORazepam 1 MG/1 ML SYR IV STA (05:42)
[2022-03-05 05:57] LABS: Pregnancy Test, Serum Negative (Negative)
[2022-03-05 06:04] LABS: Albumin Globulin Ratio 1.4 (0.9-2); Albumin Level 3.5 gm/dl (3.4-5.0); BUN Creatinine Ratio 39.4 (10-20); Bilirubin,Total 0.2 mg/dl (0.2-1.0); Creatinine Clr Calc Pharmacy 92.4 ml/min; Est GFR (African American) 128.8 ml/min; Est GFR (Non-African American) 111.1 ml/min; Globulin 2.5 gm/dl (2.5-4.0); Potassium 3.7 mmol/L (3.5-5.1)
[2022-03-05 06:08] LABS: Partial Thromboplastin Ratio 0.8; Partial Thromboplastin Time 21.9 Seconds (21.0-31.0); Prothrombin Time 10.8 Seconds (9.0-12.0)
[2022-03-05 06:09] LABS: Hematocrit (blood only) 19.2 % (34.1-44.9); Hemoglobin 6.4 g/dl (12.0-16.0); Mean Corpuscular Hgb Conc 33.3 g/dL (32.0-36.0); Mean Corpuscular Volume 86.9 fL (80.0-100.0); Mean Platelet Volume 10.5 fL (9.4-12.3); Platelet Count 264 K/uL (130-400); RDW Coefficient of Variation 12.4 % (11.5-14.5); RDW Standard Deviation 39.3 fL (36.4-46.3); Red Blood Count 2.21 M/uL (3.93-5.22); White Blood Count 7.32 K/ul (4.8-10.8)
[2022-03-05 06:27] LABS: Basophils # (auto) 0.02 K/uL (0-0.2); Basophils % (auto) 0.3 %; Eosinophils # (auto) 0.23 K/uL (0-0.50); Eosinophils % (auto) 3.1 %; Immature Granulocytes # (auto) 0.06 K/uL (0.00-0.02); Immature Granulocytes % (auto) 0.8 %; Lymphocytes # (auto) 2.26 K/uL (1.2-3.4); Lymphocytes % (auto) 30.9 %; Monocytes # (auto) 0.49 K/uL (0.24-0.82); Monocytes % (auto) 6.7 %; Neutrophils # (auto) 4.26 K/uL (1.4-6.5); Neutrophils % (auto) 58.2 %; RBC Morphology Unremarkable
--- NOTE | 2022-03-05 07:03 | History & Physical Report ---
Date of Service March 05, 2022 Assessment & Plan (1) Dysfunctional uterine bleeding: Plan: Admit and give PRBC's (2) Symptomatic anemia: (3) Abnormal vaginal bleeding: (4) Symptomatic anemia: History of Present Illness Chief Complaint: heavy menstrual bleeding Primary Care Provider: Alvino Griffin MD 36 F [id number] LMP now with ongoing heavy vaginal bleeding with passage of large clots and cramps associated with shortness of breath, dizziness and light headedness. No nausea or vomiting. She was seen last month for similar problem and was set up by Dr. Ward to have endometrial ablation. Allergies Allergy/AdvReac Type Severity Reaction Status Date / Time dicyclomine Allergy Intermediate hives, Verified 02/05/22 15:07 extremity swelling Home Medications Medication Instructions Recorded Confirmed Type metoprolol tartrate 25 mg tablet 25 mg PO BID #180 tabs 03/08/20 02/05/22 Rx ferrous sulfate 325 mg (65 mg 325 mg PO BID 08/17/20 02/05/22 History iron) tablet (FeroSul) omeprazole 20 mg tablet,delayed 20 mg PO DAILY #14 tabs 08/23/21 02/05/22 Rx release ondansetron 4 mg disintegrating 4 mg PO Q6H PRN nausea and 09/07/21 02/05/22 Rx tablet vomiting #12 tabs promethazine 25 mg tablet 25 mg PO TID PRN nausea and 09/07/21 02/05/22 Rx vomiting #10 tabs oxybutynin chloride 5 mg tablet 5 mg PO BID PRN bladder spasms #60 01/17/22 02/05/22 Rx tabs hydroxyzine HCl 25 mg tablet 25 mg PO HS PRN as directed 02/05/22 02/05/22 History ferrous sulfate 325 mg (65 mg 325 mg PO BID #60 tabs 02/06/22 Rx iron) tablet,delayed release norethindrone acetate 5 mg tablet 5 mg PO TID 5 days #15 tabs 03/04/22 Rx (Aygestin) Patient History Medical History Anxiety SVT (supraventricular tachycardia) Surgical History H/O tubal ligation Family History Other No pertinent family history Denies family history of Ovarian cancer Prostate cancer Myocardial infarction Breast cancer Colorectal cancer Social History Smoking Status: Never smoker Second Hand Exposure: No; Hx Alcohol Use: No Hx Substance Use: No Preferred Language: Bengali Communication Ability: Effective Research Hydrologist Required: Voice Beliefs That Will Affect Care: None marital status: Current Living Situation: Family current occupational status: employed 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 [employer] Feels Safe at Home: Yes Childhood Exposure to Second-Hand Smoke: Yes Dental Care, Regularly: Yes Physical Activity Frequency: 3-4 Times per Week Seatbelt Use: always Sunscreen Use: Yes 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 Tubal 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 Review of Systems All systems reviewed & are unremarkable except as noted in HPI & below Physical Exam Constitutional: WD/WN, vitals as above Eyes: PERRL, conjunctivae normal, anicteric sclerae Respiratory: normal respiratory effort, lungs clear to auscultation Cardiovascular: RRR, no murmur, no edema Rate/Rhythm: regular rate and regular rhythm Gastrointestinal (Abdomen): normal bowel sounds, soft, nontender, no hepatosplenomegaly Inspection/Auscultation: + abdominal surgical incision Musculoskeletal: Extremities: extremities normal to inspection Neurologic: patellar DTR's 2+ bilat, sensation intact Psychiatric: A+Ox3, euthymic affect Genitourinary: Speculum/Bimanual Exam: + vaginal bleeding (large clots fill the vagina on speculum exam. No masses palpable. No CMT) Results & Data ([facility]) Vital Signs (Past 12 Hours) Vital Signs Temp Pulse Resp BP Pulse Ox O2 Del Method 03/05/22 06:30 36.7 C 125 H 20 120/68 100 03/05/22 05:40 100 Room Air 03/05/22 05:11 36.7 C 97 H 16 95/59 L 98 Room Air Laboratory Results Laboratory Results - last 48 hr 03/05/22 03/05/22 03/05/22 04:48 04:48 04:48 WBC 7.32 RBC 2.21 L Hgb 6.4 L* POC Hgb Hct 19.2 L* POC Hct MCV 86.9 MCH 29.0 MCHC 33.3 RDW Std Deviation 39.3 RDW Coeff of Rosalinda 12.4 Plt Count 264 MPV 10.5 Immature Gran % (Auto) 0.8 Neut % (Auto) 58.2 Lymph % (Auto) 30.9 [place] % (Auto) 6.7 Eos % (Auto) 3.1 Baso % (Auto) 0.3 Neut # (Auto) 4.26 Lymph # (Auto) 2.26 [place] # (Auto) 0.49 Eos # (Auto) 0.23 Baso # (Auto) 0.02 Immature Gran # (Auto) 0.06 H RBC Morphology Unremarkable PT 10.8 INR 1.0 APTT 21.9 PTT Ratio 0.8 POC Sodium Sodium 135 L POC Potassium Potassium 3.7 POC Chloride Chloride 107 Carbon Dioxide 22 POC Total CO2 Anion Gap 6 POC Anion Gap POC BUN BUN 28 H Creatinine 0.71 POC Creatinine Est Cr Clr Drug Dosing 92.4 Est GFR ( Amer) 128.8 Est GFR (Non-Af Amer) 111.1 BUN/Creatinine Ratio 39.4 H Glucose 126 H POC Glucose (other) Calcium 8.0 L POC Ioniz Calcium Serina Total Bilirubin 0.2 AST 14 ALT 14 Alkaline Phosphatase 48 Total Protein 6.0 Albumin 3.5 Globulin 2.5 Albumin/Globulin Ratio 1.4 HCG, Qual SARS-CoV-2, RNA, NAAT Blood Type Antibody Screen Crossmatch 03/05/22 03/05/22 03/05/22 04:48 05:21 05:25 WBC RBC Hgb POC Hgb 5.8 L* Hct POC Hct 17 L* MCV MCH MCHC RDW Std Deviation RDW Coeff of Rosalinda Plt Count MPV Immature Gran % (Auto) Neut % (Auto) Lymph % (Auto) [place] % (Auto) Eos % (Auto) Baso % (Auto) Neut # (Auto) Lymph # (Auto) [place] # (Auto) Eos # (Auto) Baso # (Auto) Immature Gran # (Auto) RBC Morphology PT INR APTT PTT Ratio POC Sodium 139 Sodium POC Potassium 3.7 Potassium POC Chloride 106 Chloride Carbon Dioxide POC Total CO2 21 L Anion Gap POC Anion Gap 17.0 POC BUN 24 H BUN Creatinine POC Creatinine 0.7 Est Cr Clr Drug Dosing Est GFR ( Amer) Est GFR (Non-Af Amer) BUN/Creatinine Ratio Glucose POC Glucose (other) 114 H Calcium POC Ioniz Calcium Serina 1.13 Total Bilirubin AST ALT Alkaline Phosphatase Total Protein Albumin Globulin Albumin/Globulin Ratio HCG, Qual Negative SARS-CoV-2, RNA, NAAT Blood Type O Positive Antibody Screen NEGATIVE Crossmatch See Detail 03/05/22 05:35 WBC RBC Hgb POC Hgb Hct POC Hct MCV MCH MCHC RDW Std Deviation RDW Coeff of Rosalinda Plt Count MPV Immature Gran % (Auto) Neut % (Auto) Lymph % (Auto) [place] % (Auto) Eos % (Auto) Baso % (Auto) Neut # (Auto) Lymph # (Auto) [place] # (Auto) Eos # (Auto) Baso # (Auto) Immature Gran # (Auto) RBC Morphology PT INR APTT PTT Ratio POC Sodium Sodium POC Potassium Potassium POC Chloride Chloride Carbon Dioxide POC Total CO2 Anion Gap POC Anion Gap POC BUN BUN Creatinine POC Creatinine Est Cr Clr Drug Dosing Est GFR ( Amer) Est GFR (Non-Af Amer) BUN/Creatinine Ratio Glucose POC Glucose (other) Calcium POC Ioniz Calcium Serina Total Bilirubin AST ALT Alkaline Phosphatase Total Protein Albumin Globulin Albumin/Globulin Ratio HCG, Qual SARS-CoV-2, RNA, NAAT NEGATIVE Blood Type Antibody Screen Crossmatch
[2022-03-05] MEDS ORDERED: ONDANSETRON INJ 2 MG/ML 2 ML VIAL IV PRN ×3 (07:04→13:18)
[2022-03-05] MEDS ORDERED: ACETAMINOPHEN 325 MG TAB PO PRN (07:04)
[2022-03-05] MEDS ORDERED: LORazepam 0.5 MG TAB PO PRN (07:04)
[2022-03-05] MEDS ORDERED: IBUPROFEN 600 MG TAB PO PRN ×2 (07:14→13:18)
[2022-03-05] MEDS: ESTROGENS, CONJUGATED 25 MG in SYRINGE 0 ML IV SCH ×2 (07:48→15:11)
[2022-03-05] MEDS ORDERED: diphenhydrAMINE Capsule 25 MG CAP PO ONE (08:26)
[2022-03-05] MEDS ORDERED: ACETAMINOPHEN 325 MG TAB PO STA (08:26)
[2022-03-05] MEDS: IBUPROFEN 600 MG TAB PO SCH ×2 (09:16→15:11)
[2022-03-05] MEDS: LACTATED RINGER'S 1,000 ML IV SCH ×4 (09:44→23:50)
--- NOTE | 2022-03-05 10:16 | Anesthesiology Consultation ---
Date of Service March 05, 2022 Assessment & Plan (1) Encounter for pre-operative examination: Chart Review Chart Review: clinical sales consultant initiated History Height/Weight Height: 5 ft 3 in Weight: 61 kg Allergies Allergy/AdvReac Type Severity Reaction Status Date / Time dicyclomine Allergy Intermediate hives, Verified 03/05/22 08:41 extremity swelling Medications Home Medications Medication Instructions Recorded Confirmed Last Taken metoprolol tartrate 25 mg tablet 25 mg PO BID #180 tabs 03/08/20 03/05/22 06/16/21 ferrous sulfate 325 mg (65 mg 325 mg PO BID 08/17/20 03/05/22 06/16/21 iron) tablet (FeroSul) promethazine 25 mg tablet 25 mg PO TID PRN nausea and 09/07/21 03/05/22 Unknown vomiting #10 tabs hydroxyzine HCl 25 mg tablet 25 mg PO HS PRN as directed 02/05/22 03/05/22 Unknown norethindrone acetate 5 mg tablet 5 mg PO TID 5 days #15 tabs 03/04/22 03/05/22 Unknown (Aygestin) Active Medications Generic Name Dose Route Start Last Admin Trade Name Freq PRN Reason Stop Dose Admin Lactated Ringer's 1,000 mls @ 150 mls/hr 03/05/22 07:15 03/05/22 09:44 Lr IV 04/04/22 07:14 150 mls/hr .[id number] RAJAN Administration Estrogens Conjugated 25 mg/ 5 mls @ 1 mls/min 03/05/22 07:09 03/05/22 07:48 Syringe IV 04/04/22 07:08 1 mls/min Q6 RAJAN Administration Ibuprofen 600 mg 03/05/22 07:15 03/05/22 09:16 Ibuprofen 600 Mg Tab PO 04/04/22 07:14 Not Given Q6H RAJAN Ondansetron HCl 4 mg 03/05/22 07:04 03/05/22 09:44 Ondansetron Inj 2 Mg/Ml 2 Ml Vial IV 04/04/22 07:03 4 mg Q6H PRN Administration Nausea And Vomiting Past Medical History Medical History Anxiety SVT (supraventricular tachycardia) Past Family History Family History Other No pertinent family history Denies family history of Ovarian cancer Prostate cancer Myocardial infarction Breast cancer Colorectal cancer Past Surgical History Surgical History H/O tubal ligation Social History Smoking Status: Never smoker Hx Alcohol Use: No Hx Substance Use: No Physical Exam Vital Signs Last Vital Signs Temp 98.2 F 03/05/22 09:33 Pulse 124 H 03/05/22 09:33 Resp 20 03/05/22 09:33 BP 109/69 03/05/22 09:33 Pulse Ox 100 03/05/22 09:33 O2 Del Method 03/05/22 07:23 Testing Laboratory Results 03/05/22 04:48 03/05/22 04:48 PT 10.8 Seconds (9.0-12.0) 03/05/22 04:48 INR 1.0 (0.9-1.1) 03/05/22 04:48 APTT 21.9 Seconds (21.0-31.0) 03/05/22 04:48 Blood Type O Positive 03/05/22 05:21 Antibody Screen NEGATIVE 03/05/22 05:21 03/05/22 05:25 POC Glucose (other) 114 H Electrocardiogram Date: 03/05/22 Poor data quality, interpretation may be adversely affected Sinus tachycardia, rate 118 bpm Otherwise normal ECG When compared with ECG of 04-MAR-2022 10:55, (unconfirmed) No significant change was found Chest X-Ray Date: 03/04/22 Findings: + NAD
[2022-03-05] MEDS ORDERED: ceFAZolin 2000MG 2,000 MG/15 ML SYR IV ONE (10:17)
--- NOTE | 2022-03-05 10:29 | Gynecologic Progress Note ---
Date of Service March 05, 2022 Subjective I was called that she has been tachycardic and symptomatic with SOB, dizziness upon ambulation. VB has been heavy She has been changing pads all the time and passing large cloths 2nd unit of PRBC is running. She has known large 3x4 cm endometrial polyp vs submucosal fibroid since September of this year She was scheduled for hysteroscopy, excision and placement of IUD in [facility] and but had to cancel due to insurance changes She was admitted on January for VB and recommended to schedule it. She was scheduled again for 04/13/[address] Ward. Recommended surgical treatment with EUA, Hysteroscopy, Excision of polyp vs fibroid with Myosure and D&C today. Explained about surgery in details. She understands and signed an informed consent. All questions were answered. Results & Data ([facility]) Vital Signs (Past 12 Hours) Vital Signs Temp Pulse Resp BP Pulse Ox O2 Del Method 03/05/22 10:19 36.8 C 127 H 20 118/73 100 03/05/22 09:33 36.8 C 124 H 20 109/69 100 03/05/22 09:03 36.7 C 115 H 20 102/72 99 03/05/22 08:48 36.7 C 112 H 20 97/66 L 99 03/05/22 08:31 36.7 C 108 H 20 109/62 98 03/05/22 08:15 36.8 C 99 H 20 100/69 99 03/05/22 07:37 36.8 C 109 H 20 105/64 95 03/05/22 07:23 Room Air 03/05/22 07:23 Room Air 03/05/22 07:07 36.9 C 107 H 18 100/65 98 03/05/22 06:52 36.6 C 113 H 20 106/81 100 03/05/22 06:30 36.7 C 125 H 20 120/68 100 03/05/22 05:40 100 Room Air 03/05/22 05:11 36.7 C 97 H 16 95/59 L 98 Room Air
[2022-03-05] MEDS ORDERED: fentaNYL citrate 100 MCG/2 ML VIAL IV PRN (10:51)
[2022-03-05] MEDS ORDERED: ePHEDrine sulfate 50 MG/ML AMP IV PRN (10:51)
[2022-03-05] MEDS ORDERED: ATROPINE SULFATE 0.1 MG/ML 10ML SYR IV PRN (10:51)
[2022-03-05] MEDS: FERROUS SULFATE 325 MG TAB PO SCH ×2 (10:53→21:08)
--- NOTE | 2022-03-05 11:27 | Electrocardiogram Report ---
Test Reason : Blood Pressure : / mmHG Vent. Rate : 118 BPM Atrial Rate : 118 BPM P-R Int : 130 ms QRS Dur : 080 ms QT Int : 334 ms P-R-T Axes : 042 085 056 degrees QTc Int : 468 ms Poor data quality, interpretation may be adversely affected Sinus tachycardia Otherwise normal ECG When compared with ECG of 04-MAR-2022 10:55, HR has increased by 17 bpm Otherwise no significant change Confirmed by Pablo Godwin ([id number]) on 03/05/2022 11:27:34 AM Referred By: Alvino Griffin Confirmed By:Pablo Godwin
[2022-03-05] MEDS ORDERED: FERRIC SUBSULFATE 8 GM VIAL ONE (11:39)
[2022-03-05] MEDS ORDERED: SILVER NITR/POTASSIUM NITRATE APPLICATOR ONE (11:39)
[2022-03-05] MEDS ORDERED: PROPOFOL IV EMULSION 10 MG/ML 20 ML VIAL IV ONE (11:41)
[2022-03-05] MEDS ORDERED: ONDANSETRON INJ 2 MG/ML 2 ML VIAL ONE (11:41)
[2022-03-05] MEDS ORDERED: DEXAMETHASONE SOD INJ 4 MG/ML VIAL ONE (11:41)
[2022-03-05] MEDS ORDERED: LIDOCAINE 2% MPF LOCAL 5 ML VIAL INFIL ONE (11:41)
[2022-03-05] MEDS ORDERED: MIDAZOLAM HCL 1 MG/ML 2ML VIAL ONE (11:42)
[2022-03-05] MEDS ORDERED: fentaNYL citrate 100 MCG/2 ML VIAL ONE (11:42)
[2022-03-05] MEDS ORDERED: TRANEXAMIC ACID / 0.7% NACL 1000MG/100ML BAG IV ONE (12:22)
[2022-03-05] MEDS ORDERED: PROMETHAZINE HCL 25 MG in SODIUM CHLORIDE 0.9% 50 ML IV PRN (13:18)
[2022-03-05] MEDS ORDERED: KETOROLAC 30 MG/ML VIAL IV PRN (13:18)
[2022-03-05] MEDS ORDERED: MAGNESIUM HYDROXIDE SUSP 30 ML UDC PO PRN (13:18)
[2022-03-05] MEDS ORDERED: PHENYLEPHRINE 100MCG/ML 5ML SYR ONE (13:22)
[2022-03-05] MEDS ORDERED: METHYLERGONOVINE MALEATE 0.2 MG/ML AMP ONE (13:30)
--- NOTE | 2022-03-05 13:40 | Post Operative Brief Note ---
Immediate Post Op Note v1 Date of Surgery March 05, 2022 Pre & Post Diagnosis Operation Date: 03/05/22 10:55 Pre-Op Diagnosis: HMB, Endometrial polyp vs submucosal fibroid Post-Op Diagnosis: same I identified the patient and participated in the time-out.: Yes Procedure Operation Date: 03/05/22 10:55 Actual Procedures p Hysteroscopy, Excision of Endometrial fibroids vs. polyp with myosure, Dilation and Currettage(Not Applicable) - Silvestre Arreola MD Surgeon Silvestre Arreola MD Retail Shift Manager OR nurse Estimated Blood Loss 50 Findings Consistent with Post-Op Diagnosis Anesthesia Type General Complications none
[2022-03-05] MEDS ORDERED: PROMETHAZINE HCL INJ 25 MG/ML 1 ML VIAL ONE (14:16)
[2022-03-05 14:21] LABS: Hematocrit (blood only) 23.3 % (34.1-44.9); Hemoglobin 8.1 g/dl (12.0-16.0)
[2022-03-05] MEDS ORDERED: PROMETHAZINE HCL 6.25 MG in SODIUM CHLORIDE 0.9% 50 ML IV STA (14:27)
--- NOTE | 2022-03-05 14:46 | Anesthesiology Progress Note ---
Date of Service March 05, 2022 Anesthesia Post Procedure Vital Signs Vital Signs: Temp Pulse Pulse Resp BP BP Pulse Ox 03/05/22 14:25 115 H 19 110/68 100 03/05/22 14:15 97.2 F L 126 H 17 120/73 97 03/05/22 14:05 112 H 20 107/70 98 03/05/22 13:55 114 H 20 104/65 98 03/05/22 13:45 114 H 20 111/65 100 03/05/22 13:35 124 H 25 H 114/67 100 03/05/22 13:25 126 H 24 108/64 100 03/05/22 13:17 96.8 F L 123 H 16 107/62 100 03/05/22 11:19 99.3 F 122 H 20 107/78 100 03/05/22 10:50 99.3 F 134 H 20 101/71 100 03/05/22 10:46 98.1 F 130 H 20 126/81 98 03/05/22 10:34 98.2 F 124 H 18 115/74 98 03/05/22 10:19 98.2 F 127 H 20 118/73 100 03/05/22 09:33 98.2 F 124 H 20 109/69 100 03/05/22 09:03 98.1 F 115 H 20 102/72 99 03/05/22 08:48 98.1 F 112 H 20 97/66 L 99 03/05/22 08:31 98.1 F 108 H 20 109/62 98 03/05/22 08:15 98.2 F 99 H 20 100/69 99 03/05/22 07:37 98.2 F 109 H 20 105/64 95 03/05/22 07:23 03/05/22 07:23 03/05/22 07:07 98.4 F 107 H 18 100/65 98 03/05/22 06:52 97.9 F 113 H 20 106/81 100 03/05/22 06:30 98.1 F 125 H 20 120/68 100 03/05/22 05:40 100 03/05/22 05:11 98.1 F 97 H 16 95/59 L 98 O2 Del Method O2 Flow Rate 03/05/22 14:25 Room Air 03/05/22 14:15 Room Air 03/05/22 14:05 Room Air 03/05/22 13:55 Room Air 03/05/22 13:45 Room Air 03/05/22 13:35 Room Air 4 03/05/22 13:25 Oxymask 6 03/05/22 13:17 Oxymask 6 03/05/22 11:19 03/05/22 10:50 03/05/22 10:46 03/05/22 10:34 0 03/05/22 10:19 03/05/22 09:33 03/05/22 09:03 03/05/22 08:48 03/05/22 08:31 03/05/22 08:15 03/05/22 07:37 03/05/22 07:23 Room Air 03/05/22 07:23 Room Air 03/05/22 07:07 03/05/22 06:52 03/05/22 06:30 03/05/22 05:40 Room Air 03/05/22 05:11 Room Air Pain Intensity Abdomen: Pain Intensity: 3 Transfer of Care Handoff Completed per policy Notes Mental Status: alert / awake / arousable and participated in evaluation Patient Amnestic to Procedure: Yes Nausea / Vomiting: adequately controlled Pain: adequately controlled Airway Patency, RR, SpO2: stable & adequate BP & HR: stable & adequate Hydration State: stable & adequate Anesthetic Complications: no major complications apparent and Pt Satisfied with anesthetic care
[2022-03-05] MEDS ORDERED: hydrOXYzine HCl 25 MG TAB PO PRN (15:03)
[2022-03-05] MEDS ORDERED: PROMETHAZINE HCL 25 MG TAB PO PRN (15:03)
--- NOTE | 2022-03-05 15:16 | Gynecologic Progress Note ---
Date of Service March 05, 2022 Assessment & Plan Admission and Anticipated Discharge Date Admission Date: March 05, 2022 Subjective Postop check Patient is seen and examined Feels well, no complaints other than tired Pain is under control with meds No CP/ SOB/ Dizziness/ N&V/ VB/ Leg pain Not OOB yet Tolerating clears Explained about the surgery and findings Vital Signs Height Weight Body Mass Index Blood Pressure Blood Pressure Position Temperature Temperature Source 5 ft 3 in 61 kg 23.8 108/61 Semi-fowlers 36.8 C Oral 03/05/22 15:06 03/05/22 15:06 03/05/22 15:06 03/05/22 15:06 03/05/22 14:35 03/05/22 15:06 03/05/22 15:06 Pulse Rate Respiratory Rate Pulse Oximetry Oxygen Flow Rate 125 H 18 96 4 03/05/22 15:06 03/05/22 15:06 03/05/22 15:06 03/05/22 13:35 Lab Results 03/05/22 03/05/22 03/05/22 Range/Units 04:48 04:48 04:48 WBC 7.32 (4.8-10.8) K/ul RBC 2.21 L (3.93-5.22) M/uL Hgb 6.4 L* (12.0-16.0) g/dl POC Hgb (12.0-16.0) g/dl Hct 19.2 L* (34.1-44.9) % POC Hct (37-47) % MCV 86.9 (80.0-100.0) fL MCH 29.0 (25.0-34.0) pg MCHC 33.3 (32.0-36.0) g/dL RDW Std Deviation 39.3 (36.4-46.3) fL RDW Coeff of Rosalinda 12.4 (11.5-14.5) % Plt Count 264 (130-400) K/uL MPV 10.5 (9.4-12.3) fL Immature Gran % (Auto) 0.8 % Neut % (Auto) 58.2 % Lymph % (Auto) 30.9 % Evangeline % (Auto) 6.7 % Eos % (Auto) 3.1 % Baso % (Auto) 0.3 % Neut # (Auto) 4.26 (1.4-6.5) K/uL Lymph # (Auto) 2.26 (1.2-3.4) K/uL Evangeline # (Auto) 0.49 (0.24-0.82) K/uL Eos # (Auto) 0.23 (0-0.50) K/uL Baso # (Auto) 0.02 (0-0.2) K/uL Immature Gran # (Auto) 0.06 H (0.00-0.02) K/uL RBC Morphology Unremarkable PT 10.8 (9.0-12.0) Seconds INR 1.0 (0.9-1.1) APTT 21.9 (21.0-31.0) Seconds PTT Ratio 0.8 POC Sodium (135-144) mmol/L Sodium 135 L (136-145) mmol/L POC Potassium (3.3-5.0) mmol/L Potassium 3.7 (3.5-5.1) mmol/L POC Chloride (101-112) mmol/L Chloride 107 (98-107) mmol/L Carbon Dioxide 22 (21-32) mmol/L POC Total CO2 (24-31) mmol/L Anion Gap 6 (3-11) POC Anion Gap (16-25) mmol/L POC BUN (7-18) mg/dl BUN 28 H (6-23) mg/dl Creatinine 0.71 (0.6-1.2) mg/dl POC Creatinine (0.6-1.3) mg/dl Est Cr Clr Drug Dosing 92.4 ml/min Est GFR ( Amer) 128.8 ml/min Est GFR (Non-Af Amer) 111.1 ml/min BUN/Creatinine Ratio 39.4 H (10-20) Glucose 126 H (70-99(Fasting)) mg/dl POC Glucose (other) (70-99) mg/dl Calcium 8.0 L (8.5-10.1) mg/dl POC Ioniz Calcium Serina (1.12-1.32) mmol/l Total Bilirubin 0.2 (0.2-1.0) mg/dl AST 14 (13-39) U/L ALT 14 (7-52) U/L Alkaline Phosphatase 48 (34-104) U/L Total Protein 6.0 (6.0-8.3) gm/dl Albumin 3.5 (3.4-5.0) gm/dl Globulin 2.5 (2.5-4.0) gm/dl Albumin/Globulin Ratio 1.4 (0.9-2) HCG, Qual (Negative) SARS-CoV-2, RNA, NAAT (NEGATIVE) Blood Type Antibody Screen Crossmatch 03/05/22 03/05/22 03/05/22 Range/Units 04:48 05:21 05:25 WBC (4.8-10.8) K/ul RBC (3.93-5.22) M/uL Hgb (12.0-16.0) g/dl POC Hgb 5.8 L* (12.0-16.0) g/dl Hct (34.1-44.9) % POC Hct 17 L* (37-47) % MCV (80.0-100.0) fL MCH (25.0-34.0) pg MCHC (32.0-36.0) g/dL RDW Std Deviation (36.4-46.3) fL RDW Coeff of Rosalinda (11.5-14.5) % Plt Count (130-400) K/uL MPV (9.4-12.3) fL Immature Gran % (Auto) % Neut % (Auto) % Lymph % (Auto) % Evangeline % (Auto) % Eos % (Auto) % Baso % (Auto) % Neut # (Auto) (1.4-6.5) K/uL Lymph # (Auto) (1.2-3.4) K/uL Evangeline # (Auto) (0.24-0.82) K/uL Eos # (Auto) (0-0.50) K/uL Baso # (Auto) (0-0.2) K/uL Immature Gran # (Auto) (0.00-0.02) K/uL RBC Morphology PT (9.0-12.0) Seconds INR (0.9-1.1) APTT (21.0-31.0) Seconds PTT Ratio POC Sodium 139 (135-144) mmol/L Sodium (136-145) mmol/L POC Potassium 3.7 (3.3-5.0) mmol/L Potassium (3.5-5.1) mmol/L POC Chloride 106 (101-112) mmol/L Chloride (98-107) mmol/L Carbon Dioxide (21-32) mmol/L POC Total CO2 21 L (24-31) mmol/L Anion Gap (3-11) POC Anion Gap 17.0 (16-25) mmol/L POC BUN 24 H (7-18) mg/dl BUN (6-23) mg/dl Creatinine (0.6-1.2) mg/dl POC Creatinine 0.7 (0.6-1.3) mg/dl Est Cr Clr Drug Dosing ml/min Est GFR ( Amer) ml/min Est GFR (Non-Af Amer) ml/min BUN/Creatinine Ratio (10-20) Glucose (70-99(Fasting)) mg/dl POC Glucose (other) 114 H (70-99) mg/dl Calcium (8.5-10.1) mg/dl POC Ioniz Calcium Serina 1.13 (1.12-1.32) mmol/l Total Bilirubin (0.2-1.0) mg/dl AST (13-39) U/L ALT (7-52) U/L Alkaline Phosphatase (34-104) U/L Total Protein (6.0-8.3) gm/dl Albumin (3.4-5.0) gm/dl Globulin (2.5-4.0) gm/dl Albumin/Globulin Ratio (0.9-2) HCG, Qual Negative (Negative) SARS-CoV-2, RNA, NAAT (NEGATIVE) Blood Type O Positive Antibody Screen NEGATIVE Crossmatch See Detail 03/05/22 03/05/22 Range/Units 05:35 14:15 WBC (4.8-10.8) K/ul RBC (3.93-5.22) M/uL Hgb 8.1 L (12.0-16.0) g/dl POC Hgb (12.0-16.0) g/dl Hct 23.3 L (34.1-44.9) % POC Hct (37-47) % MCV (80.0-100.0) fL MCH (25.0-34.0) pg MCHC (32.0-36.0) g/dL RDW Std Deviation (36.4-46.3) fL RDW Coeff of Rosalinda (11.5-14.5) % Plt Count (130-400) K/uL MPV (9.4-12.3) fL Immature Gran % (Auto) % Neut % (Auto) % Lymph % (Auto) % Evangeline % (Auto) % Eos % (Auto) % Baso % (Auto) % Neut # (Auto) (1.4-6.5) K/uL Lymph # (Auto) (1.2-3.4) K/uL Evangeline # (Auto) (0.24-0.82) K/uL Eos # (Auto) (0-0.50) K/uL Baso # (Auto) (0-0.2) K/uL Immature Gran # (Auto) (0.00-0.02) K/uL RBC Morphology PT (9.0-12.0) Seconds INR (0.9-1.1) APTT (21.0-31.0) Seconds PTT Ratio POC Sodium (135-144) mmol/L Sodium (136-145) mmol/L POC Potassium (3.3-5.0) mmol/L Potassium (3.5-5.1) mmol/L POC Chloride (101-112) mmol/L Chloride (98-107) mmol/L Carbon Dioxide (21-32) mmol/L POC Total CO2 (24-31) mmol/L Anion Gap (3-11) POC Anion Gap (16-25) mmol/L POC BUN (7-18) mg/dl BUN (6-23) mg/dl Creatinine (0.6-1.2) mg/dl POC Creatinine (0.6-1.3) mg/dl Est Cr Clr Drug Dosing ml/min Est GFR ( Amer) ml/min Est GFR (Non-Af Amer) ml/min BUN/Creatinine Ratio (10-20) Glucose (70-99(Fasting)) mg/dl POC Glucose (other) (70-99) mg/dl Calcium (8.5-10.1) mg/dl POC Ioniz Calcium Serina (1.12-1.32) mmol/l Total Bilirubin (0.2-1.0) mg/dl AST (13-39) U/L ALT (7-52) U/L Alkaline Phosphatase (34-104) U/L Total Protein (6.0-8.3) gm/dl Albumin (3.4-5.0) gm/dl Globulin (2.5-4.0) gm/dl Albumin/Globulin Ratio (0.9-2) HCG, Qual (Negative) SARS-CoV-2, RNA, NAAT NEGATIVE (NEGATIVE) Blood Type Antibody Screen Crossmatch PE: General: Alert, orientedx3, NAD CVS: S1S2 RRR Lungs: CTAB Abd: soft, NT, ND, BS+, No VB Ext: NT, no edema, SCD's on AP: 36 yo female s/p EUA, Hysteroscopy, Polypectomy with Myosure, D&C , pod#0 VSS Afebrile doing well Continue to routine postop care Encourage PO intake, may ambulate d/c home tomorrow Results & Data ([facility]) Vital Signs (Past 12 Hours) Vital Signs Temp Pulse Pulse Resp BP BP Pulse Ox 03/05/22 15:06 36.8 C 125 H 18 108/61 96 03/05/22 14:35 122 H 20 110/67 98 03/05/22 14:25 115 H 19 110/68 100 03/05/22 14:15 36.2 C L 126 H 17 120/73 97 03/05/22 14:05 112 H 20 107/70 98 03/05/22 13:55 114 H 20 104/65 98 03/05/22 13:45 114 H 20 111/65 100 03/05/22 13:35 124 H 25 H 114/67 100 03/05/22 13:25 126 H 24 108/64 100 03/05/22 13:17 36 C L 123 H 16 107/62 100 03/05/22 11:19 37.4 C 122 H 20 107/78 100 03/05/22 10:50 37.4 C 134 H 20 101/71 100 03/05/22 10:46 36.7 C 130 H 20 126/81 98 03/05/22 10:34 36.8 C 124 H 18 115/74 98 03/05/22 10:19 36.8 C 127 H 20 118/73 100 03/05/22 09:33 36.8 C 124 H 20 109/69 100 03/05/22 09:03 36.7 C 115 H 20 102/72 99 03/05/22 08:48 36.7 C 112 H 20 97/66 L 99 03/05/22 08:31 36.7 C 108 H 20 109/62 98 03/05/22 08:15 36.8 C 99 H 20 100/69 99 03/05/22 07:37 36.8 C 109 H 20 105/64 95 03/05/22 07:23 03/05/22 07:23 03/05/22 07:07 36.9 C 107 H 18 100/65 98 03/05/22 06:52 36.6 C 113 H 20 106/81 100 03/05/22 06:30 36.7 C 125 H 20 120/68 100 03/05/22 05:40 100 03/05/22 05:11 36.7 C 97 H 16 95/59 L 98 O2 Del Method O2 Flow Rate 03/05/22 15:06 Room Air 03/05/22 14:35 Room Air 03/05/22 14:25 Room Air 03/05/22 14:15 Room Air 03/05/22 14:05 Room Air 03/05/22 13:55 Room Air 03/05/22 13:45 Room Air 03/05/22 13:35 Room Air 4 03/05/22 13:25 Oxymask 6 03/05/22 13:17 Oxymask 6 03/05/22 11:19 03/05/22 10:50 03/05/22 10:46 03/05/22 10:34 0 03/05/22 10:19 03/05/22 09:33 03/05/22 09:03 03/05/22 08:48 03/05/22 08:31 03/05/22 08:15 03/05/22 07:37 03/05/22 07:23 Room Air 03/05/22 07:23 Room Air 03/05/22 07:07 03/05/22 06:52 03/05/22 06:30 03/05/22 05:40 Room Air 03/05/22 05:11 Room Air
[2022-03-05] MEDS: oxyCODONE/ACETAMINOPHEN 5mg/325mg TAB PO PRN (17:15)
--- NOTE | 2022-03-05 20:00 | Operative Report (OR) ---
DATE OF SURGERY: 03/05/2022. PREOPERATIVE DIAGNOSES: The patient is a 36-year-old G3, P3-0-0-3 with history of heavy menstrual period, endometrial polyp versus submucosal fibroid, presenting with acute hemorrhage, anemia, requiring IV resuscitation and blood transfusion. POSTOPERATIVE DIAGNOSES: The patient is a 36-year-old G3, P3-0-0-3 with history of heavy menstrual period, endometrial polyp versus submucosal fibroid, presenting with acute hemorrhage, anemia, requiring IV resuscitation and blood transfusion, representing large submucosal fibroid. PROCEDURE: Exam under anesthesia, hysteroscopy, excision of endometrial polyp versus submucosal fibroid with MyoSure device and dilatation and curettage. SURGEON: Silvestre Arreola MD. PHYSICIAN PRACTICE MARKET MANAGER: OR nurse. ESTIMATED BLOOD LOSS: 50 mL. ANESTHESIA: General. ANESTHESIOLOGIST: Dr. Metcalf. COMPLICATIONS: None. FINDINGS: Exam under anesthesia revealed heavy vaginal bleeding and anteverted 8-week size uterus, nonpalpable adnexa. INTRAOPERATIVE FINDINGS: Cervix was normal and there was a protruding mass into the cervical canal, which appeared to be a large irregular calcified fibroid close to the lower uterine segment cervical junction area. About 3x4 cm. Upper endometrium, uterine cavity, normal. Bilateral tubal ostia normal DESCRIPTION OF PROCEDURE: The patient was taken to the operating room where general anesthesia was given without difficulty. She was placed in dorsal lithotomy position, prepared and draped in the usual sterile fashion. When she was prepped, she was still passing blood clots on to the floor. Examination under anesthesia was done with the above findings. A speculum was placed in the patient's vagina. Cervix was visualized, grasped with single tooth tenaculum. It was dilated with Hegar dilators, but it was about 1 cm dilated already. A hysteroscope was introduced from cervix, we came across with the tip of a mass in the endocervix originating from lower uterine segment and cervix junction, I was unable to go around it. MyoSure was introduced and started to cut this mass lesion with the MyoSure under direct visualization of the scope. I got about half of it and then I was able to go around it and then saw the upper uterine segment endometrial cavity to be normal with normal endometrium, no lesions, no thickening. The bilateral tubal ostia were normal. Then MyoSure was continued. We came across with thick calcified portion of this fibroid like mass and then MyoSure hysteroscope was removed. I used a polyp forceps, grasped it and turned around clockwise direction and then the rest of the lesion was removed with the polyp forceps. Then, I introduced the hysteroscope and the MyoSure again. The base had tiny pieces, those were also removed, cleaned completely with the tip of MyoSure device. The entire uterine cavity was normal and no bleeding noted. Internal os, lower uterine segment, cervical canal appeared to be normal. Then, hysteroscope was removed and a small sharp curette was used to curette the entire uterine cavity until uterine cry sensation was noted. Those tissues were sent to the pathology as endometrial curettings and the procedure was ended. All instruments were removed from the patient's vagina. The uterus was massaged and emptied of extra water from the uterine cavity, and the deficit was 300 mL. The blood loss during surgery was minimal. She lost the blood in the ER and during preparation for surgery. She was cleaned, dried, taken out from lithotomy position. She was taken to the recovery room in stable condition. She received a total of 3 units of packed red blood cell and IV albumin and IV lactated Ringer's, which were controlled by anesthesia team. She also received 2 g of cefazolin before surgery. No complications happened and I was present during the whole procedure. Job ID: [id number] [facility] HOSPITALBeatrice
[2022-03-05 20:12] LABS: Hematocrit (blood only) 20.4 % (34.1-44.9); Hemoglobin 7.1 g/dl (12.0-16.0); Mean Corpuscular Hemoglobin 29.6 pg (25.0-34.0); Mean Corpuscular Hgb Conc 34.8 g/dL (32.0-36.0); Platelet Count 212 K/uL (130-400); RDW Coefficient of Variation 13.5 % (11.5-14.5); RDW Standard Deviation 41.5 fL (36.4-46.3); White Blood Count 7.72 K/ul (4.8-10.8)
[2022-03-05 20:27] LABS: Basophils # (auto) 0.01 K/uL (0-0.2); Basophils % (auto) 0.1 %; Hypochromasia Present; Immature Granulocytes # (auto) 0.09 K/uL (0.00-0.02); Immature Granulocytes % (auto) 1.2 %; Lymphocytes % (auto) 14.2 %; Monocytes # (auto) 0.11 K/uL (0.24-0.82); Monocytes % (auto) 1.4 %; Neutrophils # (auto) 6.41 K/uL (1.4-6.5); Neutrophils % (auto) 83.1 %
[2022-03-05] MEDS ORDERED: NON-FORMULARY MEDICATION (Ferrous Sulfate [Ferosul] 325 mg (65 mg iron) tablet) PO SCH (21:00)
[2022-03-05] MEDS: METOPROLOL TARTRATE 25 MG TAB PO SCH (21:08)
[2022-03-06] MEDS ORDERED: METOPROLOL TARTRATE 25 MG TAB PO STA (00:51)
--- NOTE | 2022-03-06 00:54 | Gynecologic Progress Note ---
Date of Service March 06, 2022 Assessment & Plan Admission and Anticipated Discharge Date Admission Date: March 05, 2022 Subjective Patient feels much better. Has been up and using the bathroom without d izziness. Second hemoglobin after surgery came back at 7.1, ordered 2 more units of packed red blood cell which are being given now. Tachycardia resolved still has low blood pressures, metoprolol has been held. I spoke with hospitalist on-call Dr. Berrios and he agreed. Discussed about surgery and findings, recommended to continue with iron and Mirena insertion in 2 weeks. Continue to monitor closely. Repeat CBC in a.m. after blood transfusions, All questions were answered. DC home after breakfast. Results & Data ([facility]) Vital Signs (Past 12 Hours) Vital Signs Temp Pulse Pulse Resp BP BP Pulse Ox 03/06/22 00:43 36.7 C 79 14 100/64 99 03/06/22 00:28 36.9 C 77 12 95/55 L 98 03/06/22 00:28 36.9 C 77 12 95/55 L 98 03/06/22 00:00 03/05/22 23:51 36.9 C 64 14 95/58 L 99 03/05/22 23:14 76 03/05/22 23:10 36.6 C 86 18 95/62 L 99 03/06/22 00:10 36.9 C 64 12 95/58 L 99 03/05/22 23:47 36.8 C 75 12 96/62 L 99 03/05/22 22:47 36.8 C 75 15 95/54 L 99 03/05/22 22:17 37.0 C 76 14 97/57 L 99 03/05/22 22:02 37.0 C 76 14 100/58 L 98 03/05/22 21:44 36.8 C 80 14 96/57 L 92 03/05/22 21:09 97/55 L 03/05/22 18:47 37.5 C 83 18 98/60 L 100 03/05/22 18:45 108 H 03/05/22 17:12 37.5 C 93 H 20 109/75 95 03/05/22 16:12 36.7 C 15 L 20 104/69 100 03/05/22 16:00 03/05/22 15:57 36.8 C 116 H 22 113/70 100 03/05/22 15:42 36.9 C 105 H 22 101/67 99 03/05/22 15:27 36.9 C 103 H 20 104/69 100 03/05/22 15:06 36.8 C 125 H 18 108/61 96 03/05/22 14:35 122 H 20 110/67 98 03/05/22 14:25 115 H 19 110/68 100 03/05/22 14:15 36.2 C L 126 H 17 120/73 97 03/05/22 14:05 112 H 20 107/70 98 03/05/22 13:55 114 H 20 104/65 98 03/05/22 13:45 114 H 20 111/65 100 03/05/22 13:35 124 H 25 H 114/67 100 03/05/22 13:25 126 H 24 108/64 100 03/05/22 13:17 36 C L 123 H 16 107/62 100 Pulse Ox O2 Del Method O2 Del Method O2 Flow Rate 03/06/22 00:43 03/06/22 00:28 03/06/22 00:28 03/06/22 00:00 99 Room Air 03/05/22 23:51 03/05/22 23:14 03/05/22 23:10 Room Air 03/06/22 00:10 03/05/22 23:47 03/05/22 22:47 03/05/22 22:17 03/05/22 22:02 03/05/22 21:44 03/05/22 21:09 03/05/22 18:47 Room Air 03/05/22 18:45 03/05/22 17:12 03/05/22 16:12 Room Air 03/05/22 16:00 100 Room Air 03/05/22 15:57 03/05/22 15:42 Room Air 03/05/22 15:27 Room Air 03/05/22 15:06 Room Air 03/05/22 14:35 Room Air 03/05/22 14:25 Room Air 03/05/22 14:15 Room Air 03/05/22 14:05 Room Air 03/05/22 13:55 Room Air 03/05/22 13:45 Room Air 03/05/22 13:35 Room Air 4 03/05/22 13:25 Oxymask 6 03/05/22 13:17 Oxymask 6
--- NOTE | 2022-03-06 02:24 | Consultation Report ---
DATE OF CONSULTATION: 03/06/2022. CHIEF COMPLAINT: The patient is status post surgery. The patient presents with heavy menstrual period, causing symptomatic anemia, status post endometrial polyp versus submucosal fibroid, status post surgery requiring multiple PRBC transfusions. The patient has a history of SVT and her blood pressures are soft. The patient is worried about holding the metoprolol. HISTORY OF PRESENT ILLNESS: This is a 36-year-old female with past medical history significant for uterine leiomyoma, menorrhagia with regular cycles, history of SVT. She presents with heavy menstrual bleeding, symptomatic anemia, status post questionable endometrial polyp versus fibroid, status post surgery, requiring prbc transfusion, currently getting her blood transfusion and also on fluids, Ringer's lactate. The patient is alert and oriented. She says she is feeling skipping of her heart beats and states she did not take her metoprolol today and was worried about going into SVTs. Initially systolic blood pressure was in the 90s; by the time of my examination, blood pressure improved to 100/64. The patient denies any headache. No blurred visions. No cough. No feeling hot or cold. Denies any chest pain, no shortness of breath, has some pain at surgical site. Currently, hemodynamically stable. ALLERGIES: DICYCLOMINE. PAST MEDICAL HISTORY: As mentioned above. PAST SURGICAL HISTORY: x3, ligation of oviducts, today's surgery for heavy menstrual bleeding. MEDICATIONS: Metoprolol 25 mg p.o. b.i.d., promethazine 25 mg p.o. t.i.d. p.r.n., hydroxyzine 25 mg p.o. at bedtime p.r.n., ferrous sulfate 325 mg p.o. b.i.d., Aygestin 5 mg p.o. t.i.d. FAMILY HISTORY: Significant for mother has hypertension, lung cancer; maternal grandmother has hypertension, diabetes; maternal grandfather has heart disorder; paternal grandmother has heart disorder. SOCIAL HISTORY: No smoking, no alcohol, no drug use as per records. REVIEW OF SYSTEMS: As per HPI. Rest of the review of systems is negative. PHYSICAL EXAMINATION: GENERAL: The patient is of moderate build, not in acute distress. VITAL SIGNS: Temperature 36.7, pulse 79, respiratory rate 14, blood pressure 100/64, oxygen 99% on room air. HEENT: Atraumatic. No facial droop. NECK: No neck masses seen. CARDIOVASCULAR: S1 and S2 heard. Regular rate and rhythm. No murmur, no gallop. RESPIRATORY SYSTEM: Normal AP diameter. No accessory muscle use. No wheezing, no crackles. ABDOMEN: Soft, bowel sounds sluggish. No distention. CENTRAL NERVOUS SYSTEM: Alert and oriented. Speech is clear. No facial droop. Insight is good. Obeys simple commands. Moves extremities. EXTREMITIES: No edema, no erythema. LABORATORY DATA: Done on 03/05/2022, WBC 7.7, hemoglobin 7.1, hematocrit 20.4, platelets 212. PT 10.9, INR 1, APTT 21.9. Sodium 135, potassium 3.7, chloride 107, CO2 of 22, BUN 28, creatinine 0.7, serum glucose 126, calcium 8, ionized calcium 1.13, total bilirubin 0.2, AST 14, ALT 14, alkaline phosphatase 48, total protein 6. HCG qualitative negative. SARS-CoV-2 rapid test negative. EKG: Sinus tachycardia at a rate of 118 on the EKG on 03/05/2022. ASSESSMENT AND PLAN: This is a 36-year-old female with history of SVT, presents with heavy menstrual bleeding status post surgery. 1. Heavy menstrual bleeding: Possible endometrial polyp versus fibroid, status post surgery,on fluids and getting PRBC transfusions. Postop management as per CONTROL SUPERVISOR. 2. Symptomatic anemia from above: Getting PRBC transfusion. Follow the repeat labs in the a.m. 3. History of SVT: She is on metoprolol 25 mg b.i.d., metoprolol was held because of systolic blood pressure in the 90s and the patient is worried about going into SVT, but the blood pressure is improved now. We are going to give one dose of metoprolol and monitor the blood pressure and heart rates.Expecting Blood pressures to improve with fluids and prbc transfusion. 4. Deep venous thrombosis prophylaxis.Scds DISPOSITION: As per CONTROL SUPERVISOR. Job ID: [id number] MTDD
[2022-03-06] MEDS: oxyCODONE/ACETAMINOPHEN 5mg/325mg TAB PO PRN (06:27)
[2022-03-06] MEDS: LACTATED RINGER'S 1,000 ML IV SCH ×2 (07:12→09:26)
[2022-03-06 08:14] LABS: Basophils # (auto) 0.03 K/uL (0-0.2); Basophils % (auto) 0.4 %; Eosinophils # (auto) 0.01 K/uL (0-0.50); Eosinophils % (auto) 0.1 %; Hematocrit (blood only) 23.8 % (34.1-44.9); Hemoglobin 8.4 g/dl (12.0-16.0); Immature Granulocytes # (auto) 0.08 K/uL (0.00-0.02); Mean Corpuscular Hemoglobin 29.4 pg (25.0-34.0); Mean Corpuscular Hgb Conc 35.3 g/dL (32.0-36.0); Mean Corpuscular Volume 83.2 fL (80.0-100.0); Mean Platelet Volume 10.3 fL (9.4-12.3); Monocytes # (auto) 0.79 K/uL (0.24-0.82); Monocytes % (auto) 9.9 %; Neutrophils # (auto) 4.73 K/uL (1.4-6.5); Neutrophils % (auto) 59.6 %; Platelet Count 180 K/uL (130-400); RDW Coefficient of Variation 13.6 % (11.5-14.5); RDW Standard Deviation 41.1 fL (36.4-46.3); Red Blood Count 2.86 M/uL (3.93-5.22); White Blood Count 7.94 K/ul (4.8-10.8)
[2022-03-06] MEDS: FERROUS SULFATE 325 MG TAB PO SCH (08:40)
[2022-03-06] MEDS: METOPROLOL TARTRATE 25 MG TAB PO SCH (09:17)
--- NOTE | 2022-03-06 10:22 | Gynecologic Progress Note ---
Date of Service March 06, 2022 Assessment & Plan Admission and Anticipated Discharge Date Admission Date: March 05, 2022 Subjective doing well. no vaginal bleeding or pain. OOB and tolerating diet well Physical Exam Constitutional: WD/WN, vitals as above Gastrointestinal (Abdomen): Inspection/Auscultation: abdomen normal to inspection Percussion/Palpation: abdomen soft no mass or gurading Musculoskeletal: Extremities: extremities normal to inspection Skin: no rashes, warm and dry Neurologic: patellar DTR's 2+ bilat, sensation intact Psychiatric: A+Ox3, euthymic affect Results & Data ([facility]) Vital Signs (Past 12 Hours) Vital Signs Temp Pulse Pulse Resp BP BP Pulse Ox 03/06/22 07:13 78 03/06/22 07:10 36.6 C 87 16 97/61 L 99 03/06/22 03:00 36.7 C 60 16 91/48 L 98 03/06/22 02:13 36.7 C 73 12 92/49 L 99 03/06/22 01:13 36.7 C 75 12 94/57 L 99 03/06/22 00:43 36.7 C 79 14 100/64 99 03/06/22 00:28 36.9 C 77 12 95/55 L 98 03/06/22 00:28 36.9 C 77 12 95/55 L 98 03/06/22 00:00 03/05/22 23:51 36.9 C 64 14 95/58 L 99 03/05/22 23:14 76 03/05/22 23:10 36.6 C 86 18 95/62 L 99 03/06/22 00:10 36.9 C 64 12 95/58 L 99 03/05/22 23:47 36.8 C 75 12 96/62 L 99 03/05/22 22:47 36.8 C 75 15 95/54 L 99 Pulse Ox O2 Del Method O2 Del Method 03/06/22 07:13 03/06/22 07:10 Room Air 03/06/22 03:00 Room Air 03/06/22 02:13 03/06/22 01:13 03/06/22 00:43 03/06/22 00:28 03/06/22 00:28 03/06/22 00:00 99 Room Air 03/05/22 23:51 03/05/22 23:14 03/05/22 23:10 Room Air 03/06/22 00:10 03/05/22 23:47 03/05/22 22:47 Laboratory Results 03/05/22 03/05/22 03/05/22 04:48 04:48 04:48 WBC 7.32 RBC 2.21 L Hgb 6.4 L* POC Hgb Hct 19.2 L* POC Hct MCV 86.9 MCH 29.0 MCHC 33.3 RDW Std Deviation 39.3 RDW Coeff of Rosalinda 12.4 Plt Count 264 MPV 10.5 Immature Gran % (Auto) 0.8 Neut % (Auto) 58.2 Lymph % (Auto) 30.9 Hemphill % (Auto) 6.7 Eos % (Auto) 3.1 Baso % (Auto) 0.3 Neut # (Auto) 4.26 Lymph # (Auto) 2.26 Hemphill # (Auto) 0.49 Eos # (Auto) 0.23 Baso # (Auto) 0.02 Immature Gran # (Auto) 0.06 H RBC Morphology Unremarkable Hypochromasia PT 10.8 INR 1.0 APTT 21.9 PTT Ratio 0.8 POC Sodium Sodium 135 L POC Potassium Potassium 3.7 POC Chloride Chloride 107 Carbon Dioxide 22 POC Total CO2 Anion Gap 6 POC Anion Gap POC BUN BUN 28 H Creatinine 0.71 POC Creatinine Est Cr Clr Drug Dosing 92.4 Est GFR ( Amer) 128.8 Est GFR (Non-Af Amer) 111.1 BUN/Creatinine Ratio 39.4 H Glucose 126 H POC Glucose (other) Calcium 8.0 L POC Ioniz Calcium Serina Total Bilirubin 0.2 AST 14 ALT 14 Alkaline Phosphatase 48 Total Protein 6.0 Albumin 3.5 Globulin 2.5 Albumin/Globulin Ratio 1.4 HCG, Qual SARS-CoV-2, RNA, NAAT Blood Type Antibody Screen Crossmatch 03/05/22 03/05/22 03/05/22 04:48 05:21 05:25 WBC RBC Hgb POC Hgb 5.8 L* Hct POC Hct 17 L* MCV MCH MCHC RDW Std Deviation RDW Coeff of Rosalinda Plt Count MPV Immature Gran % (Auto) Neut % (Auto) Lymph % (Auto) Hemphill % (Auto) Eos % (Auto) Baso % (Auto) Neut # (Auto) Lymph # (Auto) Hemphill # (Auto) Eos # (Auto) Baso # (Auto) Immature Gran # (Auto) RBC Morphology Hypochromasia PT INR APTT PTT Ratio POC Sodium 139 Sodium POC Potassium 3.7 Potassium POC Chloride 106 Chloride Carbon Dioxide POC Total CO2 21 L Anion Gap POC Anion Gap 17.0 POC BUN 24 H BUN Creatinine POC Creatinine 0.7 Est Cr Clr Drug Dosing Est GFR ( Amer) Est GFR (Non-Af Amer) BUN/Creatinine Ratio Glucose POC Glucose (other) 114 H Calcium POC Ioniz Calcium Serina 1.13 Total Bilirubin AST ALT Alkaline Phosphatase Total Protein Albumin Globulin Albumin/Globulin Ratio HCG, Qual Negative SARS-CoV-2, RNA, NAAT Blood Type O Positive Antibody Screen NEGATIVE Crossmatch See Detail 03/05/22 03/05/22 03/05/22 05:35 14:15 19:51 WBC 7.72 RBC 2.40 L Hgb 8.1 L 7.1 L POC Hgb Hct 23.3 L 20.4 L* POC Hct MCV 85.0 MCH 29.6 MCHC 34.8 RDW Std Deviation 41.5 RDW Coeff of Rosalinda 13.5 Plt Count 212 MPV 10.0 Immature Gran % (Auto) 1.2 Neut % (Auto) 83.1 Lymph % (Auto) 14.2 Hemphill % (Auto) 1.4 Eos % (Auto) 0.0 Baso % (Auto) 0.1 Neut # (Auto) 6.41 Lymph # (Auto) 1.10 L Hemphill # (Auto) 0.11 L Eos # (Auto) 0.00 Baso # (Auto) 0.01 Immature Gran # (Auto) 0.09 H RBC Morphology Hypochromasia Present PT INR APTT PTT Ratio POC Sodium Sodium POC Potassium Potassium POC Chloride Chloride Carbon Dioxide POC Total CO2 Anion Gap POC Anion Gap POC BUN BUN Creatinine POC Creatinine Est Cr Clr Drug Dosing Est GFR ( Amer) Est GFR (Non-Af Amer) BUN/Creatinine Ratio Glucose POC Glucose (other) Calcium POC Ioniz Calcium Serina Total Bilirubin AST ALT Alkaline Phosphatase Total Protein Albumin Globulin Albumin/Globulin Ratio HCG, Qual SARS-CoV-2, RNA, NAAT NEGATIVE Blood Type Antibody Screen Crossmatch 03/06/22 07:31 WBC 7.94 RBC 2.86 L Hgb 8.4 L POC Hgb Hct 23.8 L POC Hct MCV 83.2 MCH 29.4 MCHC 35.3 RDW Std Deviation 41.1 RDW Coeff of Rosalinda 13.6 Plt Count 180 MPV 10.3 Immature Gran % (Auto) 1.0 Neut % (Auto) 59.6 Lymph % (Auto) 29.0 Hemphill % (Auto) 9.9 Eos % (Auto) 0.1 Baso % (Auto) 0.4 Neut # (Auto) 4.73 Lymph # (Auto) 2.30 Hemphill # (Auto) 0.79 Eos # (Auto) 0.01 Baso # (Auto) 0.03 Immature Gran # (Auto) 0.08 H RBC Morphology Hypochromasia PT INR APTT PTT Ratio POC Sodium Sodium POC Potassium Potassium POC Chloride Chloride Carbon Dioxide POC Total CO2 Anion Gap POC Anion Gap POC BUN BUN Creatinine POC Creatinine Est Cr Clr Drug Dosing Est GFR ( Amer) Est GFR (Non-Af Amer) BUN/Creatinine Ratio Glucose POC Glucose (other) Calcium POC Ioniz Calcium Serina Total Bilirubin AST ALT Alkaline Phosphatase Total Protein Albumin Globulin Albumin/Globulin Ratio HCG, Qual SARS-CoV-2, RNA, NAAT Blood Type Antibody Screen Crossmatch
--- NOTE | 2022-03-13 12:22 | Discharge Summary (DS) ---
DATE OF ADMISSION: 03/05/2022 DATE OF DISCHARGE: 03/07/2022 REASON FOR ADMISSION AND HOSPITAL COURSE: The patient is a 36-year-old female, para 3-0-0-3, with on going vaginal bleeding. The patient had symptomatic anemia. She had passed large amounts of clots. She was admitted from the ER and given several units of blood. The patient subsequently had an ultr asound revealing a mass in the uterus. She was taken to the OR where Dr. Madrigal removed either a po lypoid or fibroid hysteroscopically. This was removed without difficulty. The patient was subsequen tly discharged on 03/06/2022 in stable condition. Home going instructions were given. CONDITION ON DISCHARGE: Stable MEDICATIONS: Include iron and Motrin for pain and follow up in the office in one week. Regular diet on discharge. Job ID: [id number]
== END 2022-03-06 11:55 | disposition home or self-care (01) | DRG 744 ==
LOC: ED 05:04 → ASU 11:46 → 2S 13:13

== ENCOUNTER 2024-08-01 08:06 | Observation (INO) ==
--- NOTE | 2024-07-29 08:40 | Anesthesiology Consultation ---
Date of Service July 29, 2024 Assessment & Plan (1) Encounter for health maintenance examination: - Check test DOS - Infectious disease screening: Per assessment on 07/17/24- No known recent infectious disease contacts or current infectious disease symptoms. - EP/cardio visit (10/30/23): "Pt seen in annual EP f/u due to arrhythmias and ectopy.. Did not tolerate verapmail or atenolol but is doing well with meto prolol.. Ok to take extra metoprolol.. EP f/u 1 year" Chart Review Chart Review: Acceptable Risk for Surgery (pending evaluation DOS) and Patient NOT seen in Pre Admission Testing History Surgery Operation Date: 08/01/24 07:00 Proposed Procedures p Total Laparoscopic Hysterectomy, Bilateral Salpingectomy, Cystoscopy - Colton Ward MD Height/Weight Height: 5 ft 3 in Weight: 79.379 kg Allergies Allergy/AdvReac Type Severity Reaction Status Date / Time dicyclomine Allergy Intermediate hives, Verified 07/17/24 11:55 extremity swelling Medications Home Medications Medication Instructions Recorded Confirmed Last Taken metoprolol tartrate 25 mg tablet 25 mg PO AMPM 05/20/22 07/17/24 03/04/24 25 escitalopram oxalate 5 mg tablet 5 mg PO DAILY #90 tabs 04/18/24 07/17/24 Unknown Past Medical History Medical History Anxiety Dysfunctional uterine bleeding History of anemia Last iron infusion ~02/2024 History of COVID-19 (02/2020) Resolved History of rib fracture After mechanical fall > Ribs with CXR 04/14/24: Acute to subacute nondisplaced 10th rib fracture. There is no evidence of displaced rib fracture or rib lesion. Notes rare nighttime episodes of pain in certain positions but otherwise pain-free, states "All healed up" Hx of supraventricular tachycardia No recent episodes/issues Tachycardia Controlled with meds Follows with Dr. Adkins Past Family History Family History Other No pertinent family history Denies family history of Ovarian cancer Prostate cancer Myocardial infarction Breast cancer Colorectal cancer Past Surgical History Surgical History H/O section H/O tubal ligation History of dilatation and curettage Hysteroscopy, excision of endometrial polyp versus submucosal fibroid with MyoSure device and dilatation and curettage Social History Smoking Status: Never smoker Do You Dip or Chew Tobacco: No Hx Alcohol Use: Yes alcohol intake frequency: holidays/special occasions only Hx Substance Use: No substance use type: does not use Testing Laboratory Results 07/28/24 WBC 7.32 H/H 12.5/36.8 PLATELETS 278 Electrocardiogram Date: 03/03/24 Findings: + NSR @ (87)
[~2024-08-01 08:06] MED LIST changes: +DEXAMETHASONE SOD INJ 4 MG/ML VIAL ONE; -EPP3/2 IM; +GLYCOPYRROLATE 0.2 MG/ML VIAL ONE; +LIDOCAINE 2% 2 ML VIAL/AMP(20MG/ML) INFIL ONE; +MAGNESIUM CITRATE 296 ML/BTL PO SCH; +MIDAZOLAM HCL 1 MG/ML 2ML VIAL ONE; +ONDANSETRON INJ 2 MG/ML 2 ML VIAL ONE; +PROPOFOL IV EMULSION 10 MG/ML 20 ML VIAL IV ONE; +ROCURONIUM BROMIDE 10 MG/ML 5 ML VIAL IV ONE; +SUGAMMADEX SODIUM 200 MG/2 ML VIAL IV ONE; +fentaNYL citrate PF 100 MCG/2 ML VIAL ONE
[2024-08-01] MEDS: LACTATED RINGER'S 1,000 ML IV SCH ×2 (08:37→08:38)
[2024-08-01] MEDS ORDERED: HYDROmorphone INJ 2 MG/ML SYR/VIAL IV PRN (09:08)
[2024-08-01] MEDS ORDERED: ONDANSETRON INJ 2 MG/ML 2 ML VIAL IV PRN ×2 (09:08→13:05)
[2024-08-01] MEDS ORDERED: ATROPINE SULFATE 0.1 MG/ML 10ML SYR IV PRN (09:08)
[2024-08-01] MEDS ORDERED: PROMETHAZINE HCL 6.25 MG in SODIUM CHLORIDE 0.9% 50 ML IV PRN (09:08)
[2024-08-01] MEDS ORDERED: ePHEDrine sulfate 50 MG/ML AMP IV PRN (09:08)
--- OUTSIDE RECORDS SUMMARY | 2024-08-01 09:22 | External Medical Summary ---
Author Name Unknown Address Unknown Organization [id number]:[facility] [place] - [address] [place] [address] Laboratory Report Ordering Provider Test Date Status LUANNE NUÑEZ 05/02/2024 16:38:41 Final Observation Date Value Abnormality Reference (Units ) Status Ferritin 05/02/2024 16:38:41 67 13-150 (ng /mL) Final Performing Location [facility] [address] [facility] [place] [id number]
--- OUTSIDE RECORDS SUMMARY | 2024-08-01 09:22 | External Medical Summary | Summary of Care ---
Author Name Unknown Organization [facility] Address [address] [facility] [place] [address] Phone [phone] Care Team Providers Care Web Page Designer Name Role Phone Alvino Griffin MD Primary Care Provider [phone]- [phone] Reason for Visit * Reason Comments Pre-Op Testing Encounter Details Date Type Department Care Team (Late st Contact Info) Description 07/28/2024 12:30 PM EDT Office Visit Gynecology/Obstetric s Carloschristiano Christensen [address] [place] [address] Colton Ward MD [address] [place] [address] Submucous leiomyoma of uterus* Allergies Active Allergy Reactions Criticality Noted Date Comments Dicyclomine Hcl 11/01/2017 documented as of this encounter (statuses as of 07/28/2024) Medications Ibuprofen 600 MG Oral Tablet (Motrin) TAKE 1 TABLET BY MOUTH EVERY 6 HOURS NEEDED FOR FEVER OR PAIN 2 Active Escitalopram Oxalate 5 MG Oral Tablet (Lexapro) Take 1 Tablet by mouth in the morning. 3 Active Megestrol Acetate 40 MG Oral Tablet (Megace)Indicat ions:Menorrhagi a with regular cycle Take 1 Tablet by mouth in the morning and 1 Tablet at noon and 1 Tablet before bedtime. 60 Tablet 1 4 Active Additional Information Patient not taking.Reported on 07/28/2024 Tranexamic Acid 650 MG Oral Tablet take 1 tablet by mouth three times daily 30 Tablet 1 03/13/2024 4:39 PM EST 4 Active Additional Information Patient not taking.Reported on 07/28/2024 Metoprolol Tartrate 25 MG Oral Tablet (Lopressor) Take 1 Tablet by mouth in the morning and 1 Tablet before bedtime. 180 Tablet 3 4 Active Magnesium Citrate Oral Solution Take 296 ml solution 5 PM the night before surgery 300 mL 5 Active Hospital, Clinic, or Other Facility Administered Medication Ordered Dose Route Frequency Start Date End Date Status medroxyPROGESTERone (contracep) (Depo-Provera) inj 150 mgIndications:Postoperative state,Menorrhagia with regular cycle 150 mg IM [id number] 03/27/2024 Active documented as of this encounter (statuses as of 07/28/2024) Active Problems Problem Noted Date Diagnosed Date Iron deficiency anemia due to chronic blood loss 05/08/2022 Menorrhagia with regular cycle 02/23/2022 Uterine leiomyoma 02/23/2022 Advanced directives, counseling/discussion 04/27 Overview (03/09/2015): No, Advance Directive brochure offered, patient declined. documented as of this encounter (statuses as of 07/28/2024) Resolved Problems Problem Noted Date Diagnosed Date Resolved Date History of anemia 05/18/2015 09/21/2015 Overview (05/18/2015): Prior to this , history of severe anemia, Hemoglobin of 6-7. Saw hematology at [facility], started on iron TID. Has requested CBC every three months, no f/u scheduled unless H/H low. Will check CBC here now. Medication exposure during f irst trimester of 04/27/2015 02/23/2022 First trimester screening 03/09/2015 Encounter for supervision of other normal 01/27/2015 09/21/2015 Overview (08/24/2015): Desires FTS Received Tdap 08/23/2015 Shannon Bustillo RN ICD-10 update of inactive term Previous section 01/27/2015 Overview (04/20/2015): History of 2 c/s. Desires repeat c/s with BTL Mitral valve prolapse 01/27/20152015 Overview (05/18/2015): Taking metoprolol, following with aquaculture and fisheries professor. MFM referral placed Per Dr. Sandoval: Recommend follow up ultrasound in 7 weeks for growth secondary to maternal metoprolol use. --> end of May, at about 27 wks EGA Secondary to travel considerations the patient requests that follow up ultrasounds be performed at a facility closer to her home. I informed her that there is no contraindication to doing so but she should discuss this wish with her primary OB care provider. documented as of this encounter (statuses as of 07/28/2024) Immunizations Name Administration Dates Next Due Seasonal Influenza, PF, 6 M & above, IM , (FluLaval or Fluzone) 02/12/2023,01/22/2020 TDAP (age 10 and older)(Boostrix) 08/23/2015 documented as of this encounter Social History Tobacco Use Types Packs/Day Years Used Date Smoking Tobacco: Never Smokeless Tobacco: Never Alcohol Use Standard Drinks/Week Comments No 0 (1 standard drink = 0.6 oz pur e alcohol) None Hunger Vital Sign Answer Date Recorded Within the past 12 months, y ou worried that your food would run out before you got the money to buy more. Never true 07/26/19 25 Within the past 12 months, t he food you bought just didn't last and you didn't have money to get more. Never true 07/25/2024 Childcare Answer Date Recorded Do you feel overwhelmed with taking care of a child, family member or friend? No 07/25/2024 Does your family need help f inding childcare? (Household - for ages 0-17 years) Not on file 07/25/2024 Clothing Answer Date Recorded Have you been unable to get clothing when it was really needed? No 07/25/2024 Is your family able to get c lothes or diapers when needed? (Household - for ages 0-17 years) Not on file 07/25/2024 Personal Safety Answer Date Recorded Do you feel unsafe or have concerns for your saf ety? No 07/25/2024 Do you have concerns for you r family's safety? (Household - for ages 0-17 years) Not on file 07/25/2024 Utilities Answer Date Recorded Do you have trouble paying y our heating, water, or electric bill? No 07/25/2024 Is your family able to pay t he heat, water, or electric bill? (Household - for ages 0-17 years) Not on file 07/25/2024 Does your family have access to good internet? (Household - for ages 0-17 years) Not on file 07/25/2024 Employment Status Answer Date Recorded Are you unemployed or without regular income? No 07/25/2024 Does the household have a [facility] source of income? (Household - for ages 0-17 years) Not on file 07/25/2024 Social Connections Answer Date Recorded How often do you feel lonely or isolated from th ose around you? Never 07/25/2024 Financial Resource Strain Answer Date R ecorded Do you have any trouble payi ng for your medications, or do you think you might in the future? No 07/25/2024 Does your family have troubl e paying for medicine? (Household - for ages 0-17 years) Not on file 07/25/2024 Transportation Needs Answer Date Record ed Do you have trouble getting a ride to medical visits or work? (Adult - for ages 18 years and over) Not on file 07/25/2024 Does your family have a hard time getting a ride to doctors visits? (Household - for ages 0-17 years) Not on file 07/25/2024 Has lack of transportation k ept you from medical appointments, meetings, work, or from getting things needed for daily living? Check all that apply. No 07/25/2024 Do you (or your family) have trouble finding or paying for a ride (transportation)? (Household - for ages 0-17 years) Not on file 07/25/2024 Housing Stability Answer Date Recorded Do you currently live in a s helter or have no steady place to sleep at night? No 07/25/2024 Do you think you are at risk of becoming homeless? (Adult - for ages 18 years and over) Not on file 07/25/2024 Does your family worry about paying for your home or becoming homeless? (Household - for ages 0-17 years) Not on file 0 07/25/2024 Are you homeless or worried that you might be in the future? No 07/25/2024 Are you (or your family) millicent eless or worried that you might be in the future? (Household - for ages 0-17 years) Not on file Food Insecurity Answer Date Recorded Within the past 12 months, y ou worried that your food would run out before you got the money to buy more. Never true 07/26/19 25 Within the past 12 months, t he food you bought just didn't last and you didn't have money to get more. Never true 07/25/2024 Do you need food for this week? 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 Not on file Not on file documented as of this encounter Last Filed Vital Signs Vital Sign Reading Time Taken Comments Blood Pressure 118/80 07/28/2024 12:21 PM EDT Pulse - - Temperature 36.7 °C (98.1 °F) 07/28/2024 12:21 PM E DT Respiratory Rate - - Oxygen Saturation - - Inhaled Oxygen Concentration - - Weight 81.2 kg (179 lb) 07/28/2024 12:21 PM EDT Height 160 cm (5' 3") 07/28/2024 12:21 PM EDT Body Mass Index 31.71 07/28/2024 12:21 PM EDT documented in this encounter Progress Notes * Colton Ward MD - 07/28/2024 12:39 PM EDT Pt here for preop History and physical examination done Consnet obtained documented in this encounter H&P Notes * Colton Ward MD - 07/28/2024 12:34 PM EDT Sergio Albert[address] [place] [address] Appt line [phone] Content; Patient is a 38-year-old . Status post history of fibroid and menorrhagia. Patient was seen in the ER with heavy bleeding bleeding was controlled she however several days later continued to have more bleeding and underwent emergency D and C with hysteroscopy. Patient has a known fibroid. Bleeding was so extensive patient required transfusion. This is the 2nd time patient has had her fibroid removed hysteroscopically. She continues to bleed from the fibroid. Patient is therefore made to proceed with hysterectomy. OB History Para Term AB Living 4 3 3 1 3 SAB IAB Ectopic Multiple Live Births 1 2 # Outcome Date GA Lbr Young/2nd Weight Sex Type Anes PTL Lv 4 Term 09/14/15 39w0d 3.5 kg (7 lb 11.5 oz) F CS-LTranv N CINDY Comments: Repeat Elective 3 SAB 10/24/13 7w0d AB, SP, 1 Comments: FOB#3, miscarriage 5 weeks, no D&C 2 Term 12/12/10 39w0d 3.685 kg (8 lb 2 oz) F CS-Unspec N Comments: FOB#2, uncomplicated, repeat section 1 Term 03/05/06 39w5d 3.374 kg (7 lb 7 oz) F CS-Unspec CINDY Comments: FOB#1; breech, Uncomplicated Obstetric Comments C/s x 3 Date Labor Sex Delivery Anesth Del Comments GA Length Weight Type Site Boarding Room Fixer History: Menstrual Index: // days. Denies h/o STDs and abnormal Paps. Her past medical/surgical histories and current medications are recorded in the electronic record. Past Surgical History: Procedure Laterality Date DELIVERY 2005 DELIVERY 2010 DELIVERY 09/14/2015 HYSTEROSCOPY W/BIOPSY AND/OR POLYPECTOMY W/WO D&C N/A 03/13/2024 HYSTEROSCOPY WITH BIOPSY AND/OR POLYPECTOMY WITH OR WITHOUT D&C performed by Colton Ward MD at OR [facility] LIGATE/CUT OVIDUCT(S) 09/14/2015 PELVIC EXAM UNDER ANESTHESIA, NOT LOCAL N/A 03/13/2024 PELVIC EXAMINATION UNDER ANESTHESIA performed by Colton Ward MD at OR [facility] REMOVE INTRAUTERINE DEVICE (IUD) N/A 03/13/2024 REMOVAL OF INTRAUTERINE DEVICE performed by Colton Ward MD at OR [facility] Family History Problem Relation Name Age of Onset Hypertension Mother Lung Disorder Mother Lung cancer No Known Problems Father Other (borderline personality disorder) Sister Depression Brother Diabetes Grandmother (Maternal) Hypertension Grandmother (Maternal) Heart Disorder Grandfather (Maternal) Heart Disorder Grandmother (Paternal) No Past Hx Daughter No Past Hx Daughter No Past Hx Daughter Hypertension Aunt (Unspecified) History Social History Socioeconomic History Marital status: Spouse name: Madhu Elder Number of children: 0 Years of education: 12 Highest education level: Not on file Occupational History 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 Carlos 03/13/23 Other Topics Concern Not on file Social History Narrative Not on file Social Needs Financial Resource Strain: Low Risk (07/25/2024) Financial Resource Strain Do you have any trouble paying for your medications, or do you think you might in the future? (Adult - for ages 18 years and over): No Does your family have trouble paying for medicine? (Household - for ages 0-17 years): Not on file Food Insecurity: No Food Insecurity (07/25/2024) Food Insecurity Worried About Running Out of Food in the Last Year: Never true Ran Out of Food in the Last Year: Never true Do you need food for this week? (Adult - for ages 18 years and over): No Transportation Needs: No Transportation Needs (07/25/2024) Transportation Needs Do you have trouble getting a ride to medical visits or work? (Adult - for ages 18 years and over):Not on file Does your family have a hard time getting a ride to doctors’ visits? (Household - for ages 0-17 years): Not on file Has lack of transportation kept you from medical appointments, meetings, work, or from getting things needed for daily living? Check all that apply. (Adult - for ages 18 years and over): No Do you (or your family) have trouble finding or paying for a ride (transportation)? (Household - for ages 0-17 years): Not on file Social Connections: Socially Integrated (07/25/2024) Social Connections How often do you feel lonely or isolated from those around you? (Adult - for ages 18 years and over): Never Housing Stability: Low Risk (07/25/2024) Housing Stability Do you currently live in a residential or have no steady place to sleep at night? (Adult - for ages 18 years and over): No Do you think you are at risk of becoming homeless? (Adult - for ages 18 years and over): Not on file Does your family worry about paying for your home or becoming homeless? (Household - for ages 0-17 years): Not on file Are you homeless or worried that you might be in the future? (Adult - for ages 18 years and over): No Are you (or your family) homeless or worried that you might be in the future? (Household - for ages0-17 years): Not on file Pelvic sono 12/11/2023 Narrative & Impression EXAM: US PELVIS TRANS-VAGINAL NON-OB - 12/11/2023 HISTORY: HMB, endometrial lesion at [facility], Fibroid vs polyp COMPARISON: Real-time trans abdominopelvic ultrasound was performed FINDINGS: LMP: 11/16/2023, day 26 of the cycle UTERUS: 10.6 cm x 5.8 cm x 7.3 cm MYOMETRIUM: Bulky, heterogeneous uterus. Status post and myomectomy, hypo echoic area in the anterior lower aspect of the uterus, 3.4 x 2 x 2.2 cm. ENDOMETRIUM: in thickness, within normal limits. IUD in the endometrial cavity RIGHT OVARY: 2.8 cm x 1.8 cm x 2.4 cm, 6.2 ml Unremarkable LEFT OVARY: 2.4 cm x 1.5 cm x 2.4 cm, 4.4 ml Unremarkable MISCELLANEOUS: No significant free fluid. IMPRESSION IMPRESSION: IUD within the endometrial cavity Hypoechoic area likely myomas/myomectomy site. Physical Exam: BP 118/80 | Temp 36.7 °C (98.1 °F) | Ht 1.6 m (5' 3") | Wt 81.2 kg (179 lb) | BMI 31.71 kg/m² | BSA 1.9 m² CV: S1, S2. Regular rate and Rhythm Lungs: Clear to auscultation bilaterally. Abdomen: Soft Extremities: Soft non tender calves bilaterally. A/P: 38 year old year old 1. Menorrhagia require blood transfusion 2. History of fibroid uterus. Fibroid has been removed hy hysteroscopically X 2. 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 Patient is agreeable to undergo total laparoscopic hysterectomy with bilateral salpingectomy. We have discussed the risk alternatives and complications of surgery including more surgery to correct complication,risk of anesthesia,infection,damage to internal organs and . We have also discussed the possibility that pt's present situation may not change. Pt is aware and wishes to proceed to surgery. Consent is signed Patient is scheduled for the following .Pt scheduled for the ff procedures 1. Total laparoscopic hysterectomy 2. Bilateral salpingectomy 3. Possible laparotomy 4. Possible cystoscopy Colton Ward MD 07/28/2024 12:34 PM documented in this encounter Nursing Notes * Myra Nelson LPN - 07/28/2024 12:21 PM EDT Pre-op 08/01/24 TLH, BS and cystoscopy documented in this encounter Plan of Treatment Upcoming Encounters Date Type Department Care Team (Late st Contact Info) Description 08/08/2024 9:00 AM EDT Laboratory Laboratory [address] [place], [place] [phone] [facility] [address] [place], [place] [address] 08/15/2024 3:30 PM EDT Office Visit Hematology/Oncology [facility] [address] [place] [phone] Fabi[facility] Craven [facility] [address] [facility] [place] [address] 08/18/2024 9:30 AM EDT Office Visit Gynecology/Obstetrics [facility] [address] [place] [address] Colton Ward MD [address] [place] [address] 11/04/2024 2:00 PM EDT Office Visit Cardiology, [facility] [address] [place] [phone] Keira Kimball CRNP [address] [address] 03/27/2025 10:00 AM EST Office Visit Gynecology/Obstetrics [facility] [address] [place] [address] Leela Eugene PA-C [address] [place] [address] Health Maintenance Due Date Last Done Comments Depression Screening 1999 Diabetes Screening 09/28/2023 09/27/2020, 0 09/26/2015, 09/23/2015 COVID-19 Vaccine ( season) 2023 DTap/Tdap Vaccines (3 - Td or Tdap) 08/22/2025 08/23/2015, 12/11/2014, 07/20/1992 Pap Smear 05/11/2026 05/11/2023, 0811/2019, 12/09/2019, Additional history exists Cervical Cancer Screening 05/11/2028 HPV/Co-Test 05/11/2028 05/11/2023 Influenza Vaccine (FLU shot) Completed , 02/14/2024, 02/12/2023, Additional history exists HPV (Gardasil) Vaccine Aged Out No lo nger eligible based on patient's age to complete this topic MENINGOCOCCAL (MENACTRA/MENVEO) Aged Out No longer eligible based on patient's age to complete this topic Meningitis B Vaccine (Bexsero/Trumemba) Aged Out No longer eligible based on patient's age to complete this topic Pneumococcal Vaccine: Pediatrics (0 to 5 Years) and At-Risk Patients (6 to 18 Years and 19+ Years) Aged Out No longer eligib le based on patient's age to complete this topic documented as of this encounter Medical Devices Not on filedocumented as of this encounter Procedures Procedure Name Priority Date/Time Associated Diagnosis Comments DIFFERENTIAL, AUTOMATED Routine 07/28/2024 12:55 PM EDT Submucous leiomyoma of uterus CBC Routine 07/28/2024 12:55 PM EDT Submucous leiomyoma of uterus CBC Routine 07/28/2024 12:55 PM EDT Submucous leiomyoma of uterus documented in this encounter Results * (ABNORMAL) DIFFERENTIAL, AUTOMATED (07/28/2024 12:55 PM EDT) WBC 7.32 4.00 - 10.80 K/uL 07/28/2024 1:40 PM EDT [facility] Neutrophils % 52.9 40.0 - 75.0 % 07/28/2024 1:40 PM EDT [facility] Lymphocytes % 29.6 18.0 - 42.0 % 07/28/2024 1:40 PM EDT [facility] Monocytes % 10.9 1.0 - 11.0 % 07/28/2024 1:40 PM EDT [facility] Eosinophils % 6.3(H) 0.0 - 6.0 % 07/28/2024 1:40 PM EDT [facility] Basophils % 0.3 0.0 - 2.0 % 07/28/2024 1:40 PM EDT [facility] Absolute Neutrophils 3.87 1.80 - 7.70 K/uL 07/28/2024 1:40 PM EDT [facility] Absolute Lymphocytes 2.17 1.00 - 4.80 K/ul 07/28/2024 1:40 PM EDT [facility] Absolute Monocytes 0.80 0.00 - 1.10 K/uL 07/28/2024 1:40 PM EDT [facility] Absolute Eosinophils 0.46 0.00 - 0.70 K/uL 07/28/2024 1:40 PM EDT [facility] Absolute Basophils 0.02 0.00 - 0.20 K/uL 07/28/2024 1:40 PM EDT [facility] Blood Venous blood specimen / Unknown Venipuncture / Unknown 07/28/2024 12:55 PM EDT 07/28/2024 12:55 PM EDT Colton Ward MD LAB BLOOD ORDERABLES Final Resul t [facility] [place] [address] * CBC (07/28/2024 12:55 PM EDT) [facility] WBC 7.32 4.00 - 10.80 K/uL 07/28/2024 1:40 PM EDT [facility] RBC 4.27 3.85 - 5.15 M/uL 07/28/2024 1:40 PM EDT [facility] HGB 12.5 12.0 - 15.3 g/dL 07/28/2024 1:40 PM EDT [facility] HCT 36.8 36.0 - 45.2 % 07/28/2024 1:40 PM EDT [facility] MCV 86.2 81.5 - 97.5 fL 07/28/2024 1:40 PM EDT [facility] MCH 29.3 27.0 - 34.0 pg 07/28/2024 1:40 PM EDT [facility] MCHC 34.0 32.0 - 36.0 g/dL 07/28/2024 1:40 PM EDT [facility] RDW 13.3 11.5 - 15.5 % 07/28/2024 1:40 PM EDT [facility] PLT 278 140 - 400 K/uL 07/28/2024 1:40 PM EDT [facility] MPV 9.9 6.6 - 11.1 fL 07/28/2024 1:40 PM EDT [facility] Blood Venous blood specimen / Unknown Venipuncture / Unknown 07/28/2024 12:55 PM EDT 07/28/2024 12:55 PM EDT us Colton Ward MD LAB BLOOD ORDERABLES Final Resul t [facility] [address] [place] [address] documented in this encounter Visit Diagnoses Diagnosis Submucous leiomyoma of uterus- Primary documented in this encounter Care Teams Web Page Designer Relationship Specialty Start Date End Date Pro, Alvino Davis MD [address] [place] [address] PCP - General Internal Medicine 09/27/20 documented as of this encounter
--- OUTSIDE RECORDS SUMMARY | 2024-08-01 09:22 | External Medical Summary | Summary of Care ---
Author Name Unknown Organization [facility] Address [address] [facility] [place] [address] Phone [phone] Care Team Providers Care Radio Time Salesperson Name Role Phone Alvino Griffin MD Primary Care Provider [phone]- [phone] Reason for Visit * Reason Comments Outpatient Testing Encounter Details Date Type Department Care Team (Late st Contact Info) Description 07/28/2024 1:00 PM EDT Laboratory Laboratory, [facility] [address] [place] [phone] [facility] [address] [place] [address] Arrived Allergies Active Allergy Reactions Criticality Noted Date [...] state,Menorrhagia with regular cycle 150 mg IM [id number] 03/27/2024 Active documented as of this encounter [...] anemia, Hemoglobin of 6-7. Saw hematology at [facility], started on iron TID. [...] 01/27/20152015 Overview (05/18/2015): Taking metoprolol, following with well puller head. MFM referral placed Per Dr. Sandoval: Recommend [...] No 07/25/2024 Does the household have a re gular source of income? (Household - for ages [...] on file documented as of this encounter Plan of Treatment Upcoming Encounters Date Type Department Care Team (Late st Contact Info) Description 08/08/2024 9:00 AM EDT Laboratory Laboratory [facility] [address] [place] [phone] [facility] [address] [facility] [place] [address] 08/15/2024 3:30 PM EDT Office Visit Hematology/Oncology [facility] [address] [place] [phone] Fabiola Craven CRNP [address] [place] [address] [place] [address] 08/18/2024 9:30 AM EDT Office Visit Gynecology/Obstetrics [facility] Christensen [address] [place] [address] Colton Ward MD [address] [place] [address] 11/04/2024 2:00 PM EDT Office Visit Cardiology, [facility] [address] [place] [phone] Keira Kimball CRNP [address] [place] [address] 03/27/2025 10:00 AM EST Office Visit Gynecology/Obstetrics [facility] [address] [place] [address] Leela Eugene PA-C [address] [place] [address] Health Maintenance Due Date Last Done Comments Depression Screening 1999 Diabetes Screening 09/28/2023 09/27/2020, 0 09/26/2015, 09/23/2015 COVID-19 Vaccine ( season) 2023 DTap/Tdap Vaccines (3 - Td or Tdap) 08/22/2025 08/23/2015, 12/11/2014, 07/20/1992 Pap Smear 05/11/2026 05/11/2023, 11/21, 12/09/2019, Additional history exists Cervical Cancer Screening [...] Not on filedocumented as of this encounter Care Teams Radio Time Salesperson Relationship Specialty Start Date End Date Pro, Alvino Davis MD [address] [facility] [place] [address] PCP - General Internal Medicine 09/27/20 documented as of this encounter
--- OUTSIDE RECORDS SUMMARY | 2024-08-01 09:22 | External Medical Summary ---
Author Name Unknown Address Unknown Organization K0G:[facility] [place] [facility] - [address] [place] [address] Laboratory Report Ordering Provider Test Date Status BARB GARCIA 07/28/2024 12:55:31 Final Observation Date Value Abnormality Reference (Units ) Status SYNC LEUKOCYTES IN BLOOD BY AUTOMATED COUNT 07/28/2024 12:55:31 7.32 4.00-10.80 (K/uL) Final Segs 07/28/2024 12:55:31 52.9 40.0-75.0 (%) Final Lymphs % 07/28/2024 12:55:31 29.6 18.0-42.0 (%) Final Monos 07/28/2024 12:55:31 10.9 1.0-11.0 (%) Final Eosinophils 07/28/2024 12:55:31 6.3 Above high normal 0.0-6.0 (%) Final Basos 07/28/2024 12:55:31 0.3 0.0-2.0 (%) Final Absolute Segs 07/28/2024 12:55:31 3.87 1.80-7.70 (K/uL) Final Lymphs, absolute 07/28/2024 12:55:31 2.17 1.00-4.80 (K/ul) Final Monos, Abs 07/28/2024 12:55:31 0.80 0.00-1.10 (K/uL) Final Eos, Abs 07/28/2024 12:55:31 0.46 0.00-0.70 (K/uL) Final Basos, Abs 07/28/2024 12:55:31 0.02 0.00-0.20 (K/uL) Final Performing Location [facility] [place] [facility] 0 - [address] [place] [address]
--- OUTSIDE RECORDS SUMMARY | 2024-08-01 09:22 | External Medical Summary ---
Author Name Unknown Address Unknown Organization [facility] [place] [address] - [address] [place] [address] Laboratory Report Ordering Provider Test Date Status BARB GARCIA 07/28/2024 12:55:31 Final Observation Date Value Abnormality Reference (Units ) Status WBC, Total 07/28/2024 12:55:31 7.32 4.00-10.8 0 (K/uL) Final RBC 07/28/2024 12:55:31 4.27 3.85-5.15 (M/uL) Final Hemoglobin 07/28/2024 12:55:31 12.5 12.0-15.3 (g/dL) Final HCT 07/28/2024 12:55:31 36.8 36.0-45.2 (%) Final MCV 07/28/2024 12:55:31 86.2 81.5-97.5 (fL) Final MCH 07/28/2024 12:55:31 29.3 27.0-34.0 (pg) Final MCHC 07/28/2024 12:55:31 34.0 32.0-36.0 (g/dL) Final RDW 07/28/2024 12:55:31 13.3 11.5-15.5 (%) Final Platelets 07/28/2024 12:55:31 278 140-400 (K /uL) Final MPV 07/28/2024 12:55:31 9.9 6.6-11.1 ( fL) Final Performing Location [facility]ORY [facility]-[address] - [address] [place] [address]
--- OUTSIDE RECORDS SUMMARY | 2024-08-01 09:22 | External Medical Summary | Summary of Care ---
Author Name Unknown Organization [facility] Address [address] [place] [address] Phone [phone] Care Team Providers Care Blocker And Polisher Name Role Phone Alvino Griffin MD Primary Care Provider [phone]- [phone] Encounter Details Date Type Department Care Team (Late st Contact Info) Description 03/10/2024 Telephone Hematology/Oncology [facility] [address] [place] [facility] [place] [address] Services, Scheduling [address] [place] [address] Allergies Active Allergy Reactions Criticality Noted Date Comments Dicyclomine Hcl 11/01/2017 documented as of this encounter (statuses as of 06/10/2024) Medications Ibuprofen 600 MG Oral Tablet (Motrin) TAKE 1 TABLET BY MOUTH EVERY 6 HOURS NEEDED FOR FEVER OR PAIN 03/06/2022 Active Escitalopram Oxalate 5 MG Oral Tablet (Lexapro) Take 1 Tablet by mouth in the morning. 05/11/2022 Active Megestrol Acetate 40 MG Oral Tablet (Megace)Indicat ions:Menorrhagi a with regular cycle Take 1 Tablet by mouth in the morning and 1 Tablet at noon and 1 Tablet before bedtime. 60 Tablet 1 03/05/2024 Active documented as of this encounter (statuses as of 06/10/2024) Active Problems Problem Noted Date Diagnosed Date Iron deficiency anemia due to chronic blood loss 05/08/2022 Menorrhagia with regular cycle 02/23/2022 Uterine leiomyoma 02/23/2022 Advanced directives, counseling/discussion 04/27 Overview (03/09/2015): No, Advance Directive brochure offered, patient declined. documented as of this encounter (statuses as of 06/10/2024) Resolved Problems Problem Noted Date Diagnosed Date [...] 01/27/20152015 Overview (05/18/2015): Taking metoprolol, following with stone and plate preparer apprentice. MFM referral placed Per Dr. Sandoval: Recommend [...] as of this encounter (statuses as of 06/10/2024) Immunizations Name Administration Dates Next Due Seasonal Influenza, PF, 6 M & above, IM , (FluLaval or Fluzone) 02/12/2023,01/22/2020 TDAP (age 10 and older)(Boostrix) 08/23/2015 documented as of this encounter Social History Tobacco Use Types Packs/Day Years Used Date Smoking Tobacco: Never Smokeless Tobacco: Never Alcohol Use Standard Drinks/Week Comments No 0 (1 standard drink = 0.6 oz pur e alcohol) None Comments No Sex and Gender Information Value Date Recorded Sex Assigned at Not on file Legal Sex Female 7:19 AM EST Gender Identity Not on file Sexual Orientation Not on file 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 Called patient, advised her it is ok to still get iron infusion tomorrow. She verbalized understanding. * Telephone Encounter - Diane Modi OSA - 03/10/2024 12:46 PM EST Pt asking since she is having a blood transfusion done today fi that will mess up her getting her iron tomorrow and if she does have to be rescheduled she can not do as she is getting surgery. Please advise. documented in this encounter Plan of Treatment Upcoming Encounters Date Type Department Care Team (Late st Contact Info) Description 08/08/2024 9:00 AM EDT Laboratory Laboratory [facility] [address] [place] [phone] Jon Taylor [address] [place] [address] 08/15/2024 3:30 PM EDT Office Visit Hematology/Oncology [facility] [address] [place] [phone] Fabiola Craven CRNP [address] [place] [address] 11/04/2024 2:00 PM EDT Office Visit Cardiology, [facility] [address] [place] [address] Keira Kimball CRNP [address] [place] [address] 03/27/2025 10:00 AM EST Office Visit Gynecology/Obstetrics [facility] [address] [place] [address] Leela Eugene PA-C [address] [place] [address] Health Maintenance Due Date Last Done Comments Depression Screening 10/27/2016 10/28/2015 Diabetes Screening 09/28/2023 09/27/2020, 0 09/26/2015, 09/23/2015 [...] filedocumented as of this encounter Care Teams Blocker And Polisher Relationship Specialty Start Date End Date Pro, Alvino Davis MD [address] [place] [address] PCP - General Internal Medicine 09/27/20 documented as of this encounter
--- OUTSIDE RECORDS SUMMARY | 2024-08-01 09:22 | External Medical Summary ---
Author Name Unknown Address Unknown Organization [facility] [place] [address] - [address] [place] [address] Laboratory Report Ordering Provider Test Date Status LUANNE NUÑEZ 05/02/2024 16:38:41 Final Observation Date Value Abnormality Reference (Units ) Status SYNC LEUKOCYTES IN BLOOD BY AUTOMATED COUNT 05/02/2024 16:38:41 6.43 4.00-10.80 (K/uL) Final Segs 05/02/2024 16:38:41 44.7 40.0-75.0 (%) Final Lymphs % 05/02/2024 16:38:41 37.6 18.0-42.0 (%) Final Monos 05/02/2024 16:38:41 9.2 1.0-11.0 (%) Final Eosinophils 05/02/2024 16:38:41 8.2 Above high normal 0.0-6.0 (%) Final Basos 05/02/2024 16:38:41 0.3 0.0-2.0 (%) Final Absolute Segs 05/02/2024 16:38:41 2.87 1.80-7.70 (K/uL) Final Lymphs, absolute 05/02/2024 16:38:41 2.42 1.00-4.80 (K/ul) Final Monos, Abs 05/02/2024 16:38:41 0.59 0.00-1.10 (K/uL) Final Eos, Abs 05/02/2024 16:38:41 0.53 0.00-0.70 (K/uL) Final Basos, Abs 05/02/2024 16:38:41 0.02 0.00-0.20 (K/uL) Final Performing Location [facility] [place] 57-[address] - [address] [place] [address]
--- OUTSIDE RECORDS SUMMARY | 2024-08-01 09:22 | External Medical Summary | Summary of Care ---
Author Name Unknown Organization [facility] Address [address] [facility] [address] Phone [phone] Care Team Providers Care Spring Former Name Role Phone Alvino Griffin MD Primary Care Provider +1- [phone] Reason for Visit * Reason Comments Outpatient Testing Encounter Details Date Type Department Care Team (Late st Contact Info) Description 05/02/2024 2:40 PM EST Laboratory Laboratory, [facility] [address] [place] [phone] [facility] [address] [place] [address] Iron deficiency anemia due to chronic blood loss Allergies Active Allergy Reactions Criticality Noted Date Comments Dicyclomine Hcl 11/01/2017 documented as of this encounter (statuses as of 05/02/2024) Medications Ibuprofen 600 MG Oral Tablet (Motrin) [...] before bedtime. 60 Tablet 1 03/05/2024 Active Tranexamic Acid 650 MG Oral Tablet take 1 tablet by mouth three times daily 30 Tablet 1 03/13/2024 4:39 PM EST 03/13/2024 Active Metoprolol Tartrate 25 MG Oral Tablet (Lopressor) Take 1 Tablet by mouth in the morning and 1 Tablet before bedtime. 180 Tablet 3 04/18/2024 Active Hospital, Clinic, or Other Facility Administered Medication Ordered Dose Route Frequency Start Date End Date Status medroxyPROGESTERone (contracep) (Depo-Provera) inj 150 mgIndications:Postoperative state,Menorrhagia with regular cycle 150 mg IM [id number] 03/27/2024 Active documented as of this encounter (statuses as of 05/02/2024) Active Problems Problem Noted Date Diagnosed Date Iron deficiency anemia due to chronic blood loss 05/08/2022 Menorrhagia with regular cycle 02/23/2022 Uterine leiomyoma 02/23/2022 Advanced directives, counseling/discussion 04/27 Overview (03/09/2015): No, Advance Directive brochure offered, patient declined. documented as of this encounter (statuses as of 05/02/2024) Resolved Problems Problem Noted Date Diagnosed Date Resolved Date History of anemia 05/18/2015 09/21/2015 Overview (05/18/2015): Prior to this , history of severe anemia, Hemoglobin of 6-7. [place] [facility] on iron TID. Has requested CBC [...] 01/27/20152015 Overview (05/18/2015): Taking metoprolol, following with inflated pad buffer. MFM referral placed Per Dr. Sandoval: Recommend [...] as of this encounter (statuses as of 05/02/2024) Immunizations Name Administration Dates Next Due Seasonal [...] Care Team (Late st Contact Info) Description 05/14/2024 10:00 AM EST Laboratory Laboratory [facility] [address] [place] [phone] Jon Taylor [facility] [address] [place] [address] 05/16/2024 3:00 PM EST Office Visit Gynecology/Obstetrics [facility] [address] [place] [address] Leela Eugene PA-C [address] [place] [address] 08/08/2024 9:00 AM EDT Laboratory [facility] [address] [place] [phone] Jon Taylor [facility] [address] [place] [address] 08/15/2024 3:30 PM EDT Office Visit Hematology/Oncology [facility] [address] [place] [phone] Fabiola Craven CRNP [address] [facility] [place] [phone] 11/04/2024 2:00 PM EDT Office Visit Cardiology, [facility] 132 [facility] [place] [address] Keira Kimball CRNP [address] [facility] [place], [place] [phone] Pending Results Name Type Priority Associated Diagnoses Date /Time IRON SCREEN, INCLUDING TIBC Lab STAT Iron deficiency anemia due to chronic blood loss 05/02/2024 4:38 PM EST FERRITIN Lab STAT Iron deficiency anemia due to chronic blood loss 05/02/2024 4:38 PM EST Health Maintenance Due Date Last Done Comments [...] Priority Date/Time Associated Diagnosis Comments DIFFERENTIAL, AUTOMATED STAT 05/02/2024 4:38 PM EST Iron deficiency anemia due to chronic blood loss CBC STAT 05/02/2024 4:38 PM EST Iron deficiency anemia due to chronic blood loss CBC STAT 05/02/2024 4:38 PM EST Iron deficiency anemia due to chronic blood loss documented in this encounter Results * (ABNORMAL) DIFFERENTIAL, AUTOMATED (05/02/2024 4:38 PM EST) WBC 6.43 4.00 - 10.80 K/uL 05/02/2024 4:52 PM EST [facility] [place] [facility] Neutrophils % 44.7 40.0 - 75.0 % 05/02/2024 4:52 PM EST [facility] [place] [facility]10 Lymphocytes % 37.6 18.0 - 42.0 % 05/02/2024 4:52 PM EST [facility] [place] [facility]10 Monocytes % 9.2 1.0 - 11.0 % 05/02/2024 4:52 PM EST [facility] [place] [facility] Eosinophils % 8.2(H) 0.0 - 6.0 % 05/02/2024 4:52 PM EST [facility] [place] [facility] Basophils % 0.3 0.0 - 2.0 % 05/02/2024 4:52 PM EST [facility] [place] [facility] Absolute Neutrophils 2.87 1.80 - 7.70 K/uL 05/02/2024 4:52 PM EST [facility] [place] [facility] Absolute Lymphocytes 2.42 1.00 - 4.80 K/ul 05/02/2024 4:52 PM EST [facility] [place] [facility] Absolute Monocytes 0.59 0.00 - 1.10 K/uL 05/02/2024 4:52 PM EST [facility] 57-10 Absolute Eosinophils 0.53 0.00 - 0.70 K/uL 05/02/2024 4:52 PM EST [facility] [place] 57-10 Absolute Basophils 0.02 0.00 - 0.20 K/uL 05/02/2024 4:52 PM EST [facility] 57-10 Blood Venous blood specimen / Unknown Venipuncture / Unknown 05/02/2024 4:38 PM EST 05/02/2024 4:38 PM EST us Fabiola CALDERON LAB BLOOD ORDERABLES Fi nal Result [facility] [place] [address] [place] [address] * CBC (05/02/2024 4:38 PM EST) WBC 6.43 4.00 - 10.80 K/uL 05/02/2024 4:52 PM EST [facility] [place] 57[facility]10 RBC 4.31 3.85 - 5.15 M/uL 05/02/2024 4:52 PM EST [facility] [place] 5710 HGB 12.0 12.0 - 15.3 g/dL 05/02/2024 4:52 PM EST [facility] [place] 57[facility]10 HCT 36.7 36.0 - 45.2 % 05/02/2024 4:52 PM EST [facility] [place] [facility]10 MCV 85.2 81.5 - 97.5 fL 05/02/2024 4:52 PM EST [facility] [place] 57[facility]10 MCH 27.8 27.0 - 34.0 pg 05/02/2024 4:52 PM EST [facility] [place] 57[facility]10 MCHC 32.7 32.0 - 36.0 g/dL 05/02/2024 4:52 PM EST [facility] [place] 57[facility]10 RDW 12.2 11.5 - 15.5 % 05/02/2024 4:52 PM EST [facility] [place] 57-10 PLT 246 140 - 400 K/uL 05/02/2024 4:52 PM EST [facility] [place] [facility] MPV 9.8 6.6 - 11.1 fL 05/02/2024 4:52 PM EST [facility] [place] [facility]10 Blood Venous blood specimen / Unknown Venipuncture / Unknown 05/02/2024 4:38 PM EST 05/02/2024 4:38 PM EST us Fabiola CALDERON LAB BLOOD ORDERABLES Fi nal Result [facility] [place] [facility] [place] [address] documented in this encounter Visit Diagnoses Diagnosis Iron deficiency anemia due to chronic blood loss Iron deficiency anemia secondary to blood loss (chronic) documented in this encounter Care Teams Spring Former Relationship Specialty Start Date End Date Pro, Alvino Davis MD [address] [facility], [place] [address] PCP - General Internal Medicine 09/27/20 documented as of this encounter
--- OUTSIDE RECORDS SUMMARY | 2024-08-01 09:22 | External Medical Summary | Summary of Care ---
Author Name Unknown Organization [facility] Address [address] [facility] [place] [address] Phone [phone] Care Team Providers Care Soaker Name Role Phone , Alvino Davis MD Primary Care Provider +1- [phone] Encounter Details Date Type Department Care Team (Late st Contact Info) Description 03/07/2024 Telephone Pre Surgery Center, [facility] [address] [place] [address] Colton Ward MD [address] [place] [address] Allergies Active Allergy Reactions Criticality Noted Date Comments Dicyclomine Hcl 11/01/2017 documented as of this encounter (statuses as of 06/07/2024) Medications Ibuprofen 600 MG Oral Tablet (Motrin) [...] as of this encounter (statuses as of 06/07/2024) Active Problems Problem Noted Date Diagnosed Date Iron deficiency anemia due to chronic blood loss 05/08/2022 Menorrhagia with regular cycle 02/23/2022 Uterine leiomyoma 02/23/2022 Advanced directives, counseling/discussion 04/27 Overview (03/09/2015): No, Advance Directive brochure offered, patient declined. documented as of this encounter (statuses as of 06/07/2024) Resolved Problems Problem Noted Date Diagnosed Date Resolved Date History of anemia 05/18/2015 09/21/2015 Overview (05/18/2015): Prior to this , history of severe anemia, Hemoglobin of 6-7. [place] [facility] [place] TID. Has requested CBC [...] 01/27/20152015 Overview (05/18/2015): Taking metoprolol, following with circulation supervisor. MFM referral placed Per Dr. Sandoval: Recommend [...] as of this encounter (statuses as of 06/07/2024) Immunizations Name Administration Dates Next Due Seasonal [...] encounter Miscellaneous Notes * Telephone Encounter - Jania Benavides RN - 03/07/2024 11:28 AM EST Called patient for pre anesthesia evaluation for upcoming procedure ,no answer. Left message on machine /request return call documented in this encounter Plan of Treatment Upcoming Encounters Date Type Department Care Team (Late st Contact Info) Description 08/08/2024 9:00 AM EDT Laboratory Laboratory [facility] [address] [facility] [place] [phone] [place] [address] [place] [address] 08/15/2024 3:30 PM EDT Office Visit Hematology/Oncology [facility] [address] [facility] [place] [phone] Fabiola Craven CRNP [address] [place] [address] 11/04/2024 2:00 PM EDT Office Visit Cardiology, [facility] [address] [facility] [place] [address] Keira Kimball CRNP [address] [place] [phone] 03/27/2025 10:00 AM EST Office Visit Gynecology/Obstetrics [facility] Christensen [address] [place] [address] Leela Eugene PA-C [address] [place] [address] Health Maintenance Due Date Last Done Comments [...] filedocumented as of this encounter Care Teams Soaker Relationship Specialty Start Date End Date Pro, Alvino Davis MD [address] [place], [place] [address] PCP - General Internal Medicine 09/27/20 documented as of this encounter
--- OUTSIDE RECORDS SUMMARY | 2024-08-01 09:23 | External Medical Summary ---
Author Name Unknown Address Unknown Organization [facility] [address] [facility] [address] Laboratory Report Ordering Provider Test Date Status LUANNE NUÑEZ 05/02/2024 16:38:41 Final Observation Date Value Abnormality Reference (Units ) Status Iron 05/02/2024 16:38:41 51 33-151 (ug /dL) Final Iron-binding capacity 05/02/2024 16:38:41 325 250-425 (ug/dL) Final Transferrin Sat % 05/02/2024 16:38:41 16 15 -55 (%) Final Performing Location [facility] [address] [address]
--- OUTSIDE RECORDS SUMMARY | 2024-08-01 09:23 | External Medical Summary ---
Author Name Unknown Address Unknown Organization [facility] [place] [address] - [address] [place] [address] Laboratory Report Ordering Provider Test Date Status LUANNE NUÑEZ 05/02/2024 16:38:41 Final Observation Date Value Abnormality Reference (Units ) Status WBC, Total 05/02/2024 16:38:41 6.43 4.00-10.8 0 (K/uL) Final RBC 05/02/2024 16:38:41 4.31 3.85-5.15 (M/uL) Final Hemoglobin 05/02/2024 16:38:41 12.0 12.0-15.3 (g/dL) Final HCT 05/02/2024 16:38:41 36.7 36.0-45.2 (%) Final MCV 05/02/2024 16:38:41 85.2 81.5-97.5 (fL) Final MCH 05/02/2024 16:38:41 27.8 27.0-34.0 (pg) Final MCHC 05/02/2024 16:38:41 32.7 32.0-36.0 (g/dL) Final RDW 05/02/2024 16:38:41 12.2 11.5-15.5 (%) Final Platelets 05/02/2024 16:38:41 246 140-400 (K /uL) Final MPV 05/02/2024 16:38:41 9.8 6.6-11.1 ( fL) Final Performing Location [facility] 57-[address] - [address] [place] [address]
--- OUTSIDE RECORDS SUMMARY | 2024-08-01 09:23 | External Medical Summary | Summary of Care ---
Author Name Unknown Organization [facility] Address [address] [facility] [place] [address] Phone [phone] Care Team Providers Care Trenching Machine Operator Name Role Phone , Alvino Davis MD Primary Care Provider [phone]- [phone] Reason for Visit * Reason Comments eRx-Medication Refill Encounter Details Date Type Department Care Team (Late st Contact Info) Description 04/18/2024 Refill Cardiology, [facility] [address] [place] [address] Holli Shearer, [address] [place] [address] Allergies Active Allergy Reactions Criticality Noted Date Comments Dicyclomine Hcl 11/01/2017 documented as of this encounter (statuses as of 04/18/2024) Medications Ibuprofen 600 MG Oral Tablet (Motrin) TAKE 1 TABLET BY MOUTH EVERY 6 HOURS NEEDED FOR FEVER OR PAIN 2 Active Escitalopram Oxalate 5 MG Oral Tablet (Lexapro) Take 1 Tablet by mouth in the morning. 3 Active Megestrol Acetate 40 MG Oral Tablet (Megace)Indica tions:Menorrha tiago with regular cycle Take 1 Tablet by mouth in the morning and 1 Tablet at noon and 1 Tablet before bedtime. 60 Tablet 1 4 Active Tranexamic Acid 650 MG Oral Tablet take 1 tablet by mouth three times daily 30 Tablet 1 03/13/2024 4:39 PM EST 4 Active Metoprolol Tartrate 25 MG Oral Tablet (Lopressor) Take 1 Tablet by mouth in the morning and 1 Tablet before bedtime. 180 Tablet 3 4 Active Metoprolol Tartrate 25 MG Oral Tablet (Lopressor) Take 1 Tablet by mouth in the morning and 1 Tablet before bedtime. 180 Tablet 3 3 04/18/20 24 Discontinued Hospital, Clinic, or Other Facility Administered Medication Ordered Dose Route Frequency Start Date End Date Status medroxyPROGESTERone (contracep) (Depo-Provera) inj 150 mgIndications:Postoperative state,Menorrhagia with regular cycle 150 mg IM [id number] 03/27/2024 Active documented as of this encounter (statuses as of 04/18/2024) Active Problems Problem Noted Date Diagnosed Date Iron deficiency anemia due to chronic blood loss 05/08/2022 Menorrhagia with regular cycle 02/23/2022 Uterine leiomyoma 02/23/2022 Advanced directives, counseling/discussion 04/27 Overview (03/09/2015): No, Advance Directive brochure offered, patient declined. documented as of this encounter (statuses as of 04/18/2024) Resolved Problems Problem Noted Date Diagnosed Date Resolved Date History of anemia 05/18/2015 09/21/2015 Overview (05/18/2015): Prior to this , history of severe anemia, Hemoglobin of 6-7. Saw hematology at [facility], started on iron TID. Has requested CBC [...] 01/27/20152015 Overview (05/18/2015): Taking metoprolol, following with immigration lawyer. MFM referral placed Per Dr. Sandoval: Recommend [...] as of this encounter (statuses as of 04/18/2024) Immunizations Name Administration Dates Next Due Seasonal [...] encounter Miscellaneous Notes * Telephone Encounter - Vanda William, [facility] - 04/18/2024 8:56 PM EST Signed Prescriptions: Disp Refills Metoprolol Tartrate 25 MG Oral Tablet (Lop*180 Ta*3 Sig: Take 1 Tablet by mouth in the morning and 1 Tablet before bedtime.Authorizing Provider: HOLLI SHEARER User: VANDA WILLIAM documented in this encounter Plan of Treatment Upcoming Encounters Date Type Department Care Team (Late st Contact Info) Description 05/14/2024 10:00 AM EST Laboratory Laboratory [facility] [place] [address] [place] [address] Claudia Lab [facility] [address] [place] [address] 05/16/2024 3:00 PM EST Office Visit Gynecology[facility]stetrics [facility] [address] [facility] [place] [address] Leela Eugene PA-C [address] [place] [place] [address] 08/08/2024 9:00 AM EDT Laboratory Laboratory [facility] [address] [place] [address] Claudia Lab [facility] [address] [facility] [place] [address] 08/15/2024 3:30 PM EDT Office Visit Hematology/Oncology [facility] [place] [address] [place] [phone] Fabiola Craven CRNP [address] [place] [address] 11/04/2024 2:00 PM EDT Office Visit Cardiology, [facility] [address] [facility] [place] [address] Keira Kimball CRNP [address] [place] [id number] Health Maintenance Due Date Last Done Comments Depression Screening 10/27/2016 10/28/2015 Diabetes Screening 09/28/2023 09/27/2020, 0 09/26/2015, 09/23/2015 COVID-19 Vaccine (2023- season) 2023 DTap/Tdap Vaccines (3 - Td [...] filedocumented as of this encounter Care Teams Trenching Machine Operator Relationship Specialty Start Date End Date Pro, Alvino Davis MD [address] [place] [address] PCP - General Internal Medicine 09/27/20 documented as of this encounter
--- NOTE | 2024-08-01 09:26 | History & Physical Bridge Note ---
Date of Service August 01, 2024 History & Physical Bridge Note I have examined the patient, reviewed the History & Physical and in the interval since the performance of the History & Physical I have noted the following changes of clinical significance: no changes noted
[2024-08-01] MEDS ORDERED: KETAMINE HCL 10MG/ML SYR ONE (09:33)
[2024-08-01] MEDS: ceFAZolin 2000MG 2,000 MG/15 ML SYR IV SCH (09:55)
[2024-08-01] MEDS: metroNIDAZOLE 500 MG/100 ML BAG IV STA (10:11)
[2024-08-01] MEDS ORDERED: ROCURONIUM BROMIDE 10 MG/ML 5 ML VIAL IV ONE (12:05)
[2024-08-01] MEDS ORDERED: fentaNYL citrate PF 100 MCG/2 ML VIAL ONE (12:09)
[2024-08-01] MEDS ORDERED: METHYLENE BLUE 0.5% 10 ML VIAL ONE (12:13)
--- NOTE | 2024-08-01 12:42 | XRay Report ---
KUB HISTORY: INTRA-OPERATIVE IMAGES FOR METAL SHAVING (FOUND AFTER IMAGES COMPARISON STUDY: 08/23/2021 FINDINGS: Distal aspect of the gastric tube overlies the proximal stomach just beyond the GE junction . Multiple surgical ports are present. Otherwise no radiopaque foreign body seen. There is expected f ree air. There is mild retained stool. No bowel obstruction seen. IMPRESSION: No radiopaque foreign body seen. ACT 112: Negative or not required by law. The above report was generated using voice recognition software. It may contain grammatical, syntax o r spelling errors. Electronically signed by: Madhu Rodarte M.D. 08/01/2024 12:41 PM
[2024-08-01] MEDS: BUPIVACAINE/EPINEPHRINE 0.5% MPF 1:200,000 30 ML VIAL ONE (12:45)
[2024-08-01] MEDS ORDERED: bisacodyL 10 MG SUPP PR PRN (13:05)
[2024-08-01] MEDS ORDERED: oxyCODONE/ACETAMINOPHEN 5mg/325mg TAB PO PRN (13:05)
[2024-08-01] MEDS ORDERED: ZOLPIDEM TARTRATE 5 MG TAB PO PRN (13:05)
[2024-08-01] MEDS ORDERED: MAGNESIUM HYDROXIDE SUSP 30 ML UDC PO PRN (13:05)
[2024-08-01] MEDS ORDERED: PROMETHAZINE 12.5 MG/50.5 ML BAG IV PRN (13:05)
[2024-08-01] MEDS ORDERED: SIMETHICONE 80 MG CHEW PO PRN (13:05)
[2024-08-01] MEDS ORDERED: ACETAMINOPHEN 325 MG TAB PO PRN (13:05)
--- NOTE | 2024-08-01 13:14 | Operative Report ---
Post Operative Report Pre & Post Diagnosis Operation Date: 08/01/24 09:20 Pre-Op Diagnosis: Menorrhagia, Fibroid Uterus Post-Op Diagnosis: Menorrhagia, Fibroid Uterus I identified the patient and participated in the time-out.: Yes Procedure Operation Date: 08/01/24 09:20 Actual Procedures p Total Laparoscopic Hysterectomy, Bilateral Salpingectomy, Cystoscopy and Extensive Lysis of Adhesions(Bilateral) - Colton Ward MD Surgeon Colton Ward MD Supervisor Porcelain Department Ricki Negrete PA-C Estimated Blood Loss 10 Findings Consistent with Post-Op Diagnosis Normal female escutcheon. No lesions in the vagina cervix appear grossly normal. Laparoscopic findings showed extensive adhesion. The omentum was stuck to the anterior abdominal wall. The uterus was also stuck to the abdominal wall. Fibroid uterus is about 12 weeks size. Patient has had 3 sections. A portion of the entire surgery time was used for dissecting of adhesions. Both ureters were identified after extensive dissection. Appendix was seen and appeared grossly normal. Both fallopian tubes and ovaries appeared grossly normal. Both fallopian tubes and ovaries appear grossly normal. The left ovary appeared to have simple cyst. Fluids IVF; 1600ml Urine ; 560ml EBL; 10ml Specimens 1. Uterus with cervix. 2. Left fallopian tube 3. Right fallopian tube. Drains None Anesthesia Type General Indications 1. Menorrhagia 2. Fibroid uterus Description of Procedure FINDINGS: DESCRIPTION OF PROCEDURE: The patient was prepped and draped in normal sterile fashion in the dorsal lithotomy position. Rosario catheter was placed without difficulty. An Advincula uterine manipulator was placed in the uterus to help with colpotomy. Attention was paid to the abdominal part of the procedure where a supraumbilical incision was made and carried down to the fascia. Reza was used to grab the fascia. Veress needle was introduced into the abdomen at a 45-degree angle wh ile tenting up the abdomen. Intra-abdominal placement was confirmed with a water-filled syringe. A water drop and suction test was performed. The abdomen was insufflated with CO2 gas. The Veress needle was removed and a 5 mm non bladed trocar was attached to a laparoscope was introduced into the abdomen under direct visualization. This was a non bladed trocar. Once inside the abdomen, laparoscope was repositioned. Inspection of the abdomen shows the findings as dictated above. Three more accessory ports were placed, two 5 mm accessory ports were placed in the lower abdomen on the contralateral side, in addition, an 11 mm trocar was placed on the left upper quadrant. General inspection of the abdomen and pelvis was performed as dictated above. There was an adhesion of omentum to the umbilicus. This omentum was examined. There was no bowel in the omentum, so the LigaSure was passed through one of the contralateral port and dissection of the omentum from the abdominal wall was performed. There was good hemostasis. Left and right fallopian tubes, the ureters, uterosacrals, bowels were examined and identified. LigaSure was passed through the left accessory port Juliana retractor is passed through the contralateral port. Extensive lysis of adhesion of the omentum to the abdominal was performed. This is done using traction and countertraction. The anterior part of the uterus is also attached to the abdominal wall. Once again extensive lysis of adhesion is also performed careful attention is paid to the bladder. A significant portion of the operating time was used for the adhesion for extensive lysis of adhesion. After the above extensive lysis of adhesion the left. fallopian tube was identified and grabbed 4 cm from the cornua of the uterus with the LigaSure and transected. This was followed by opening of the left anterior leaf of the broad ligament. This allowed for fenestration of the posterior left broad ligament. The mid-section of the left fallopian tube, utero-ovarian and meso-ovarian pedicles were transected as well. Same procedure was performed on the contralateral side. The anterior broad ligament dissection was carried to the mid-section of the vesicouterine peritoneum over the bladder using the Harmonic scalpel. Same procedure was carried out on the contralateral side. The posterior broad ligament peritoneum was carefully dissected also from both sides over the uterosacral arch in order to displace the ureters laterally. Using traction and countertraction, the [place] retractor and irrigation probe was used to further dissect the bladder off the lower segment of the uterus. Bladder pillars and pubovesical fascia was dissected as well. Harmonic scalpel was used to obtain hemostasis where needed. Uterine manipulator was now palpable over the vaginal tissue. The right uterine pedicles were skeletonized and coagulated with the LigaSure. Good hemostasis was obtained. Same procedure was performed on the contralateral side. Cardinal ligaments were transected on both sides. Once good hemostasis was obtained, colpotomy was performed using the LigaSure hook from both sides. Uterus was removed through the vagina while still attached to the uterine manipulator. The bulb was attached to the uterine manipulator was reinserted into the vagina to establish pneumoperitoneum. With a grasper, the remaining section of the left ovary and tube were positioned anteromedially. The left fallopian tube is grabbed with ligature and transected. The transection is done close to the fallopian tube in order to preserve the ovarian vascular integrity. The left fallopian tube is removed through the 11 mm port leaving the left ovary intact. Same procedures performed on the right adnexa. The right fallopian tube is also removed once again leaving the right ovary behind.Right fallopian tube specimen is also removed through the 11 mm port. Both fallopian tube specimens sent to pathology for pathological analysis EndoStitch closure device was passed through the 11 mm port on the left. Using the [place] grasper for traction, colpotomy closure was performed. The uterosacral ligaments incorporated into the closure in order to decrease the risk of prolapse. Lapro ties were used with the EndoStitch. The 11-mm trocar site was closed with a Jag-Mariee under direct visualization. Attention was paid to the cystoscopy part of the procedure where a cystoscope was introduced into the bladder. There are no sutures seen in the bladder. There were no gross blood seen in the bladder as well. The bubble sign is noted showing the bladder was a close cavity. Both ureters were seen and there was efflux from both uterus. The skin incisions are closed with Dermabond, except for the 11-mm trocar site, which was closed with 4-0 Monocryl. The patient was returned to recovery in stable condition. Inspection of the vagina shows the vaginal cuff was intact. All instruments were removed from the vagina and the bladder and accounted for x2. Supervisor Porcelain Department was necessary for retraction and manipulation of instruments in order to provide for a safe operationattest to the content of the Intraoperative Record and any orders documented therein. Any exceptions are noted below.
[2024-08-01] MEDS: fentaNYL citrate PF 100 MCG/2 ML VIAL IV PRN (13:42)
[2024-08-01] MEDS: KETOROLAC 30 MG/ML VIAL IV PRN (14:48)
[2024-08-01] MEDS: oxyCODONE/ACETAMINOPHEN 5mg/325mg TAB PO PRN (16:12)
[2024-08-01] MEDS: IBUPROFEN 600 MG TAB PO PRN (20:05)
[2024-08-01] MEDS: DOCUSATE SODIUM 100 MG CAP PO SCH (21:11)
[2024-08-01] MEDS: METOPROLOL TARTRATE 25 MG TAB PO SCH (21:11)
[2024-08-02] MEDS ORDERED: Nursing to Pharmacy Communication SCH (06:15)
[2024-08-02 07:00] LABS: Basophils # (auto) 0.01 K/uL (0.00-0.20); Basophils % (auto) 0.1 %; Eosinophils # (auto) 0.06 K/uL (0.00-0.50); Eosinophils % (auto) 0.9 %; Hematocrit (blood only) 29.7 % (37.0-47.0); Immature Granulocytes # (auto) 0.04 K/uL (0.01-0.20); Immature Granulocytes % (auto) 0.6 %; Lymphocytes # (auto) 1.66 K/uL (1.20-3.40); Lymphocytes % (auto) 24.3 %; Mean Corpuscular Hgb Conc 33.7 g/dL (32.0-36.0); Mean Corpuscular Volume 86.1 fL (80.0-100.0); Mean Platelet Volume 9.9 fL (9.4-12.4); Monocytes # (auto) 0.69 K/uL (0.11-0.59); Monocytes % (auto) 10.1 %; Neutrophils # (auto) 4.37 K/uL (1.40-6.50); Platelet Count 209 K/uL (130-400); RDW Coefficient of Variation 13.6 % (11.5-14.5); RDW Standard Deviation 42.3 fL (36.4-46.3); Red Blood Count 3.45 M/uL (4.20-5.40); White Blood Count 6.83 K/ul (4.8-10.8)
[2024-08-02 07:28] LABS: BUN Creatinine Ratio 18.4 (10-20); Calcium 8.3 mg/dl (8.6-10.3); Creatinine Clr Calc Pharmacy 102.1 ml/min; Potassium 3.8 mmol/L (3.5-5.1)
[2024-08-02] MEDS: ESCITALOPRAM OXALATE 10 MG TAB PO SCH (08:34)
[2024-08-02 09:31] VITALS: BP 100/63; RESP 14; TEMP 98.1; O2SAT 97
--- NOTE | 2024-08-02 10:28 | Obstetrical Progress Note ---
Date of Service August 02, 2024 Assessment & Plan (1) Postop check: POD #1 Lap hyst with extensive lysis of adhesion Pt doing well d/c home with instructions Physical Exam Constitutional WD/WN, vitals as above Eyes PERRL, conjunctivae normal, anicteric sclerae ENMT external ear and nose normal, oropharynx normal Neck trachea midline, no thyromegaly Respiratory normal respiratory effort, lungs clear to auscultation Cardiovascular RRR, no murmur, no edema Chest (Breasts) normal inspection/palpation of breasts Gastrointestinal (Abdomen) normal bowel sounds, soft, nontender, no hepatosplenomegaly Musculoskeletal no cyanosis or clubbing, extremities motor strength 5/5 Skin + incision (Incision clean,dry and intact) Neurologic patellar DTR's 2+ bilat, sensation intact Psychiatric A+Ox3, euthymic affect Genitourinary no vaginal lesions, no adnexal mass Lymphatic no cervical or axillary lymphadenopathy Results & Data Vital Signs (Past 12 Hours) Vital Signs Temp Pulse Resp BP Pulse Ox O2 Del Method 08/02/24 09:25 36.7 C 69 14 100/63 97 Room Air 08/02/24 04:02 36.8 C 76 18 93/54 L Room Air 08/01/24 23:36 36.8 C 73 16 93/57 L Room Air
--- OUTSIDE RECORDS SUMMARY | 2024-08-02 10:33 | External Medical Summary | Summary of Care ---
Author Name Unknown Organization [facility] Address [address] [place] [address] Phone [phone] Care Team Providers Care Technical Staff Engineer Name Role Phone Alvino Griffin MD Primary Care Provider +1- [phone] Encounter Details Date Type Department Care Team (Late st Contact Info) Description 08/01/2024 Result Scan Unspecified Department <No scans attached> Allergies Active Allergy Reactions Criticality Noted Date Comments Dicyclomine Hcl 11/01/2017 documented as of this encounter (statuses as of 08/01/2024) Medications Ibuprofen 600 MG Oral Tablet (Motrin) [...] state,Menorrhagia with regular cycle 150 mg IM [id number] 03/27/2024 Active documented as of this encounter (statuses as of 08/01/2024) Active Problems Problem Noted Date Diagnosed Date Iron deficiency anemia due to chronic blood loss 05/08/2022 Menorrhagia with regular cycle 02/23/2022 Uterine leiomyoma 02/23/2022 Advanced directives, counseling/discussion 04/27 Overview (03/09/2015): No, Advance Directive brochure offered, patient declined. documented as of this encounter (statuses as of 08/01/2024) Resolved Problems Problem Noted Date Diagnosed Date Resolved Date History of anemia 05/18/2015 09/21/2015 Overview (05/18/2015): Prior to this , history of severe anemia, Hemoglobin of 6-7. Saw hematology at [facility], started on iron TID. Has requested CBC [...] 01/27/20152015 Overview (05/18/2015): Taking metoprolol, following with data entry operator. MFM referral placed Per Dr. Sandoval: Recommend [...] as of this encounter (statuses as of 08/01/2024) Immunizations Name Administration Dates Next Due Seasonal [...] Description 08/08/2024 9:00 AM EDT Laboratory Laboratory [facility] [address] [place] [phone] [address] [place] [address] 08/15/2024 3:30 PM EDT Office Visit Hematology/Oncology [facility] [place] [address] [place] [phone] Fabiola Craven CRNP [address] [place], [place] [address] [address] 08/18/2024 9:30 AM EDT Office Visit Gynecology/Obstetrics [facility] [address] [place] [address] Colton Ward MD [address] [place] [address] 11/04/2024 2:00 PM EDT Office Visit Cardiology, [facility] [address] [place] [phone] Keira Kimball CRNP [address] [place] [address] 03/27/2025 10:00 AM EST Office Visit Gynecology/Obstetrics [facility] [address] [place] [address] Leela Eugene PA-C [address] [place] [address] Health Maintenance Due Date Last Done Comments [...] Procedure Name Priority Date/Time Associated Diagnosis Comments PROCEDURE SCANNED RESULT 08/01/2024 documented in this encounter Results * PROCEDURE SCANNED RESULT (08/01/2024) 08/01/2024 us No Physician Data Unknown SURGERY Final Result documented in this encounter Care Teams Technical Staff Engineer Relationship Specialty Start Date End Date Pro, Alvino Davis MD [address] [place] [address] PCP - General Internal Medicine 09/27/20 documented as of this encounter
--- NOTE | 2024-08-02 10:34 | Discharge Summary ---
Date of Service August 02, 2024 Admission HPI Per Admitting Provider Patient is 38-year-old with history of menorrhagia and fibroid uterus. Patient underwent total laparoscopic hysterectomy with bilateral salpingectomy and extensive lysis of adhesion on 08/01/2024 Details of surgery as an operative note. Has done well and today has been discharged home in stable condition with instructions. Discharge Data Procedures Performed Operation Date: 08/01/24 09:20 Actual Procedures p Total Laparoscopic Hysterectomy, Bilateral Salpingectomy, and Extensive Lysis of Adhesions(Bilateral) - Colton Ward MD s Cystoscopy - Colton Ward MD Hospital Course (1) Postop check: Discharge Instructions Post op course was unremarkable and pt is discharges home in stable condition. Discharge instructions including medications,diet, activity and follow up appointments are reviewed with pt.
[2024-08-02 10:47] VITALS: PULSE 91
[2024-08-03] MEDS ORDERED: ESCITALOPRAM OXALATE 10 MG TAB PO SCH (09:00)
== END 2024-08-02 11:14 | disposition home or self-care (01) ==
LOC: 4E2 08:06 → ASU 08:06